=== PATIENT | male | born 1960 | race Caucasian/White ===

== ENCOUNTER 2018-02-07 06:13 | Observation (INO) | payer BC, OTHER ==
[~2018-02-07] VITALS: Ht 180.3 cm; Wt 91.9 kg
[~2018-02-07 06:13] MED LIST: ACET-1222 PO; ALBU1AER9 INH; AMIT10TA6 PO; ASPEC81 PO; DIVA250T PO; MAGN400T6 PO; MONT1TAB3 PO; NRV5 PO; PRAV40TA2 PO; PRT40 PO; RIBO100T9 PO
[2018-02-07] MEDS ORDERED: ACETAMINOPHEN 500 MG TAB PO STA (06:45)
[2018-02-07] MEDS ORDERED: ASPIRIN 81 MG CHEW PO STA (06:45)
[2018-02-07 07:02] LABS: HEMATOCRIT 43.8 % (42-52); HEMOGLOBIN 15.2 g/dL (14.0-18.0); MEAN CELL VOLUME 90.9 fL (80-100); MEAN CORPUSCULAR HEMOGLOBIN 31.5 pg (25-34); MEAN CORPUSCULAR HGB CONC 34.7 g/dl (32-36); MEAN PLATELET VOLUME 9.6 fL (7.4-10.4); PLATELET COUNT 285 K/uL (130-400); RED CELL DISTRIBUTION WIDTH SD 42.9 fL (36.4-46.3)
--- NOTE | 2018-02-07 07:07 | DIAGNOSTIC IMAGING REPORT ---
CHEST ONE VIEW PORTABLE CLINICAL HISTORY: 57 years-old Male presenting with CHEST PAIN. TECHNIQUE: Portable upright AP view of the chest was obtained. COMPARISON: 10/04/2016. FINDINGS: Cardiomediastinal silhouette normal. Mild prominence of pulmonary vasculature. Lungs and pleural spaces clear. Osseous structures normal. Upper abdomen normal. IMPRESSION: 1. No acute cardiopulmonary disease. Electronically signed by: Dhaval Medina M.D. 02/07/2018 7:05 AM Dictated Date/Time: 02/07/2018 7:02 AM
[2018-02-07] MEDS ORDERED: DIVA250T PO (07:08)
[2018-02-07 07:10] LABS: ALBUMIN 3.7 gm/dl (3.4-5.0); ALT/SGPT 35 U/L (12-78); AST/SGOT 18 U/L (15-37); BLOOD UREA NITROGEN 15 mg/dl (7-18); CARBON DIOXIDE 23 mmol/L (21-32); CREATININE 1.09 mg/dl (0.60-1.40); GLUCOSE 158 mg/dl (70-99); LIPASE 211 U/L (73-393); POTASSIUM 3.6 mmol/L (3.5-5.1); SODIUM 138 mmol/L (136-145)
[2018-02-07] MEDS ORDERED: AMLO5TAB4 PO (07:12)
[2018-02-07] MEDS ORDERED: ASPI81TA28 PO (07:12)
[2018-02-07] MEDS ORDERED: PANT40TA PO (07:12)
[2018-02-07 07:15] LABS: ALKALINE PHOSPHATASE 92 U/L (45-117)
[2018-02-07 07:17] LABS: PTT PATIENT 25.9 SECONDS (21.0-31.0)
--- NOTE | 2018-02-07 07:31 | EMERGENCY ROOM VISIT NOTE ---
History Report prepared by Jose Luis: Abram Alcantara Under the Supervision of: Dr. Joce Bond M.D. First contact with patient: 06:36 Chief Complaint: CHEST PAIN Stated Complaint: CHEST PAIN,MIGRAINE Nursing Triage Summary: Patient reports left sided chest pain that started last evening and got worse this morning. Denies shortness of breath, nausea, or diaphoresis. Patient has hx "cardiovaga syncope". Denies radiation of pain. History of Present Illness The patient is a 57 year old male who presents to the Emergency Room with complaints of intermittent left chest pain beginning last night (about 7.5 hours ago). The patient was laying in bed when his pain initially began. His pain resolved during the night, but returned this morning while at work. His pain is currently present, though improved. The patient rates his pain as a 6/ 10 in severity when at its worst. He denies any pain radiation. He has a history of migraines (for which he is on Depakote), and states that he has had a migraine with associated facial tingling recently (typical for him). The patient also complains of nausea this am. His most recent stress test was two years ago. He states that he felt normal earlier this week. The patient denies shortness of breath or diaphoresis. He denies any modifying factors. He notes that he has a history of cardiovagal syncope. Source of History: patient Onset: last night (7.5 hours ago) Position: chest (left) Symptom Intensity: 6/10 Timing: intermittent Modifying Factors (Worsening): other (none) Modifying Factors (Relieving): other (none) Associated Symptoms: + nausea, No diaphoresis, No SOB Review of Systems See HPI for pertinent positives & negatives. A total of 10 systems reviewed and were otherwise negative. Past Medical & Surgical Medical Problems: (1) Asthma (2) GERD (gastroesophageal reflux disease) (3) Hyperlipidemia (4) Migraine triggered seizures (5) Neurocardiogenic syncope Surgical Problems: (1) H/O colonoscopy (2) History of esophagogastroduodenoscopy (EGD) Family History Diabetes mellitus Stroke Social History Smoking Status: Never Smoker Alcohol Use: none Drug Use: none Marital Status: Housing Status: lives with significant other Occupation Status: employed Current/Historical Medications Scheduled Amlodipine Besylate (Norvasc), 2.5 MG PO QAM Aspirin (Aspirin Ec), 81 MG PO QAM Divalproex Sodium (Depakote Er), 1 TAB PO DIRECTED Divalproex Sodium (Depakote Er), 2 TAB PO HS Magnesium Oxide (Mag-Ox), 400 MG PO QAM Montelukast Sodium (Singulair), 10 MG PO QAM Pantoprazole (Protonix), 40 MG PO 1000 Pravastatin Sodium (Pravastatin Sodium), 40 MG PO HS Riboflavin (Vitamin B-2), 100 MG PO QAM Scheduled PRN Acetaminophen (Acetaminophen Extra Stren), 1,000 MG PO Q8 PRN for Pain or Fever Albuterol (Proair Hfa), 2 PUFFS INH Q4H PRN for Asthma Symptoms Allergies Coded Allergies: Azithromycin (Verified Allergy, Intermediate, ITCHING, 02/07/18) Physical Exam Vital Signs Date Time Temp Pulse Resp B/P (MAP) Pulse Ox O2 Delivery O2 Flow Rate FiO2 02/07/18 10:29 62 02/07/18 10:01 94 Room Air 02/07/18 09:02 64 14 112/76 94 Room Air 02/07/18 07:42 61 16 134/68 96 Room Air 02/07/18 06:29 73 02/07/18 06:19 98 Room Air 02/07/18 06:19 36.7 68 18 144/79 98 Room Air Physical Exam GENERAL: Patient is in no acute distress. HEENT: No acute trauma, normocephalic atraumatic, mucous membranes moist, no nasal congestion, no scleral icterus. NECK: No stridor, no adenopathy, no meningismus, trachea is midline. LUNGS: Clear to auscultation bilaterally, no wheeze, no rhonchi, breath sounds equal. HEART: Without murmurs gallops or rubs, regular rate and rhythm. CHEST: Mildly tender to the anterior chest wall. ABDOMEN: Soft, nontender, bowel sounds positive, no hernias, no peritonitis. EXTREMITIES: No cyanosis or edema, full range of motion of all the joints without pain or difficulty, no signs for acute trauma. NEUROLOGIC: Oriented x 3, no acute motor or sensory deficits, no focal weakness. SKIN: No rash, no jaundice, no diaphoresis. Medical Decision & Procedures ER Provider Diagnostic Interpretation: Radiology results as stated below per my review and radiologist interpretation: CHEST ONE VIEW PORTABLE. FINDINGS: Cardiomediastinal silhouette normal. Mild prominence of pulmonary vasculature. Lungs and pleural spaces clear. Osseous structures normal. Upper abdomen normal. IMPRESSION: 1. No acute cardiopulmonary disease. Electronically signed by: Dhaval Medina M.D. 02/07/2018 7:05 AM Laboratory Results 02/07/18 06:26 02/07/18 06:26 Test 02/07/18 06:26 Red Blood Count 4.82 M/uL (4.7-6.1) Mean Corpuscular Volume 90.9 fL (80-100) Mean Corpuscular Hemoglobin 31.5 pg (25-34) Mean Corpuscular Hemoglobin Concent 34.7 g/dl (32-36) RDW Standard Deviation 42.9 fL (36.4-46.3) RDW Coefficient of Variation 13.0 % (11.5-14.5) Mean Platelet Volume 9.6 fL (7.4-10.4) Prothrombin Time 10.3 SECONDS (9.0-12.0) Prothromb Time International Ratio 1.0 (0.9-1.1) Activated Partial Thromboplast Time 25.9 SECONDS (21.0-31.0) Partial Thromboplastin Ratio 1.0 D-Dimer < 190 ug/L FEU (0-500) Anion Gap 9.0 mmol/L (3-11) Est Creatinine Clear Calc Drug Dose 88.8 ml/min Estimated GFR () 88.1 Estimated GFR (Non- 76.0 BUN/Creatinine Ratio 13.7 (10-20) Calcium Level 9.0 mg/dl (8.5-10.1) Total Bilirubin 0.4 mg/dl (0.2-1) Aspartate Amino Transf (AST/SGOT) 18 U/L (15-37) Alanine Aminotransferase (ALT/SGPT) 35 U/L (12-78) Alkaline Phosphatase 92 U/L (45-117) Total Protein 7.0 gm/dl (6.4-8.2) Albumin 3.7 gm/dl (3.4-5.0) Globulin 3.3 gm/dl (2.5-4.0) Albumin/Globulin Ratio 1.1 (0.9-2) Lipase 211 U/L (73-393) Valproic Acid (Depakene) Level 62 mcg/ml (50-100) Hepatitis C Antibody Screen NEG (NEG) Laboratory results reviewed by me. Medications Administered Medications (Trade) Dose Ordered Sig/Fernando Route Start Time Stop Time Status Last Admin Dose Admin Aspirin (Aspirin Chew) 324 mg NOW STAT PO 02/07/18 06:45 02/07/18 06:47 DC 02/07/18 07:00 324 MG Acetaminophen (Tylenol Tab) 1,000 mg NOW STAT PO 02/07/18 06:45 02/07/18 06:47 DC 02/07/18 07:00 1,000 MG Morphine Sulfate (MoRPHine SULFATE INJ) 2 mg NOW STAT IV 02/07/18 10:46 02/07/18 10:59 DC 02/07/18 11:36 2 MG ECG Per My Interpretation Indication: chest pain Rate (beats per minute): 72 Rhythm: normal sinus Findings: other (Diffuse non-specific ST change. No ST elevation. No PVCs.) Comparison ECG Date: 10/05/2016 Change: Non-specific ST changes are new. ED Course 0639: The patient was evaluated in room A3. A complete history and physical exam was performed. 0645: Ordered Tylenol Tab 1000 mg PO, Aspirin Chew 324 mg PO. 0801: I updated the patient on his results. 0920: Upon reexamination the patient is resting comfortably. I discussed results and treatment plan with the patient. He verbalizes agreement and understanding. [facility] We discussed the patient's results and findings. The patient will be evaluated by [facility] for further management. Medical Decision The patient is a 57 year old male who presents to the ED with complaints of chest pain. Differential diagnoses considered include angina, musculoskeletal pain, dissection, PE, pneumonia, pneumothorax and VT. There is no leukocytosis or concerning anemia. No significant electrolyte abnormality or kidney failure. No hepatitis. EKG shows a normal sinus rhythm with some nonspecific ST changes laterally, these nonspecific changes are new looking back at old EKGs. Cardiac enzyme testing 2 does not show evidence for acute cardiac injury. Chest x-ray does not show pneumonia, mediastinal widening or pneumothorax. Valproic acid level is not elevated. There is no coagulopathy. The patient presents with anterior chest pain. The pain does seem reproducible on my exam. He did receive oral aspirin and oral Tylenol and basically feels about the same. He complains of a migraine but has a history of migraines. I spoke with Dr. Johnson of cardiology. He did see the patient in the ED. Admission/observation and further workup within the hospital was advised. The patient is currently resting. At this point, the cause for the chest pain is unclear. Medication Reconcilliation Current Medication List: was personally reviewed by me Blood Pressure Screening Patient's blood pressure: Normal blood pressure Blood pressure disposition: Did not require urgent referral Consults Time Called: 075 Consulting Physician: Dr. Johnson - Cardiology Returned Call: 075 Discussed the patient's case. Dr. Johnson recommends a repeat Troponin at 0830. He recommends a stress echocardiogram be ordered if the repeat Troponin is negative. 0918: I spoke with Dr. Johnson again. He cannot perform a stress echo at this time, as the patient is in too much pain currently. He recommends admission to the hospital. He will perform a resting echocardiogram now. Additional Consults: Time Called: 09 Consulted Physician: Lois Vides [facility] Hospitalist Returned Call: 09 Additional Comments: Discussed the patient's case. The patient will be evaluated for further management. Impression Primary Impression: Precordial chest pain Scribe Attestation The scribe's documentation has been prepared under my direction and personally reviewed by me in its entirety. I confirm that the note above accurately reflects all work, treatment, procedures, and medical decision making performed by me. Departure Information Dispostion Being Evaluated By Hospitalist Referrals Michael Morrow DO (PCP) Patient Instructions My [facility]
[2018-02-07 10:01] VITALS: O2SAT 94; Ht 180.3 cm; Wt 91.9 kg
[2018-02-07] MEDS ORDERED: MoRPHine SULFATE 2 MG/ML CARP IV STA (10:46)
[2018-02-07] MEDS ORDERED: MoRPHine SULFATE 2 MG/ML CARP IV PRN ×2 (11:00→11:45)
[2018-02-07] MEDS ORDERED: ACETAMINOPHEN 325 MG TAB PO PRN (11:00)
[2018-02-07] MEDS ORDERED: ONDANSETRON INJ 2 MG/ML 2 ML VIAL IV PRN (11:00)
[2018-02-07] MEDS ORDERED: NITROGLYCERIN 0.4 MG SL PER TAB CHARGE SL PRN (11:00)
[2018-02-07] MEDS ORDERED: MAGNESIUM HYDROXIDE SUSP 30 ML UDC PO PRN (11:00)
[2018-02-07] MEDS ORDERED: ALUMINUM/MAGNESIUM/SIMETH (MAALOX MAX) 30 ML UDC PO PRN (11:00)
[2018-02-07] MEDS ORDERED: ALBUTEROL HFA 8 GM INHALER INH PRN (11:00)
--- NOTE | 2018-02-07 11:05 | ECHOCARDIOGRAM REPORT ---
*NOTICE TO RECEIVING [employer] This information is strictly Confidential and protected under [place] law. [place] law prohibits you from making any further disclosure of this information unless further disclosure is expressly permitted by the written consent of the person to whom it pertains or is authorized by law. A general authorization for the release of medical or other information is not sufficient for this purpose. Hospital accepts no responsibility if the information is made available to any other person, INCLUDING THE PATIENT. Interpretation Summary * Name: PAULIE REY Study Date: 02/07/2018 08:26 AM BP: 112/76 mmHg * Patient Location: [facility] HR: 58 * : 1960 (M/d/yyyy) Gender: Male Height: 71 in * Age: 57 yrs Ethnicity: [place] Weight: 203 lb * Ordering Physician: Ashok Johnson * Referring Physician: Self, Referred * Performed By: Macey Yoon RDCS * * Reason For Study: CHEST PAIN * BSA: 2.1 m2 * Compared to previous study, diastolic function is normal. * The study was technically adequate. * -- Conclusions -- * Left ventricular systolic function is normal. * Ejection Fraction = 60-65%. * The left ventricular wall motion is normal. * Pulse wave TDI of the anterior and posterior mitral annulas demonstrates normal LV relaxation * No significant valvular pathology. Procedure Details * A complete two-dimensional transthoracic echocardiogram was performed (2D, M-mode, Doppler and color flow Doppler). Left Ventricle * The left ventricle is normal in size. * There is normal left ventricular wall thickness. * Ejection Fraction = 60-65%. * Left ventricular systolic function is normal. * The left ventricular wall motion is normal. Right Ventricle * The right ventricle is normal size. * The right ventricular systolic function is normal as assessed by tricuspid annular plane systolic excursion (TAPSE) (normal >1.5 cm). Atria * The left atrial size is normal. * Right atrial size is normal. * There is no evidence of atrial septal defect, but resolution does not allow assessment for a patent foramen ovale. Mitral Valve * The mitral valve is normal. * There is no mitral valve stenosis. * Significant mitral regurgitation is absent. Tricuspid Valve * The tricuspid valve is normal. * There is no tricuspid stenosis. * Significant tricuspid regurgitation is absent. Aortic Valve * The aortic valve is trileaflet. * Aortic stenosis is absent. * There is no significant aortic regurgitation. Pulmonic Valve * The pulmonary valve is not well seen, but the Doppler examination is normal without significant regurgitation or stenosis. Great Vessels * The aortic root and proximal ascending aorta are normal sized. Pericardium/Pleural * There is no pericardial effusion. Great Vessels * Normal inferior vena cava diameter and respiratory variation suggests normal central venous pressure. Left Ventricular Diastolic Function * Pulse wave TDI of the anterior and posterior mitral annulas demonstrates normal LV relaxation MMode 2D Measurements and Calculations IVSd 0.90 cm IVSs 1.7 cm LVIDd 4.7 cm LVIDs 3.2 cm LVPWd 1.0 cm LVPWs 1.5 cm IVS/LVPW 0.88 FS 32.3 % EDV(Teich) 103.9 ml ESV(Teich) 41.1 ml EF(Teich) 60.5 % EDV(cubed) 105.9 ml ESV(cubed) 32.9 ml EF(cubed) 68.9 % % IVS thick 91.2 % % LVPW thick 45.2 % LV mass(C)d 157.6 grams LV mass(C)dI 74.3 grams/m\S\2 LV mass(C)s 192.4 grams LV mass(C)sI 90.7 grams/m\S\2 SV(Teich) 62.8 ml SI(Teich) 29.6 ml/m\S\2 SV(cubed) 73.0 ml SI(cubed) 34.4 ml/m\S\2 Ao root diam 3.3 cm Ao root area 8.8 cm\S\2 LVAd ap4 25.2 cm\S\2 LVLd ap4 8.5 cm EDV(MOD-sp4) 61.6 ml EDV(sp4-el) 63.8 ml LVAs ap4 15.4 cm\S\2 LVLs ap4 7.1 cm ESV(MOD-sp4) 29.4 ml ESV(sp4-el) 28.2 ml EF(MOD-sp4) 52.2 % EF(sp4-el) 55.7 % LVAd ap2 27.4 cm\S\2 LVLd ap2 8.9 cm EDV(MOD-sp2) 67.9 ml EDV(sp2-el) 71.1 ml LVAs ap2 16.0 cm\S\2 LVLs ap2 7.2 cm ESV(MOD-sp2) 29.1 ml ESV(sp2-el) 30.0 ml EF(MOD-sp2) 57.2 % EF(sp2-el) 57.8 % LVLd %diff 5.1 % EDV(MOD-bp) 67.0 ml LVLs %diff 1.0 % ESV(MOD-bp) 28.9 ml EF(MOD-bp) 56.9 % SV(MOD-sp4) 32.2 ml SI(MOD-sp4) 15.2 ml/m\S\2 SV(MOD-sp2) 38.9 ml SI(MOD-sp2) 18.3 ml/m\S\2 SV(MOD-bp) 38.1 ml SI(MOD-bp) 17.9 ml/m\S\2 SV(sp4-el) 35.5 ml SI(sp4-el) 16.7 ml/m\S\2 SV(sp2-el) 41.1 ml SI(sp2-el) 19.4 ml/m\S\2 Doppler Measurements and Calculations MV E max elissa 98.9 cm/sec MV A max elissa 62.3 cm/sec MV E/A 1.6 MV dec time 0.27 sec Ao V2 max 119.8 cm/sec Ao max PG 5.7 mmHg Ao max PG (full) 2.4 mmHg LV V1 max PG 3.3 mmHg LV V1 max 91.3 cm/sec TR max elissa 216.4 cm/sec
--- NOTE | 2018-02-07 11:50 | History and Physical ---
History & Physical Date & Time of Service: Feb 07, 2018 at 10:54 Chief Complaint: Chest Pain,Migraine Primary Care Physician: Michael Morrow, DO History of Present Illness Source: patient, clinic records, hospital records Pt is 57 y/o M with PMH migraine headache, migraine seizures follows with Dr. Curry, neurocardiogenic syncope diagnosed by tilt table, dyslipidemia, GERD, asthma, positional sleep apnea presented to ER with chief complaint of chest pain. Patient reports yesterday started with migraine headache with associated left facial and left arm tingling. He reports this is his normal presentation of migraine headaches. He reports eating migraine headache approximately once a week, previously was getting several times a week prior to being placed on Depakote. Patient states last evening prior to falling asleep he started with anterior chest pain greater to the left side described as sharp pain. Reports was able to fall asleep and this morning awoke without any chest pain. He was at work this morning walking when he started with chest pain again. Pauline a little nauseated. He reports he still has migraine headache with left facial tingling. Patient denies heavy lifting or injury to chest. Denies recent illness, shortness of breath, palpitations, recent dizziness or syncope. Denies fever/chills, diaphoresis, V/D/C, vision changes, neck pain, SOB, orthopnea, cough, sore throat, choking, otalgia, rhinorrhea, abdominal pain, extremity weakness, extremity edema, rashes, urinary symptoms. Patient with history of similar presentation of chest pain and migraine headache in September 2016 and was admitted at that time. Had stress echo at that time EF: 55-60%, no inducible ischemia, no structural abnormalities. At that point in time patient had increased headache with nitroglycerin. He reports received 1 dose of morphine which relieved both chest pain and headache. In the ER patient given aspirin for chest pain and 1 g Tylenol for headache. Initial troponin negative, EKG nonspecific ST wave changes. Negative d-dimer. [facility] Specialist-Dr. Johnson consulted. Second troponin II hours later was negative. Initial plan was to do stress test this morning however patient complains of continued intermittent chest pain. Dr. Johnson ordered resting echo. Past Medical/Surgical History Medical Problems: (1) Asthma Status: Chronic (2) GERD (gastroesophageal reflux disease) Status: Chronic (3) Hyperlipidemia Status: Chronic (4) Migraine triggered seizures Status: Chronic (5) Neurocardiogenic syncope Status: Chronic Surgical Problems: (1) H/O colonoscopy Status: Chronic (2) History of esophagogastroduodenoscopy (EGD) Status: Chronic Family History Diabetes mellitus Stroke Social History Smoking Status: Never Smoker Smokeless Tobacco Use: Yes (2-3 cans a week) Alcohol Use: none Drug Use: none Marital Status: Housing status: lives with significant other Occupational Status: employed Immunizations History of Influenza Vaccine: N/A History of Tetanus Vaccine?: UNK History of Pneumococcal: Yes History of Hepatitis B Vaccine: No Allergies Coded Allergies: Azithromycin (Verified Allergy, Intermediate, ITCHING, 02/07/18) Home Medications Scheduled Amlodipine Besylate (Norvasc), 2.5 MG PO QAM Aspirin (Aspirin Ec), 81 MG PO QAM Divalproex Sodium (Depakote Er), 1 TAB PO DIRECTED Divalproex Sodium (Depakote Er), 2 TAB PO HS Magnesium Oxide (Mag-Ox), 400 MG PO QAM Montelukast Sodium (Singulair), 10 MG PO QAM Pantoprazole (Protonix), 40 MG PO 1000 Pravastatin Sodium (Pravastatin Sodium), 40 MG PO HS Riboflavin (Vitamin B-2), 100 MG PO QAM Scheduled PRN Acetaminophen (Acetaminophen Extra Stren), 1,000 MG PO Q8 PRN for Pain or Fever Albuterol (Proair Hfa), 2 PUFFS INH Q4H PRN for Asthma Symptoms Review of Systems Constitutional: No fever, No chills, No sweats, No weight loss, No weakness, No fatigue Eyes: No worsening of vision, No eye pain, No redness, No diplopia ENT: No hearing loss, No unusual epistaxis, No nasal symptoms, No sore throat, No tinnitus, No trouble swallowing Respiratory: No cough, No sputum, No wheezing, No shortness of breath, No dyspnea on exertion, No dyspnea at rest, No hemoptysis Cardiovascular: + chest pain (see HPI), No orthopnea, No PND, No edema, No claudication, No palpitations Abdomen: No pain, No nausea, No vomiting, No diarrhea, No constipation, No GI bleeding Musculoskeletal: No joint pain, No swelling, No calf pain Genitourinary - Male: No hematuria, No dysuria, No urinary frequency, No urinary urgency Neurologic: + problem reported (GRAVES, left facial paresthesias - hx migraine, reports his usual symptoms), No memory loss, No vertigo, No balance problems Psychiatric: No depression symptoms, No anxiety Endocrine: No fatigue, No excessive thirst, No excessive urination Hematologic / Lymphatic: No abnormal bleeding/bruising, No clotting problems, No night sweats Integumentary: No rash, No itch Physical Exam Vital Signs Date Time Temp Pulse Resp B/P (MAP) Pulse Ox O2 Delivery O2 Flow Rate FiO2 02/07/18 10:29 62 02/07/18 10:01 94 Room Air 02/07/18 09:02 64 14 112/76 94 Room Air 02/07/18 07:42 61 16 134/68 96 Room Air 02/07/18 06:29 73 02/07/18 06:19 98 Room Air 02/07/18 06:19 36.7 68 18 144/79 98 Room Air General Appearance: WD/WN, no apparent distress Head: normocephalic, atraumatic Eyes: normal inspection, PERRL, EOMI, sclerae normal ENT: hearing grossly normal, pharynx normal, + pertinent finding (mucous membranes moist) Neck: supple, no JVD, trachea midline Respiratory/Chest: lungs clear, normal breath sounds, no respiratory distress, + pertinent finding (mild tenderness to palpation left chest) Cardiovascular: regular rate, rhythm, no murmur, normal peripheral pulses Abdomen/GI: normal bowel sounds, non tender, soft Extremities/Musculoskelatal: normal inspection, no calf tenderness, normal capillary refill, no pedal edema, normal range of motion, non-tender Neurologic/Psych: no motor/sensory deficits, alert, normal mood/affect, oriented x 3 Skin: normal color, warm/dry, no rash Diagnostics Laboratory Results Results Past 24 Hours Test 02/07/18 06:26 02/07/18 08:30 Range/Units White Blood Count 7.20 4.8-10.8 K/uL Red Blood Count 4.82 4.7-6.1 M/uL Hemoglobin 15.2 14.0-18.0 g/dL Hematocrit 43.8 42-52 % Mean Corpuscular Volume 90.9 80-100 fL Mean Corpuscular Hemoglobin 31.5 25-34 pg Mean Corpuscular Hemoglobin Concent 34.7 32-36 g/dl RDW Standard Deviation 42.9 36.4-46.3 fL RDW Coefficient of Variation 13.0 11.5-14.5 % Platelet Count 285 130-400 K/uL Mean Platelet Volume 9.6 7.4-10.4 fL Prothrombin Time 10.3 9.0-12.0 SECONDS Prothromb Time International Ratio 1.0 0.9-1.1 Activated Partial Thromboplast Time 25.9 21.0-31.0 SECONDS Partial Thromboplastin Ratio 1.0 D-Dimer < 190 0-500 ug/L FEU Sodium Level 138 136-145 mmol/L Potassium Level 3.6 3.5-5.1 mmol/L Chloride Level 106 98-107 mmol/L Carbon Dioxide Level 23 21-32 mmol/L Anion Gap 9.0 3-11 mmol/L Blood Urea Nitrogen 15 7-18 mg/dl Creatinine 1.09 0.60-1.40 mg/dl Est Creatinine Clear Calc Drug Dose 88.8 ml/min Estimated GFR () 88.1 Estimated GFR (Non- 76.0 BUN/Creatinine Ratio 13.7 10-20 Random Glucose 158 70-99 mg/dl Calcium Level 9.0 8.5-10.1 mg/dl Total Bilirubin 0.4 0.2-1 mg/dl Aspartate Amino Transf (AST/SGOT) 18 15-37 U/L Alanine Aminotransferase (ALT/SGPT) 35 12-78 U/L Alkaline Phosphatase 92 45-117 U/L Troponin I < 0.015 < 0.015 0-0.045 ng/ml Total Protein 7.0 6.4-8.2 gm/dl Albumin 3.7 3.4-5.0 gm/dl Globulin 3.3 2.5-4.0 gm/dl Albumin/Globulin Ratio 1.1 0.9-2 Lipase 211 73-393 U/L Valproic Acid (Depakene) Level 62 50-100 mcg/ml Diagnostic Radiology CXR: IMPRESSION: 1. No acute cardiopulmonary disease. EKG initial EKG: NSR, rate 72, non-specific ST wave abnormality repeat EKG: sinus nishant, rate 59, no ST elevations noted Impression Assessment and Plan CHEST PAIN R/O ACS. Risk factors: hyperlipidemia Pt presented with anterior CP started last night and resolved and again this morning with associated migraine GRAVES. Negative initial troponin. Negative d- dimer. EKG non-specific ST changes. Pt with continued CP, morphine and Toradol ordered, holding on nitro at this time secondary to pt low BP and hx worsening GRAVES in past from nitro. -Monitor Vitals -Repeat EKG in am -Will trend troponin -resting echo ordered by cardiology -Cardiology consulted and discussed, probable stress test in am -lipid panel in am, continue statin -continue ASA -Nitro prn CP and repeat EKG for CP -Morphine prn CP MIGRAINE GRAVES Pt with chronic migraine GRAVES, follows with Dr Curry. Denies any changes in symptoms. Depakote level: 62. Trial of morphine and Toradol. -continue Depakote, magnesium and riboflavin -Toradol prn GRAVES DYSLIPIDEMIA Lipid panel 05/2017 - Total: 178, HDL: 40, LDL: 120, Tri -continue statin GERD -continue Protonix ASTHMA No SOB or wheezing. Stable -continue albuterol inhaler prn, continue Singulair DVT Prophylaxis -Lovenox SQ Disposition admit tele Full Code Follows with Dr Desmond CARLTON for routine care Pt was seen with Dr Godinez. See addendum Attending addendum; Patient seen and examined care coordinated Lois Christiansen PA-C 57-year-old male with past medical history of migraine headache, hyperlipidemia presented to ER with complaint of persistent right-sided headache, left-sided sharp chest pain Pain started earlier this morning, feels sharp stabbing discomfort No complaint of shortness of breath no dizzy spells or lightheadedness Patient does not have any prior history of [place] No family history of coronary artery disease EKG in the ER normal sinus rhythm no ST-T wave changes, cardiac markers 2 sets negative D-dimer negative Physical exam: General: Well built, well appearing gentleman HEENT: Sclera nonicteric PERRLA/EOMI Lungs: Clear to auscultate no wheezes rales Heart regular S1-S2 Abdomen :soft nontender Extremity :no edema, no rash or deformity Neuro :no focal neurological deficit and alert awake oriented 3 Assessment and plan: Chest pain: Symptoms typical for angina, Started with headache, later developed central /left-sided -aching/sharp chest pain -No shortness of breath, no dyspnea on exertion D-dimer negative- -patient will be evaluated in telemetry -Cardiology eval appreciated Scheduled for cardiac stress test tomorrow- Headache/history of migraine: CT head negative for acute change Continue outpatient medication-Depakote Patient follows with neurology Dr. Curry- full code Please refer to for the documentation by Lois Christiansen PA-C for further discussion of other chronic issues. Munira Godinez MD Advanced Directives Existing Living Will: No Existing Power of Bag Washer: No Resuscitation Status Full Code VTE Prophylaxis Will order VTE Prophylaxis: Yes Additional Copies To Rodri Logan M.D.
[2018-02-07] MEDS ORDERED: KETOROLAC TROMETHAMINE 30 MG/ML VIAL IV STA (12:19)
[2018-02-07 13:33] VITALS: BP 114/66; PULSE 59; TEMP 36.6; O2SAT 92
--- NOTE | 2018-02-07 14:24 | Cardiology Consultation ---
Cardiology Consultation Date of Consultation: Feb 07, 2018 History of Present Illness Sebastian Li is a 57 year old male seen in cardiology consultation in the emergency room per the request of Dr. Bond for the evaluation of chest discomfort. The patient's primary seating and mobility technologist is Dr. Morrow of our practice. The patient carries a history of neurocardiogenic syncope and seizure disorder. He also has a long-standing history of migraine headache disorder. He describes onset of waxing and waning left arm pain 4 days ago. Sometimes he gets pain in his left arm as well as his face that are associated with his typical migraines, but he did not initially have a headache. He then missed work for the last 2 days because of headache. Last night he noticed left-sided chest pain. He went to bed at between 10 and 10:30 PM and he is able to fall sleep and he felt well when he first woke up this morning. 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 He has had occasional recent brief dizzy spells but no briana syncope. During my assessment of the patient in the emergency room he was uncomfortable with left-sided chest discomfort. His initial EKG performed at 619 in the morning revealed normal sinus rhythm with nonspecific T-wave flattening noted in the anterior and lateral precordial leads which were new compared to his previous baseline dating back to 2015. Repeat EKG was performed when I was at the bedside at 9:19 AM with normalization of the previously noted nonspecific changes. Sinus bradycardia was present in the EKG was unchanged compared to his previous normal baseline. A stat bedside transthoracic echocardiogram was performed with normal left ventricular wall motion and no significant valvular heart disease. Of note, the patient was seen by the undersigned cardiology consultation for a similar presentation in September 2016. At that time he had a nonischemic response to dobutamine stress test, however at the end of the dobutamine infusion he did have onset of his migraine symptoms with associated left arm and left chest discomfort. This was attributed to migraine symptoms and no further cardiac testing was recommended at that time. Past Medical/Surgical History Problem List: Medical Problems: (1) Asthma (2) GERD (gastroesophageal reflux disease) (3) Hyperlipidemia (4) Migraine triggered seizures (5) Neurocardiogenic syncope Surgical Problems: (1) H/O colonoscopy (2) History of esophagogastroduodenoscopy (EGD) History Past Medical History: 1. Neurocardiogenic syncope with past abnormal tilt table test 2. Migraine headaches with associated seizures 3. Gastroesophageal reflux disease 4. Dyslipidemia Past Surgical History: 1. Colonoscopy 2. EGD 9 3. 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 Former smoker. No alcohol or drug use. Family History: Father with history of stroke age 55. No history of CAD in his family members. Review Of Systems A 10 point review of systems was reviewed and is negative with exception of that outlined above Allergies Coded Allergies: Azithromycin (Verified Allergy, Intermediate, ITCHING, 02/07/18) Medications Reported Home Medications Medications Dose Route/Sig Max Daily Dose Days Date Category Dose Instructions Protonix (Pantoprazole Sodium) 40 Mg Tab 40 Mg PO 1000 02/07/18 Reported Aspirin Ec (Aspirin) 81 Mg Tab 81 Mg PO QAM 02/07/18 Reported Norvasc (Amlodipine Besylate) 5 Mg Tab 2.5 Mg PO QAM 02/07/18 Reported Depakote Er (Divalproex Sodium) 250 Mg Tab 2 Tab PO HS 02/07/18 Reported Vitamin B-2 (Riboflavin) 100 Mg Tab 100 Mg PO QAM 10/04/16 Reported Mag-Ox (Magnesium Oxide) 400 Mg Tab 400 Mg PO QAM 10/04/16 Reported Depakote Er (Divalproex Sodium) 250 Mg Tab 1 Tab PO DIRECTED 10/04/16 Reported 1 tab po in AM Singulair (Montelukast Sodium) 10 Mg Tab 10 Mg PO QAM 02/08/15 Reported Acetaminophen Extra Stren (Acetaminophen) 500 Mg Tab 1,000 Mg PO Q8 PRN 12/03/14 Reported Pravastatin Sodium 40 Mg Tab 40 Mg PO HS 09/11/13 Reported Proair Hfa (Albuterol) Aers 2 Puffs INH Q4H PRN 04/30/13 Reported Physical Exam Vital Signs (Last 8hrs): Last 8 Hrs Date Time Temp Pulse Resp B/P (MAP) Pulse Ox O2 Delivery O2 Flow Rate FiO2 02/07/18 13:33 36.6 59 16 114/66 (82) 92 Room Air 02/07/18 10:55 72 22 108/77 96 Room Air 02/07/18 10:29 62 02/07/18 10:01 94 Room Air 02/07/18 09:02 64 14 112/76 94 Room Air 02/07/18 07:42 61 16 134/68 96 Room Air 02/07/18 06:29 73 02/07/18 06:19 98 Room Air 02/07/18 06:19 36.7 68 18 144/79 98 Room Air General Appearance: Alert and Oriented x3. NAD. Head: Normocephalic Atraumatic. Eyes: PERRLA, EOMI, conjunctiva and sclera clear Neck: Supple. No carotid bruits noted. No JVD. No HJD. Respiratory: Breath sounds clear to auscultation bilaterally. No w/r/r. Cardiovascular: Reg rate and rhythm. S1 and S2 noted. No murmurs, rubs, gallops. PMI non displace. Abdomen: Normal bowel sounds, soft nontender. no abdominal bruits. Extremities: No edema, no clubbing or cyanosis. distal pulses 2/4 bilaterally. Neuro: No focal deficits. Psychiatric: Normal affect. Data Last Resulted 02/07/18 06:26 Last Resulted 02/07/18 06:26 Past 24 Hours Test 02/07/18 06:26 02/07/18 08:30 02/07/18 13:00 Range/Units Prothromb Time International Ratio 1.0 0.9-1.1 Prothrombin Time 10.3 9.0-12.0 SECONDS Troponin I < 0.015 < 0.015 < 0.015 0-0.045 ng/ml EKGs as outlined above. Assessment & Plan Impression: 57-year-old male Atypical chest discomfort, in the past seem to be associated with his migraine headache syndromes, he has missed work for 2 days due to migraine headache. Initially several days ago he had left arm pain, this progressed to his apical migraine, now he is complaining of chest discomfort as well. Discussion/recommendations: The patient has had 3 troponin levels that have been normal thus far the initial level was 626 this morning and a repeat was 2 hours later a 30, he had an additional reading in the interim since I had initially evaluated the patient came back at 1300 and was also negative. Continue his migraine headache medications and seizure medications. Plan for ongoing observation, further ischemic workup depending upon his course.
[2018-02-07 15:36] VITALS: BP 101/61; PULSE 57; TEMP 36.7; O2SAT 96
[2018-02-07] MEDS ORDERED: INFLUENZA ADMINISTRATION CHARGE ONE (16:30)
[2018-02-07] MEDS ORDERED: IV FLUIDS COMPLETED PRN (16:30)
[2018-02-07] MEDS ORDERED: INFLUENZA VIRUS QUAD VACCINE 0.5 ML SYR IM. ONE (16:30)
--- NOTE | 2018-02-07 17:05 | Neurology Consultation ---
Neurology Consultation Date of Consultation: Feb 07, 2018. Attending Physician: Kyung Stack M.D. Primary Care Physician: Michael Morrow DO Reason for Consultation: migraine headache disorder History of Present Illness Source: patient, spouse Sebastian is a 57 year old male with PMH migraine headache follows with Dr. Curry , neurocardiogenic syncope diagnosed by tilt table, dyslipidemia, GERD, asthma, positional sleep apnea presented to ER with chief complaint of chest pain. His migraine headache with associated left facial and left arm tingling which is usual for him. He had a migraine headache approximately once a week, previously was getting several times a week prior to being placed on Depakote. He started having anterior chest pain greater to the left side described as sharp pain. He went to work and was walking when he started with chest pain and still has ongoing migraine headache with left facial tingling. He had a similar episode of chest pain and migraine headache in September 2016 and was admitted at that time. Had stress echo at that time EF: 55-60%, no inducible ischemia, no structural abnormalities. At that point in time patient had increased headache with nitroglycerin. He reports received 1 dose of morphine which relieved both chest pain and headache. today he states the headache is coming and going no as severe as before but he did have a dose of morphine to help with the pain. denies SOB, abdominal pain, swallowing issues, falls, vision changes, +tingling in hands, numbness of face, and headache. Past Medical/Surgical History Medical Problems: (1) Paresthesia Status: Acute (2) Precordial chest pain Status: Acute Social History Smoking Status: Former smoker Smokeless Tobacco Use: Yes (2-3 cans a week) Alcohol Use: none Drug Use: none Marital Status: Housing Status: lives with significant other Occupation Status: employed Allergies Coded Allergies: Azithromycin (Verified Allergy, Intermediate, ITCHING, 02/07/18) Current Inpatient Medications Current Inpatient Medications Medications (Trade) Dose Ordered Sig/Fernando Route Start Time Stop Time Status Last Admin Dose Admin Enoxaparin Sodium (Lovenox Inj) 40 mg Q24H SC 02/07/18 18:00 03/09/18 17:59 Acetaminophen (Tylenol Tab) 650 mg Q4H PRN PO 02/07/18 11:00 03/09/18 10:59 Al Hydrox/Mg Hydrox/Simethicone (Maalox Max Susp) 15 ml Q4H PRN PO 02/07/18 11:00 03/09/18 10:59 Magnesium Hydroxide (Milk Of Magnesia Susp) 30 ml Q12H PRN PO 02/07/18 11:00 03/09/18 10:59 Ondansetron HCl (Zofran Inj) 4 mg Q6H PRN IV 02/07/18 11:00 03/09/18 10:59 Nitroglycerin (Nitrostat Tab) 0.4 mg UD PRN SL 02/07/18 11:00 03/09/18 10:59 Albuterol (Ventolin Hfa Inhaler) 2 puffs Q4H PRN INH 02/07/18 11:00 03/09/18 10:59 Amlodipine Besylate (Norvasc Tab) 2.5 mg QAM PO 02/08/18 09:00 03/10/18 08:59 Aspirin (Ecotrin Tab) 81 mg QAM PO 02/08/18 09:00 03/10/18 08:59 Divalproex Sodium (Depakote Extended Rel Tab) 250 mg DAILY PO 02/08/18 09:00 03/10/18 08:59 Divalproex Sodium (Depakote Extended Rel Tab) 500 mg HS PO 02/07/18 21:00 03/09/18 20:59 Magnesium Oxide (Mag-Ox Tab) 400 mg QAM PO 02/08/18 09:00 03/10/18 08:59 Montelukast Sodium (Singulair Tab) 10 mg QAM PO 02/08/18 09:00 03/10/18 08:59 Pantoprazole Sodium (Protonix Tab) 40 mg DAILY@1000 PO 02/08/18 10:00 03/10/18 09:59 Pravastatin Sodium (Pravachol Tab) 40 mg HS PO 02/07/18 21:00 03/09/18 20:59 Miscellaneous Information (Order Awaiting Action) 1 ea QS N/A 02/07/18 16:00 03/09/18 15:59 Morphine Sulfate (MoRPHine SULFATE INJ) 2 mg Q4 PRN IV 02/07/18 11:45 02/21/18 10:59 Ketorolac Tromethamine (Toradol Inj) 30 mg Q6H PRN IV 02/07/18 12:00 02/12/18 11:59 Physical Exam Vital Signs (Past 24 Hrs): Date Time Temp Pulse Resp B/P (MAP) Pulse Ox O2 Delivery O2 Flow Rate FiO2 02/07/18 16:00 Nasal Cannula 2.0 02/07/18 15:36 36.7 57 20 101/61 (74) 96 Room Air 02/07/18 13:33 36.6 59 16 114/66 (82) 92 Room Air 02/07/18 10:55 72 22 108/77 96 Room Air 02/07/18 10:29 62 02/07/18 10:01 94 Room Air 02/07/18 09:02 64 14 112/76 94 Room Air 02/07/18 07:42 61 16 134/68 96 Room Air 02/07/18 06:29 73 02/07/18 06:19 98 Room Air 02/07/18 06:19 36.7 68 18 144/79 98 Room Air Physical Exam: Constitutional:appearance nourished, healthy and normal Ears, Nose, Mouth and Throat: mucous membranes moist, no injection and skin normal, eyes normal Cardiovascular: normal S-1 and S-2 and regular rate and rhythm Respiratory: course breath sounds Musculoskeletal: no peripheral edema and good distal pulses Skin: no stigmata of neurocutaneous disease noted and normal and intact Eyes: extraocular muscles intact (EOMI) and pupils equal, round and reactive to light (PERRL), left eye ptosis (chronic) with left peripheral vision decreased NEUROLOGIC EXAMINATION: Mental status: Alert and interactive Oriented to full date and location Oriented to person Speech fluent with no evidence of aphasia Cranial Nerves smile eye brow raise symmetric Reflexes: Deep tendon reflexes were symmetrical and graded 2/5. Plantar responses were flexor. Sensory: intact to light touch and cool touch Coordination: finger to nose with no bi pass Gait/Stance: Posture lying in bed Motor: Negative for pronator drift of out stretched arms with eyes closed. Strength: biceps triceps hand domestic technician bilaterally 5/5, hip flex plantar patellar flex ext 5/ 5 bilaterally Laboratory Results Past 24 Hours: 02/07/18 06:26 02/07/18 06:26 Test 02/07/18 06:26 02/07/18 13:00 Red Blood Count 4.82 M/uL (4.7-6.1) Mean Corpuscular Volume 90.9 fL (80-100) Mean Corpuscular Hemoglobin 31.5 pg (25-34) Mean Corpuscular Hemoglobin Concent 34.7 g/dl (32-36) RDW Standard Deviation 42.9 fL (36.4-46.3) RDW Coefficient of Variation 13.0 % (11.5-14.5) Mean Platelet Volume 9.6 fL (7.4-10.4) Prothrombin Time 10.3 SECONDS (9.0-12.0) Prothromb Time International Ratio 1.0 (0.9-1.1) Activated Partial Thromboplast Time 25.9 SECONDS (21.0-31.0) Partial Thromboplastin Ratio 1.0 D-Dimer < 190 ug/L FEU (0-500) Anion Gap 9.0 mmol/L (3-11) Est Creatinine Clear Calc Drug Dose 88.8 ml/min Estimated GFR () 88.1 Estimated GFR (Non- 76.0 BUN/Creatinine Ratio 13.7 (10-20) Calcium Level 9.0 mg/dl (8.5-10.1) Total Bilirubin 0.4 mg/dl (0.2-1) Aspartate Amino Transf (AST/SGOT) 18 U/L (15-37) Alanine Aminotransferase (ALT/SGPT) 35 U/L (12-78) Alkaline Phosphatase 92 U/L (45-117) Total Protein 7.0 gm/dl (6.4-8.2) Albumin 3.7 gm/dl (3.4-5.0) Globulin 3.3 gm/dl (2.5-4.0) Albumin/Globulin Ratio 1.1 (0.9-2) Lipase 211 U/L (73-393) Valproic Acid (Depakene) Level 62 mcg/ml (50-100) Hepatitis C Antibody Screen NEG (NEG) Troponin I < 0.015 ng/ml (0-0.045) Imaging no neurologic imaging Impression 57 year old male with chest pain and chronic migraines with facial numbness and left hand tingling Plan 1. continue depakote 250 mg am and 500 mg pm 2. steroid taper predinsone 30 mg x 3 days, 20 mg x 3 days, 10 mg x 3 days then stop 3. no imaging needed from neurology perspective symptoms have been consistent and unchanged for 2 years. 4. cardiology stress test planned tomorrow 5. TTE -no ASD 6. will continue to follow I have seen and discussed above patient with Dr Carmella Mary, neurology Pt seen and examined. HE has had multiple prior similar presentations with GRAVES and L face or L face and arm numbness several with chest pain/stabbing which lasted days with neg imaging. 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 Will see if we can get him through this period of increased GRAVES without changing his prophylactic med as the dose in depakote was lowered bc of weight gain. JOSE Mary MD
[2018-02-07] MEDS: ENOXAPARIN 40 MG/0.4 ML SYR SC SCH (19:14)
[2018-02-07 20:57] VITALS: BP 176/85; PULSE 61; TEMP 36.3; O2SAT 91
[2018-02-07] MEDS ORDERED: DIVALPROEX 500 MG EXTENDED RELEASE TAB PO SCH (21:00)
[2018-02-07] MEDS ORDERED: PRAVASTATIN SOD 40 MG TAB PO SCH (21:00)
[2018-02-07] MEDS: KETOROLAC TROMETHAMINE 30 MG/ML VIAL IV PRN (23:24)
[2018-02-07 23:34] VITALS: BP 114/69; PULSE 56; TEMP 36.5; O2SAT 95
[2018-02-08] VITALS (14 sets, daily range): BP systolic 93–119; BP diastolic 54–84; PULSE 53–77; TEMP 36.5–36.8; O2SAT 92–96
[2018-02-08 06:15] LABS: HEMATOCRIT 44.1 % (42-52); MEAN CELL VOLUME 90.7 fL (80-100); MEAN CORPUSCULAR HEMOGLOBIN 30.9 pg (25-34); MEAN PLATELET VOLUME 9.8 fL (7.4-10.4); PLATELET COUNT 273 K/uL (130-400); RED CELL DISTRIBUTION WIDTH CV 12.6 % (11.5-14.5); RED CELL DISTRIBUTION WIDTH SD 42.3 fL (36.4-46.3); WHITE BLOOD COUNT 6.85 K/uL (4.8-10.8)
[2018-02-08 07:00] LABS: CALCIUM 9.3 mg/dl (8.5-10.1); CREATININE 0.97 mg/dl (0.60-1.40); POTASSIUM 4.4 mmol/L (3.5-5.1)
[2018-02-08 07:49] LABS: HEMOGLOBIN A1C 5.7 % (4.5-5.6)
[2018-02-08] MEDS ORDERED: DIVALPROEX 250 MG EXTENDED REL TAB PO SCH (09:00)
[2018-02-08] MEDS ORDERED: AMLODIPINE BESYLATE 5 MG TAB PO SCH (09:00)
[2018-02-08] MEDS ORDERED: MONTELUKAST SOD 10 MG TAB PO SCH (09:00)
[2018-02-08] MEDS ORDERED: MAGNESIUM OXIDE 400 MG TAB PO SCH (09:00)
[2018-02-08] MEDS ORDERED: ASPIRIN 81 MG ECTAB PO SCH (09:00)
[2018-02-08] MEDS ORDERED: PANTOprazole SOD 40 MG TAB PO SCH (10:00)
[2018-02-08] MEDS: KETOROLAC TROMETHAMINE 30 MG/ML VIAL IV PRN (10:22)
[2018-02-08] MEDS ORDERED: ATROPINE SULFATE 0.1 MG/ML 5ML SYR ONE ×2 (10:56→10:57)
[2018-02-08] MEDS ORDERED: METOPROLOL TARTRATE 1 MG/ML VIAL ONE ×2 (10:56)
[2018-02-08] MEDS ORDERED: DOBUTamine HCL 12.5 MG/ML 20 ML VIAL ONE (10:56)
--- NOTE | 2018-02-08 11:49 | Cardiology Follow-Up ---
Subjective General Date of Service: Feb 08, 2018. Chief Complaint: follow up chest pain Pt evaluation today including: conversation w/ patient, physical exam History of Present Illness The patient is a 57 year old male patient's chest pain resolved overnight last night. Serial troponin levels were normal. Repeat EKG this am is normal. Allergies Coded Allergies: Azithromycin (Verified Allergy, Intermediate, ITCHING, 02/07/18) Social History Smoking Status: Never Smoker Hx Tobacco Use In Past Year?: Yes Hx Alcohol Use - Type And Amou: No Hx Substance Use - Type And Am: Yes (CHEWS 1 CAN STUFF PER 2 DAYS) Problem List Medical Problems: (1) Paresthesia Status: Acute (2) Precordial chest pain Status: Acute Physical Exam Vital Signs Last Vital Signs Documentation Date Time Temp Pulse Resp B/P (MAP) Pulse Ox O2 Delivery O2 Flow Rate FiO2 02/08/18 08:02 Room Air 02/08/18 07:23 36.5 63 20 112/67 (82) 94 02/07/18 20:57 2.0 Physical Exam Constitutional: General Apperance: heathly-appearing Level of Distress: NAD Ambulation: ambulating normally Head: normocephalic ENMT: hearing grossly normal Lungs: Auscultation: no wheezing, no rales/crackles, no rhonchi Cardiovascular: Heart Auscultation: RRR, no murmurs Extremities: no edema Neurologic: Gait & Station: pertinent finding (no focal deficits ) Assessment and Plan Assessment and Plan Impression: Patient admitted with intermittent non exertional left sided chest pressure. Trop levels normal. Non specific T wave flattening in initial ER EKG, since resolved Patient had DSE this am with Equivocal results. 6/10 chest pressure induced at peak pharm stress, resolved after HR normalized post test. Mild equivocal ST changes on stress EKG. Normal stress echocardiogram images. Plan: Remain in hospital for definitive coronary angiography on Sunday. DC toradol pending cath. Prednisone is not ideal given coronary risk, but I feel it is necessary to prevent further migraine symptoms. Laboratory Results Last 24 Hours Test 02/07/18 13:00 02/07/18 18:38 02/08/18 05:51 Troponin I < 0.015 ng/ml < 0.015 ng/ml White Blood Count 6.85 K/uL Red Blood Count 4.86 M/uL Hemoglobin 15.0 g/dL Hematocrit 44.1 % Mean Corpuscular Volume 90.7 fL Mean Corpuscular Hemoglobin 30.9 pg Mean Corpuscular Hemoglobin Concent 34.0 g/dl RDW Standard Deviation 42.3 fL RDW Coefficient of Variation 12.6 % Platelet Count 273 K/uL Mean Platelet Volume 9.8 fL Sodium Level 137 mmol/L Potassium Level 4.4 mmol/L Chloride Level 105 mmol/L Carbon Dioxide Level 24 mmol/L Anion Gap 8.0 mmol/L Blood Urea Nitrogen 17 mg/dl Creatinine 0.97 mg/dl Est Creatinine Clear Calc Drug Dose 99.7 ml/min Estimated GFR () 101.4 Estimated GFR (Non- 87.5 BUN/Creatinine Ratio 17.8 Random Glucose 134 mg/dl Estimated Average Glucose 117 mg/dl Hemoglobin A1c 5.7 % Calcium Level 9.3 mg/dl Triglycerides Level 95 mg/dl Cholesterol Level 186 mg/dl HDL Cholesterol 44 mg/dl LDL Cholesterol, Calculated 123 mg/dl VLDL Cholesterol, Calculated 19 mg/dl Cholesterol/HDL Ratio 4.2
--- NOTE | 2018-02-08 12:30 | DOBUTAMINE ECHO ---
*NOTICE TO RECEIVING REPUBL[employer] AGENCY This information is strictly Confidential and protected under [place] law. [place] law prohibits you from making any further disclosure of this information unless further disclosure is expressly permitted by the written consent of the person to whom it pertains or is authorized by law. A general authorization for the release of medical or other information is not sufficient for this purpose. Hospital accepts no responsibility if the information is made available to any other person, INCLUDING THE PATIENT. Interpretation Summary * Name: PAULIE REY Study Date: 02/08/2018 11:06 AM BP: 91/68 mmHg * Patient Location[place] [facility] [place] HR: 75 * : 1960 (M/d/yyyy) Gender: Male Height: 70 in * Age: 57 yrs Ethnicity: [place] Weight: 202 lb * Ordering Physician: Kyung Stack * Performed By: Winsome Jeffries RDCS * * Reason For Study: Chest Pain * BSA: 2.1 m2 * -- Conclusions -- * Equivocal stress echocardiogram. * The resting echocardiographic images reveal normal wall motion, with appropriate augmentation of the left ventricle noted with pharmacologic stress. * Mild equivocal EKG changes were observed as described below. * The patient described a 6/10 intensity chest discomfort with peak pharmacologic stress that resolved in the post pharmacologic stress recovery interval when the heart rate had returned to the preprocedure baseline. * The patient was transferred back to the telemetry floor in stable condition with resolution of his chest discomfort. Procedure Details * DOBUTAMINE ECHO, CPT#46097 * A contrast injection of Definity was performed to improve assessment of LV function. * Contrast was injected into an intravenous site in the left arm. * One vial of Definity ultrasound contrast was diluted in normal saline to a total volume of 10 ml. A total of '5' ml of solution was administered during imaging. * Lot # [id number] of Definity utilized for procedure. * Expiration date . * The attending nurse who injected the contrast agent was Romelia Lopes RN. Left Ventricle * The left ventricle is normal in size. There is normal left ventricular wall thickness. The LV Ejection Fraction = 60-65%. Left ventricular systolic function is normal at rest. * Resting wall motion: Normal. Stress wall motion: Appropriate increase in Left ventricular systolic function and decrease in cavity size. No stress induced segmental wall motion abnormalities. Stress Parameters * Normal baseline electrocardiogram. * Equivocal 0.5-[address] segment depression is noted at peak pharmacologic stress. * The stress portion of this study was personally supervised by the undersigned interpreting physician. * Rest heart rate was '75' BPM. * Rest blood pressure was '91/68' * Maximum heart rate achieved was 144 bpm. * Maximum heart rate was 87 % of maximum age-predicted heart rate. * Maximum blood pressure was '174/56' * Maximum Dobutamine infusion rate was '40' mcg/kg/min. * A total of 0.5 mg of intravenous Atropine was used to supplement Dobutamine for heart rate response. * Dobutamine infusion was terminated due to achieving target heart rate * A total of 5 mg of IV Metoprolol was administered to reverse Dobutamine-induced tachycardia.
[2018-02-08] MEDS ORDERED: PERFLUTREN LIPID MICROSPHERE (DEFINITY) IV ONE (13:19)
--- NOTE | 2018-02-08 13:33 | Progress Note ---
Medicine Progress Note Date & Time of Visit: Feb 08, 2018 at 13:10. Subjective Pt was seen and examined Lying in bed with no distress Pt said that he continues to have the headache He said that he does not have any chest pain currently Denies any fever, palpitation, dizziness and palpitation Objective Last 8 Hrs Date Time Temp Pulse Resp B/P (MAP) Pulse Ox O2 Delivery O2 Flow Rate FiO2 02/08/18 12:51 36.6 77 16 101/60 (74) 92 Room Air 02/08/18 12:00 Room Air 02/08/18 08:02 Room Air 02/08/18 07:23 36.5 63 20 112/67 (82) 94 Room Air Physical Exam: General- No acute distress Head- atraumatic Eyes- PERRL, EOMI ENT- oropharynx clear Neck- supple, no JVD Lungs- No wheezing Heart- regular rhythm; no murmur Abdomen- normal bowel sounds, soft Extremities- no calf tenderness Neuro- alert, oriented x 3; PERRL, EOMI Skin- warm & dry Laboratory Results: Last 24 Hours Test 02/07/18 18:38 02/08/18 05:51 Troponin I < 0.015 ng/ml White Blood Count 6.85 K/uL Red Blood Count 4.86 M/uL Hemoglobin 15.0 g/dL Hematocrit 44.1 % Mean Corpuscular Volume 90.7 fL Mean Corpuscular Hemoglobin 30.9 pg Mean Corpuscular Hemoglobin Concent 34.0 g/dl RDW Standard Deviation 42.3 fL RDW Coefficient of Variation 12.6 % Platelet Count 273 K/uL Mean Platelet Volume 9.8 fL Sodium Level 137 mmol/L Potassium Level 4.4 mmol/L Chloride Level 105 mmol/L Carbon Dioxide Level 24 mmol/L Anion Gap 8.0 mmol/L Blood Urea Nitrogen 17 mg/dl Creatinine 0.97 mg/dl Est Creatinine Clear Calc Drug Dose 99.7 ml/min Estimated GFR () 101.4 Estimated GFR (Non- 87.5 BUN/Creatinine Ratio 17.8 Random Glucose 134 mg/dl Estimated Average Glucose 117 mg/dl Hemoglobin A1c 5.7 % Calcium Level 9.3 mg/dl Triglycerides Level 95 mg/dl Cholesterol Level 186 mg/dl HDL Cholesterol 44 mg/dl LDL Cholesterol, Calculated 123 mg/dl VLDL Cholesterol, Calculated 19 mg/dl Cholesterol/HDL Ratio 4.2 Assessment & Plan CHEST PAIN R/O ACS Need to R/O ACS Tropx3 negative EKG on admission showed Non specific T wave flattening in initial, resolved in repeat EKG today Cardiology on board Dobutamine stress echo done Chest pressure 6/10 at peak pharm stress Mild equivocal ST changes on stress EKG. Currently no chest pain Continue aspirin, statin and metoprolol Cardiac cath done today revealed angiographically normal coronary arteries. Continue monitor in tele ECHO showed * -- Conclusions -- * Left ventricular systolic function is normal. * Ejection Fraction = 60-65%. * The left ventricular wall motion is normal. * Pulse wave TDI of the anterior and posterior mitral annulas demonstrates normal LV relaxation * No significant valvular pathology. MIGRAINE GRAVES Hx chronic migraine GRAVES Has been follow with Neuro Starting on prednisone taper Continue depakote/mag and riboflavin D/C toradol DYSLIPIDEMIA Lipid panel: chol 186 HDL: 44 LDL: 123, Tri Continue statin GERD continue Protonix ASTHMA No SOB or wheezing. Stable continue albuterol inhaler prn, continue Singulair DVT Prophylaxis Lovenox SQ Disposition Continue monitor in tele Cardiac cath on Sunday Current Inpatient Medications: Current Inpatient Medications Medications (Trade) Dose Ordered Sig/Fernando Route Start Time Stop Time Status Last Admin Dose Admin Enoxaparin Sodium (Lovenox Inj) 40 mg Q24H SC 02/07/18 18:00 03/09/18 17:59 02/07/18 19:14 40 MG Acetaminophen (Tylenol Tab) 650 mg Q4H PRN PO 02/07/18 11:00 03/09/18 10:59 02/07/18 19:54 650 MG Al Hydrox/Mg Hydrox/Simethicone (Maalox Max Susp) 15 ml Q4H PRN PO 02/07/18 11:00 03/09/18 10:59 Magnesium Hydroxide (Milk Of Magnesia Susp) 30 ml Q12H PRN PO 02/07/18 11:00 03/09/18 10:59 Ondansetron HCl (Zofran Inj) 4 mg Q6H PRN IV 02/07/18 11:00 03/09/18 10:59 Nitroglycerin (Nitrostat Tab) 0.4 mg UD PRN SL 02/07/18 11:00 03/09/18 10:59 Albuterol (Ventolin Hfa Inhaler) 2 puffs Q4H PRN INH 02/07/18 11:00 03/09/18 10:59 Amlodipine Besylate (Norvasc Tab) 2.5 mg QAM PO 02/08/18 09:00 03/10/18 08:59 02/08/18 07:21 2.5 MG Aspirin (Ecotrin Tab) 81 mg QAM PO 02/08/18 09:00 03/10/18 08:59 02/08/18 07:21 81 MG Divalproex Sodium (Depakote Extended Rel Tab) 250 mg DAILY PO 02/08/18 09:00 03/10/18 08:59 02/08/18 07:18 250 MG Divalproex Sodium (Depakote Extended Rel Tab) 500 mg HS PO 02/07/18 21:00 03/09/18 20:59 02/07/18 20:23 500 MG Magnesium Oxide (Mag-Ox Tab) 400 mg QAM PO 02/08/18 09:00 03/10/18 08:59 02/08/18 07:18 400 MG Montelukast Sodium (Singulair Tab) 10 mg QAM PO 02/08/18 09:00 03/10/18 08:59 02/08/18 07:18 10 MG Pantoprazole Sodium (Protonix Tab) 40 mg DAILY@1000 PO 02/08/18 10:00 03/10/18 09:59 02/08/18 10:01 40 MG Pravastatin Sodium (Pravachol Tab) 40 mg HS PO 02/07/18 21:00 03/09/18 20:59 02/07/18 20:23 40 MG Miscellaneous Information (Order Awaiting Action) 1 ea QS N/A 02/07/18 16:00 03/09/18 15:59 Morphine Sulfate (MoRPHine SULFATE INJ) 2 mg Q4 PRN IV 02/07/18 11:45 02/21/18 10:59 Prednisone (PredniSONE TAB) 30 mg DAILY PO 02/07/18 17:15 02/09/18 09:01 02/08/18 07:18 30 MG Prednisone (PredniSONE TAB) 20 mg DAILY PO 02/10/18 09:00 02/12/18 09:01 Prednisone (PredniSONE TAB) 10 mg DAILY PO 02/13/18 09:00 02/15/18 09:01
--- NOTE | 2018-02-08 14:15 | Cardiology Progress Note ---
Cardiology Progress Note Date of Service Feb 08, 2018. Cardiology Progress Note Patient had light lunch. There are currently several patient's of higher acuity on the cardiac cath schedule. Will hold further food today, and attempt to add case in as schedule permits today. Patient agreeable.
[2018-02-08] MEDS ORDERED: SODIUM CHLORIDE 0.9% 1000ML 1,000 ML IV SCH ×2 (14:30→16:02)
[2018-02-08] MEDS ORDERED: ASPIRIN 81 MG CHEW PO ONE (14:45)
[2018-02-08] MEDS ORDERED: MIDAZOLAM HCL 1 MG/ML 2ML VIAL ONE (15:17)
[2018-02-08] MEDS ORDERED: NITROGLYCERIN/D5W 100MCG/ML 20ML SYR ONE (15:18)
[2018-02-08] MEDS ORDERED: FENTANYL CITRATE INJ 50 MCG/1 ML 2 ML VIAL ONE (15:18)
[2018-02-08] MEDS ORDERED: NiCARDipine HCL INJ 2.5 MG/ML 10 ML AMP ONE (15:18)
[2018-02-08] MEDS ORDERED: HEPARIN SOD (PORCINE) 1000 UNIT/ML 10 ML VIAL ONE (15:18)
--- NOTE | 2018-02-08 16:07 | Neurology Progress Notes ---
Neurology Progress Note Date of Service Feb 08, 2018. Jose Angel Cortes is a 57 year old male with PMH migraine headache follows with Dr. Curry , neurocardiogenic syncope diagnosed by tilt table, dyslipidemia, GERD, asthma, positional sleep apnea presented to ER with chief complaint of chest pain. His migraine headache with associated left facial and left arm tingling which is usual for him. He had a migraine headache approximately once a week, previously was getting several times a week prior to being placed on Depakote. He started having anterior chest pain greater to the left side described as sharp pain. He went to work and was walking when he started with chest pain and still has ongoing migraine headache with left facial tingling. He had a similar episode of chest pain and migraine headache in September 2016 and was admitted at that time. Had stress echo at that time EF: 55-60%, no inducible ischemia, no structural abnormalities. At that point in time patient had increased headache with nitroglycerin. He reports received 1 dose of morphine which relieved both chest pain and headache. Today he thinks the headache is a bit better. He had a stress test this am which he failed and he is scheduled to have a cardiac cath sometime today. denies SOB, abdominal pain, swallowing issues, falls, vision changes, tingling in hands, numbness of face, and headache. Objective Date Time Temp Pulse Resp B/P (MAP) Pulse Ox O2 Delivery O2 Flow Rate FiO2 02/08/18 12:51 36.6 77 16 101/60 (74) 92 Room Air 02/08/18 12:00 Room Air 02/08/18 08:02 Room Air 02/08/18 07:23 36.5 63 20 112/67 (82) 94 Room Air 02/08/18 04:01 Room Air 02/08/18 03:54 36.6 60 18 93/54 (67) 93 Room Air 02/08/18 00:04 Room Air 02/07/18 23:34 36.5 56 18 114/69 (84) 95 Room Air 02/07/18 20:57 36.3 61 18 176/85 (115) 91 Nasal Cannula 2.0 02/07/18 20:00 Nasal Cannula 2.0 02/07/18 16:00 Nasal Cannula 2.0 02/07/18 15:36 36.7 57 20 101/61 (74) 96 Room Air Last 24 Hours Test 02/07/18 18:38 02/08/18 05:51 Troponin I < 0.015 ng/ml White Blood Count 6.85 K/uL Red Blood Count 4.86 M/uL Hemoglobin 15.0 g/dL Hematocrit 44.1 % Mean Corpuscular Volume 90.7 fL Mean Corpuscular Hemoglobin 30.9 pg Mean Corpuscular Hemoglobin Concent 34.0 g/dl RDW Standard Deviation 42.3 fL RDW Coefficient of Variation 12.6 % Platelet Count 273 K/uL Mean Platelet Volume 9.8 fL Sodium Level 137 mmol/L Potassium Level 4.4 mmol/L Chloride Level 105 mmol/L Carbon Dioxide Level 24 mmol/L Anion Gap 8.0 mmol/L Blood Urea Nitrogen 17 mg/dl Creatinine 0.97 mg/dl Est Creatinine Clear Calc Drug Dose 99.7 ml/min Estimated GFR () 101.4 Estimated GFR (Non- 87.5 BUN/Creatinine Ratio 17.8 Random Glucose 134 mg/dl Estimated Average Glucose 117 mg/dl Hemoglobin A1c 5.7 % Calcium Level 9.3 mg/dl Triglycerides Level 95 mg/dl Cholesterol Level 186 mg/dl HDL Cholesterol 44 mg/dl LDL Cholesterol, Calculated 123 mg/dl VLDL Cholesterol, Calculated 19 mg/dl Cholesterol/HDL Ratio 4.2 Imaging: stress test -pain with stress Exam: Physical Exam: Constitutional: appearance nourished, healthy and normal Ears, Nose, Mouth and Throat: mucous membranes moist, no injection and skin normal, eyes normal Cardiovascular: normal S-1 and S-2 and regular rate and rhythm Respiratory: clear to auscultation (CTA) and no rales, rhonchi or wheeze Musculoskeletal: no peripheral edema Skin: no stigmata of neurocutaneous disease noted and normal and intact Eyes: extraocular muscles intact (EOMI) difficulty far left vision ptosis left eye NEUROLOGIC EXAMINATION: Mental status: Alert and interactive Oriented to full date and location Oriented to person Speech fluent with no evidence of aphasia Cranial Nerves smile eye brow raise symmetric Coordination: finger to nose no bi pass Gait/Stance: Posture lying in bed Motor: Negative for pronator drift of out stretched arms with eyes closed. Strength: biceps triceps hand stoner out 5/5 bilaterally, hip flex plantar flex ext bilaterally 5/5 Current Inpatient Medications Medications (Trade) Dose Ordered Sig/Fernando Route Start Time Stop Time Status Last Admin Dose Admin Enoxaparin Sodium (Lovenox Inj) 40 mg Q24H SC 02/07/18 18:00 03/09/18 17:59 02/07/18 19:14 40 MG Acetaminophen (Tylenol Tab) 650 mg Q4H PRN PO 02/07/18 11:00 03/09/18 10:59 02/07/18 19:54 650 MG Al Hydrox/Mg Hydrox/Simethicone (Maalox Max Susp) 15 ml Q4H PRN PO 02/07/18 11:00 03/09/18 10:59 Magnesium Hydroxide (Milk Of Magnesia Susp) 30 ml Q12H PRN PO 02/07/18 11:00 03/09/18 10:59 Ondansetron HCl (Zofran Inj) 4 mg Q6H PRN IV 02/07/18 11:00 03/09/18 10:59 Nitroglycerin (Nitrostat Tab) 0.4 mg UD PRN SL 02/07/18 11:00 03/09/18 10:59 Albuterol (Ventolin Hfa Inhaler) 2 puffs Q4H PRN INH 02/07/18 11:00 03/09/18 10:59 Amlodipine Besylate (Norvasc Tab) 2.5 mg QAM PO 02/08/18 09:00 03/10/18 08:59 02/08/18 07:21 2.5 MG Aspirin (Ecotrin Tab) 81 mg QAM PO 02/08/18 09:00 03/10/18 08:59 02/08/18 07:21 81 MG Divalproex Sodium (Depakote Extended Rel Tab) 250 mg DAILY PO 02/08/18 09:00 03/10/18 08:59 02/08/18 07:18 250 MG Divalproex Sodium (Depakote Extended Rel Tab) 500 mg HS PO 02/07/18 21:00 03/09/18 20:59 02/07/18 20:23 500 MG Magnesium Oxide (Mag-Ox Tab) 400 mg QAM PO 02/08/18 09:00 03/10/18 08:59 02/08/18 07:18 400 MG Montelukast Sodium (Singulair Tab) 10 mg QAM PO 02/08/18 09:00 03/10/18 08:59 02/08/18 07:18 10 MG Pantoprazole Sodium (Protonix Tab) 40 mg DAILY@1000 PO 02/08/18 10:00 03/10/18 09:59 02/08/18 10:01 40 MG Pravastatin Sodium (Pravachol Tab) 40 mg HS PO 02/07/18 21:00 03/09/18 20:59 02/07/18 20:23 40 MG Miscellaneous Information (Order Awaiting Action) 1 ea QS N/A 02/07/18 16:00 03/09/18 15:59 Morphine Sulfate (MoRPHine SULFATE INJ) 2 mg Q4 PRN IV 02/07/18 11:45 02/21/18 10:59 Prednisone (PredniSONE TAB) 30 mg DAILY PO 02/07/18 17:15 02/09/18 09:01 02/08/18 07:18 30 MG Prednisone (PredniSONE TAB) 20 mg DAILY PO 02/10/18 09:00 02/12/18 09:01 Prednisone (PredniSONE TAB) 10 mg DAILY PO 02/13/18 09:00 02/15/18 09:01 Sodium Chloride 1,000 ml @ 75 mls/hr [id number] IV 02/08/18 14:30 03/10/18 14:29 02/08/18 14:47 75 MLS/HR Impression 57 year old male with chest pain and chronic migraines with facial numbness and left hand tingling Plan 1. continue depakote 250 mg am and 500 mg pm 2. steroid taper predinsone 30 mg x 3 days, 20 mg x 3 days, 10 mg x 3 days then stop 3. no imaging needed from neurology perspective symptoms have been consistent and unchanged for 2 years. 4. cardiology stress test done and now awaiting cardiac cath 5. TTE -no ASD 6. will see in our office 3-[address] Fer Curry, or Carmella Ramsey PAC schedule. I have seen and discussed above patient with Dr Carmella Mary, neurology Pt feeling somewhat better today. Cardiac cath neg. Neurologic exam nonfocal. Mult presentation with headache and L facial numbness with prior neg imaging x 2. Continue pred taper, no change in depakote, fu with Dr Curry in office. JOSE Mary MD
--- NOTE | 2018-02-08 16:14 | Cardiac Catheterization ---
Procedure Note Procedure Date Feb 08, 2018. Pre-Procedure Diagnosis Angina AUC Score 7 Post-Procedure Diagnosis Normal Coronary Arteries, Normal Intracardiac Pressures Procedure(s) Performed Coronary Angiography, Left Heart Cath Stapler Coil Unit [employer] Counter Representative(s) Bebo Estimated Blood Loss 10 Medication(s) Fentanyl, Heparin, Nicardipine, Versed, Lidocaine 1% Summary of Findings Indication: Suspected ACS Access: 5 Fr right radial artery Catheters: [place] Findings: LM - angiographically normal LAD - distal luminal irregularities as tapers to the apex otherwise no significant disease Circumflex - angiographically normal RCA - mid segment luminal regularities LVEDP - 11 Arterial Closure: TR band Summary: 1. Angiographically normal coronary arteries 2. Normal intracardiac filling pressure Recommendations: Continued ASCVD risk factor modification per Dr. Johnson Hemodynamics Rest Ao: 82/51/65 Final Ao: 73/34/47 LV: 75/11 Recommendations Medical therapy and/or Counseling Specimens None Radiation Exposure (mGy) 792 Contrast (mls) 40 Fluids (cc crystalloids) 80 Drains None Anesthesia Moderate Procedural Complication(s) None Disposition PCU ACC Data Cardiac Status Clinical evaluation leading to the procedure CAD Presntation: Unstable angina Anginal Classification: CCS III Heart Failure: No, NYHA Class: CCS I Cardiogenic Shock w/in 24Hrs: No Cardiac Arrest w/in 24Hrs: No Imaging studies past 6 months: Yes Stress studies past 6 months: No Diagnostic Status: Elective Closure Device Percutaneous Entry Location: Radial Closure Device: Radial Band Recommendations: Medical therapy and/or Counseling Intraprocedure Events Significant Dissection: No Perforation: No
--- NOTE | 2018-02-08 16:14 | Pre Sedation Assessment ---
Pre Sedation Assessment General Date of Sedation: Feb 08, 2018. Vital Signs Past 12 Hours Date Time Temp Pulse Resp B/P (MAP) Pulse Ox O2 Delivery O2 Flow Rate FiO2 02/08/18 15:47 87 18 124/74 (91) 96 02/08/18 12:51 36.6 77 16 101/60 (74) 92 Room Air 02/08/18 12:00 Room Air 02/08/18 08:02 Room Air 02/08/18 07:23 36.5 63 20 112/67 (82) 94 Room Air 02/08/18 04:01 Room Air Review Cardiovascular: regular rate, rhythm, no edema Lungs: chest non-tender, lungs clear Pre-Sedation Airway Assessment Smoking Status: Never Smoker Hx of Sleep Apnea: Yes Hx of difficult intubation: Yes Short Thick Neck: Yes Thyro-mental Distance: > 3 Finger Breadths Oral Cavity: WNL Mallampati Classification: Class II ASA Classification: Class II Procedure Planning Contraindications for Sedation: None Current Medications Reviewed: Yes Notes The planned sedation has been discussed with the patient. Informed Consent was obtained. I have identified the patient, determined the appropriateness of sedation and have assessed the patient immediately prior to the procedure. All medicine(s) and interventions are by my order.
--- NOTE | 2018-02-08 16:14 | Cardiology Progress Note ---
Cardiology Progress Note Date of Service Feb 08, 2018. Cardiology Progress Note Postprocedure follow-up note: Patient underwent cardiac catheterization performed by Dr. Bryan of interventional cardiology. The cardiac catheterization revealed angiographically normal coronary arteries. Chest discomfort is considered to be noncardiac, either musculoskeletal in etiology or atypical manifestation of his migraine syndrome. Would recommend continuing the prednisone taper as previously ordered by neurology. Patient is stable for discharge when he finishes his post cardiac catheterization recovery progress with no bleeding after removal of his radial arm band. Plan discussed with Dr. Mcgarry. Cath results discussed with patient's spouse. Post cath discharge patient discharge instructions as below. ACTIVITY RECOMMENDATIONS: Excess manipulation of the wrist should be avoided for the next 24-48 hours. * No lifting over 2 pounds (approximately a 1/2 gallon of milk) with the utilized arm for 24 hours. * No strenuous activity such as bowling or tennis for 3 days. * Keep the site of the procedure covered with a bandage for 24 hours. *You may shower the day after the procedure. Do not take a tub bath or submerge the puncture site in water for the next 3 days. *Do not operate any motorized equipment for 3 days. SPECIAL CARE INSTRUCTIONS: The site may be slightly bruised and sore following your procedure. Should any of the following occur, contact the Dr. who performed your procedure. 1. Redness/inflammation, swelling, chills, or fever, or colored drainage at procedure site within 3-7 days after your procedure. 2. Coldness, discoloration, ongoing numbness, severe pain, or swelling. Expect mild tingling of hand and tenderness at the puncture site for up to three days. If this persists beyond three days, or other symptoms develop, notify the Dr. who performed your procedure. BLEEDING: If the procedure site on your wrist begins to bleed, do not panic 1. Place 1 or 2 fingers firmly just slightly above the insertion site to stop the bleeding. You may be able to feel your pulse as you hold pressure. 2. Lift your finger after 5 minutes to see if the bleeding has stopped. 3. Once the bleeding has stopped, gently wipe the wrist area clean with a bandage. * If the bleeding from your wrist does not stop after 10 minutes, or if there is a large amount of bleeding or spurting, call 911 (do not drive yourself to the hospital). SKIN IRRITATION: * You may experience some redness and/or swelling in the area where radiation was administered. If any skin irritation occurs, please contact your family physician. FOLLOW UP VISIT: Keep any scheduled doctor appointments.
--- NOTE | 2018-02-08 16:14 | Post Sedation Assessment ---
Post Sedation Assessment General Date of Sedation Feb 08, 2018. Vital Signs: Vital Signs Past 12 Hours Date Time Temp Pulse Resp B/P (MAP) Pulse Ox O2 Delivery O2 Flow Rate FiO2 02/08/18 15:47 87 18 124/74 (91) 96 02/08/18 12:51 36.6 77 16 101/60 (74) 92 Room Air 02/08/18 12:00 Room Air 02/08/18 08:02 Room Air 02/08/18 07:23 36.5 63 20 112/67 (82) 94 Room Air 02/08/18 04:01 Room Air Post Procedure Recovery Score Activity: (2) Moves 4 extremities * Respiration: (2) Deep breath/cough Circulation: (2) +/-20% PreAnes Value Consciousness: (2) Fully Awake Oxygen Saturation: (2) > 92% On Room Air Post Anesthesia Score: 10 Discharge Sedation Level of Care: Fast Track Phase II Post Sedation Plan On clinical assessment, the patient appears to have tolerated the sedation without complications. Patient is recovering as anticipated. Patient will continue to be monitored by nursing and may be discharged when sedation discharge criteria are met per below protocol. Upon Completions of procedure and additional 15 minutes continue every 5 minute vital signs and the P.A.R. score; then discharge to a Phase I or Fast Track to Phase II per the following guidelines: * Discharge Patient to appropriate Phase II area if PAR is 8 or greater or return to pre- procedure baseline. The post - procedure orders will be as directed. * If PAR score is less than 8 or not return to pre-procedure baseline then patient will follow Phase I monitoring till PAR is reached for Phase II. The Phase I may be done in procedure room or may call to secure a Phase I area. * If naloxone or flumazenil are used for reversal, hold in Phase I for an additional 60 -120 minutes before discharge to Phase II. Please call the Sedation Physician to re-evaluate and complete post-note for discharge to Phase II area. Do NOT discharge from procedure sedation or Phase 1 until post- sedation evaluation note is complete by procedure /sedation MD Sedation Discharge Instructions to be given to the patient at discharge to home.
[2018-02-08] MEDS: ENOXAPARIN 40 MG/0.4 ML SYR SC SCH (18:40)
[2018-02-08] MEDS ORDERED: PRD10 PO (19:44)
--- NOTE | 2018-02-08 19:49 | Discharge Instructions ---
Discharge Instructions Date of Service Feb 08, 2018. Admission Reason for Admission: Chest Pain Discharge Discharge Diagnosis / Problem: Chest pain, Migriane Headache Discharge Goals Goal(s): Decrease discomfort, Improve function, Improve disease control Activity Recommendations Activity Limitations: resume your previous activity (as tolerated) . Instructions / Follow-Up Instructions / Follow-Up Please follow up with your primary care provider within 1 week (Please call to schedule for the appointment) Follow with up with your neurology Dr. Curry in 3-4 weeks (Please call to schedule for the appointment) Continue prednisone taper ( 30mg for 1 day, then 20mg for 3 days, then 10mg for 3days and stop) Post cath discharge patient discharge instructions as below. ACTIVITY RECOMMENDATIONS: Excess manipulation of the wrist should be avoided for the next 24-48 hours. * No lifting over 2 pounds (approximately a 1/2 gallon of milk) with the utilized arm for 24 hours. * No strenuous activity such as bowling or tennis for 3 days. * Keep the site of the procedure covered with a bandage for 24 hours. *You may shower the day after the procedure. Do not take a tub bath or submerge the puncture site in water for the next 3 days. *Do not operate any motorized equipment for 3 days. SPECIAL CARE INSTRUCTIONS: The site may be slightly bruised and sore following your procedure. Should any of the following occur, contact the Dr. who performed your procedure. 1. Redness/inflammation, swelling, chills, or fever, or colored drainage at procedure site within 3-7 days after your procedure. 2. Coldness, discoloration, ongoing numbness, severe pain, or swelling. Expect mild tingling of hand and tenderness at the puncture site for up to three days. If this persists beyond three days, or other symptoms develop, notify the Dr. who performed your procedure. BLEEDING: If the procedure site on your wrist begins to bleed, do not panic 1. Place 1 or 2 fingers firmly just slightly above the insertion site to stop the bleeding. You may be able to feel your pulse as you hold pressure. 2. Lift your finger after 5 minutes to see if the bleeding has stopped. 3. Once the bleeding has stopped, gently wipe the wrist area clean with a bandage. * If the bleeding from your wrist does not stop after 10 minutes, or if there is a large amount of bleeding or spurting, call 911 (do not drive yourself to the hospital). SKIN IRRITATION: * You may experience some redness and/or swelling in the area where radiation was administered. If any skin irritation occurs, please contact your family physician. Current Hospital Diet Patient's current hospital diet: AHA Diet (Heart Healthy) Discharge Diet Recommended Diet: AHA Diet (Heart Healthy) Procedures Procedures Performed: Cardiac cath Pending Studies Studies pending at discharge: no Laboratory Results Hemoglobin A1c Test 02/08/18 05:51 Range/Units Estimated Average Glucose 117 mg/dl Hemoglobin A1c 5.7 H 4.5-5.6 % Lipid Panel Test 02/08/18 05:51 Range/Units Triglycerides Level 95 0-150 mg/dl Cholesterol Level 186 0-200 mg/dl HDL Cholesterol 44 mg/dl Cholesterol/HDL Ratio 4.2 LDL Cholesterol, Calculated 123 mg/dl Medical Emergencies . Who to Call and When: Medical Emergencies: If at any time you feel your situation is an emergency, please call 911 immediately. . Non-Emergent Contact Non-Emergency issues call your: Primary Care Provider, Neurologist Call Non-Emergent contact if: you have any medication questions . . "Provider Documentation" section prepared by Kyung Stack. .
--- NOTE | 2018-02-11 07:59 | Discharge Summary ---
Discharge Summary Date of Service Feb 11, 2018. Discharge Summary Admission Date: Feb 07, 2018 at 10:51 Discharge Date: Feb 08, 2018 Discharge Disposition: Home Principal Diagnosis: CHEST PAIN Secondary Diagnoses/Problems: MIGRAINE GRAVES DYSLIPIDEMIA ASTHMA GERD Procedures: Post-Procedure Diagnosis Normal Coronary Arteries, Normal Intracardiac Pressures Procedure(s) Performed Coronary Angiography, Left Heart Cath Industrial Technologist Irvin Manager Drug(s) [place] Estimated Blood Loss 10 Medication(s) Fentanyl, Heparin, Nicardipine, Versed, Lidocaine 1% Summary of Findings Indication: Suspected ACS Access: 5 Fr right radial artery Catheters: [place] Findings: LM - angiographically normal LAD - distal luminal irregularities as tapers to the apex otherwise no significant disease Circumflex - angiographically normal RCA - mid segment luminal regularities LVEDP - 11 Arterial Closure: TR band Summary: 1. Angiographically normal coronary arteries 2. Normal intracardiac filling pressure Recommendations: Continued ASCVD risk factor modification per Dr. Johnson ECHO Interpretation Summary * Name: PAULIE REY Study Date: 02/08/2018 11:06 AM BP: 91/68 mmHg * Patient Location: [facility] HR: 75 * : 1960 (M/d/yyyy) Gender: Male Height: 70 in * Age: 57 yrs Ethnicity: [place] Weight: 202 lb * Ordering Physician: Kyung Stack * Performed By: Winsome Jeffries RDCS * * Reason For Study: Chest Pain * BSA: 2.1 m2 * -- Conclusions -- * Equivocal stress echocardiogram. * The resting echocardiographic images reveal normal wall motion, with appropriate augmentation of the left ventricle noted with pharmacologic stress. * Mild equivocal EKG changes were observed as described below. * The patient described a 6/10 intensity chest discomfort with peak pharmacologic stress that resolved in the post pharmacologic stress recovery interval when the heart rate had returned to the preprocedure baseline. * The patient was transferred back to the telemetry floor in stable condition with resolution of his chest discomfort. Procedure Details * DOBUTAMINE ECHO, CPT#21238 * A contrast injection of Definity was performed to improve assessment of LV function. * Contrast was injected into an intravenous site in the left arm. * One vial of Definity ultrasound contrast was diluted in normal saline to a total volume of 10 ml. A total of '5' ml of solution was administered during imaging. * Lot # [id number] of Definity utilized for procedure. * Expiration date . * The attending nurse who injected the contrast agent was Romelia Lopes RN. Left Ventricle * The left ventricle is normal in size. There is normal left ventricular wall thickness. The LV Ejection Fraction = 60-65%. Left ventricular systolic function is normal at rest. * Resting wall motion: Normal. Stress wall motion: Appropriate increase in Left ventricular systolic function and decrease in cavity size. No stress induced segmental wall motion abnormalities. Stress Parameters * Normal baseline electrocardiogram. * Equivocal 0.5-[address] segment depression is noted at peak pharmacologic stress. * The stress portion of this study was personally supervised by the undersigned interpreting physician. * Rest heart rate was '75' BPM. * Rest blood pressure was '91/68' * Maximum heart rate achieved was 144 bpm. * Maximum heart rate was 87 % of maximum age-predicted heart rate. * Maximum blood pressure was '174/56' * Maximum Dobutamine infusion rate was '40' mcg/kg/min. * A total of 0.5 mg of intravenous Atropine was used to supplement Dobutamine for heart rate response. * Dobutamine infusion was terminated due to achieving target heart rate * A total of 5 mg of IV Metoprolol was administered to reverse Dobutamine- induced tachycardia. Consultations: Cardio Medication Reconciliation New Medications: Prednisone (Prednisone) 10 Mg Tab 10 MG PO UD for 7 Days, TAB Take 3 tabs for 1 day, then 2 tabs for 3 days, then 1 tab for 3 days, then stop Continued Medications: Acetaminophen (Acetaminophen Extra Stren) 500 Mg Tab 1000 MG PO Q8 PRN for Pain or Fever Albuterol (Proair Hfa) Aers 2 PUFFS INH Q4H PRN for Asthma Symptoms Amlodipine Besylate (Norvasc) 5 Mg Tab 2.5 MG PO QAM Aspirin (Aspirin Ec) 81 Mg Tab 81 MG PO QAM Divalproex Sodium (Depakote Er) 250 Mg Tab 1 TAB PO QAM 1 tab po in AM Divalproex Sodium (Depakote Er) 250 Mg Tab 2 TAB PO HS Magnesium Oxide (Mag-Ox) 400 Mg Tab 400 MG PO QAM Montelukast Sodium (Singulair) 10 Mg Tab 10 MG PO QAM Pantoprazole (Protonix) 40 Mg Tab 40 MG PO 1000 Pravastatin Sodium (Pravastatin Sodium) 40 Mg Tab 40 MG PO HS Riboflavin (Vitamin B-2) 100 Mg Tab 100 MG PO QAM Admission Information HPI (per Admitting provider): Pt is 57 y/o M with PMH migraine headache, migraine seizures follows with Dr. Curry, neurocardiogenic syncope diagnosed by tilt table, dyslipidemia, GERD, asthma, positional sleep apnea presented to ER with chief complaint of chest pain. Patient reports yesterday started with migraine headache with associated left facial and left arm tingling. He reports this is his normal presentation of migraine headaches. He reports eating migraine headache approximately once a week, previously was getting several times a week prior to being placed on Depakote. Patient states last evening prior to falling asleep he started with anterior chest pain greater to the left side described as sharp pain. Reports was able to fall asleep and this morning awoke without any chest pain. He was at work this morning walking when he started with chest pain again. [place] a little nauseated. He reports he still has migraine headache with left facial tingling. Patient denies heavy lifting or injury to chest. Denies recent illness, shortness of breath, palpitations, recent dizziness or syncope. Denies fever/chills, diaphoresis, V/D/C, vision changes, neck pain, SOB, orthopnea, cough, sore throat, choking, otalgia, rhinorrhea, abdominal pain, extremity weakness, extremity edema, rashes, urinary symptoms. Patient with history of similar presentation of chest pain and migraine headache in September 2016 and was admitted at that time. Had stress echo at that time EF: 55-60%, no inducible ischemia, no structural abnormalities. At that point in time patient had increased headache with nitroglycerin. He reports received 1 dose of morphine which relieved both chest pain and headache. In the ER patient given aspirin for chest pain and 1 g Tylenol for headache. Initial troponin negative, EKG nonspecific ST wave changes. Negative d-dimer. Industrial Technologist-Dr. Johnson consulted. Second troponin II hours later was negative. Initial plan was to do stress test this morning however patient complains of continued intermittent chest pain. Dr. Johnson ordered resting echo. Physical Exam (per Admitting): General Appearance: WD/WN, no apparent distress Head: normocephalic, atraumatic Eyes: normal inspection, PERRL, EOMI, sclerae normal ENT: hearing grossly normal, pharynx normal, + pertinent finding (mucous membranes moist) Neck: supple, no JVD, trachea midline Respiratory/Chest: lungs clear, normal breath sounds, no respiratory distress, + pertinent finding (mild tenderness to palpation left chest) Cardiovascular: regular rate, rhythm, no murmur, normal peripheral pulses Abdomen/GI: normal bowel sounds, non tender, soft Extremities/Musculoskelatal: normal inspection, no calf tenderness, normal capillary refill, no pedal edema, normal range of motion, non-tender Neurologic/Psych: no motor/sensory deficits, alert, normal mood/affect, oriented x 3 Skin: normal color, warm/dry, no rash Hospital Course CHEST PAIN Need to R/O ACS Tropx3 negative EKG on admission showed Non specific T wave flattening in initial, resolved in repeat EKG today Cardiology on board Dobutamine stress echo done Chest pressure 6/10 at peak pharm stress Mild equivocal ST changes on stress EKG. Currently no chest pain Continue aspirin, statin and metoprolol Cardiac cath done today revealed angiographically normal coronary arteries. Continue monitor in tele ECHO showed * -- Conclusions -- * Left ventricular systolic function is normal. * Ejection Fraction = 60-65%. * The left ventricular wall motion is normal. * Pulse wave TDI of the anterior and posterior mitral annulas demonstrates normal LV relaxation * No significant valvular pathology. MIGRAINE GRAVES Hx chronic migraine GRAVES Has been follow with Neuro Starting on prednisone taper Continue depakote/mag and riboflavin D/C toradol DYSLIPIDEMIA Lipid panel: chol 186 HDL: 44 LDL: 123, Tri Continue statin GERD continue Protonix ASTHMA No SOB or wheezing. Stable continue albuterol inhaler prn, continue Singulair DVT Prophylaxis Lovenox SQ Disposition Continue monitor in tele Cardiac cath on Sunday Total time spent on discharge = 40 minutes This includes examination of the patient, discharge planning, medication reconciliation, and communication with other providers. Discharge Instructions Discharge Instructions Date of Service Feb 08, 2018. Admission Reason for Admission: Chest Pain Discharge Discharge Diagnosis / Problem: Chest pain, Migriane Headache Discharge Goals Goal(s): Decrease discomfort, Improve function, Improve disease control Activity Recommendations Activity Limitations: resume your previous activity (as tolerated) . Instructions / Follow-Up Instructions / Follow-Up Please follow up with your primary care provider within 1 week (Please call to schedule for the appointment) Follow with up with your neurology Dr. Curry in 3-4 weeks (Please call to schedule for the appointment) Continue prednisone taper ( 30mg for 1 day, then 20mg for 3 days, then 10mg for 3days and stop) Post cath discharge patient discharge instructions as below. ACTIVITY RECOMMENDATIONS: Excess manipulation of the wrist should be avoided for the next 24-48 hours. * No lifting over 2 pounds (approximately a 1/2 gallon of milk) with the utilized arm for 24 hours. * No strenuous activity such as bowling or tennis for 3 days. * Keep the site of the procedure covered with a bandage for 24 hours. *You may shower the day after the procedure. Do not take a tub bath or submerge the puncture site in water for the next 3 days. *Do not operate any motorized equipment for 3 days. SPECIAL CARE INSTRUCTIONS: The site may be slightly bruised and sore following your procedure. Should any of the following occur, contact the Dr. who performed your procedure. 1. Redness/inflammation, swelling, chills, or fever, or colored drainage at procedure site within 3-7 days after your procedure. 2. Coldness, discoloration, ongoing numbness, severe pain, or swelling. Expect mild tingling of hand and tenderness at the puncture site for up to three days. If this persists beyond three days, or other symptoms develop, notify the Dr. who performed your procedure. BLEEDING: If the procedure site on your wrist begins to bleed, do not panic 1. Place 1 or 2 fingers firmly just slightly above the insertion site to stop the bleeding. You may be able to feel your pulse as you hold pressure. 2. Lift your finger after 5 minutes to see if the bleeding has stopped. 3. Once the bleeding has stopped, gently wipe the wrist area clean with a bandage. * If the bleeding from your wrist does not stop after 10 minutes, or if there is a large amount of bleeding or spurting, call 911 (do not drive yourself to the hospital). SKIN IRRITATION: * You may experience some redness and/or swelling in the area where radiation was administered. If any skin irritation occurs, please contact your family physician. Current Hospital Diet Patient's current hospital diet: AHA Diet (Heart Healthy) Discharge Diet Recommended Diet: AHA Diet (Heart Healthy) Procedures Procedures Performed: Cardiac cath Pending Studies Studies pending at discharge: no Laboratory Results Hemoglobin A1c Test 02/08/18 05:51 Range/Units Estimated Average Glucose 117 mg/dl Hemoglobin A1c 5.7 H 4.5-5.6 % Lipid Panel Test 02/08/18 05:51 Range/Units Triglycerides Level 95 0-150 mg/dl Cholesterol Level 186 0-200 mg/dl HDL Cholesterol 44 mg/dl Cholesterol/HDL Ratio 4.2 LDL Cholesterol, Calculated 123 mg/dl Medical Emergencies . Who to Call and When: Medical Emergencies: If at any time you feel your situation is an emergency, please call 911 immediately. . Non-Emergent Contact Non-Emergency issues call your: Primary Care Provider, Neurologist Call Non-Emergent contact if: you have any medication questions . . "Provider Documentation" section prepared by Kyung Stack. .
== END 2018-02-08 20:30 | disposition home or self-care (01) ==
LOC: C.EDB 06:14 → C.EDINP 10:51 → ENRESERV 12:41 → C.2T 13:16
PROVIDERS: ADMIT Internal Medicine; ATTEND Internal Medicine
DX: R07.9 Chest pain, unspecified (principal); G43.909 Migraine, unspecified, not intractable, without status migrainosus; E78.5 Hyperlipidemia, unspecified; J45.909 Unspecified asthma, uncomplicated; K21.9 Gastro-esophageal reflux disease without esophagitis; G47.30 Sleep apnea, unspecified; R20.0 Anesthesia of skin; Z87.891 Personal history of nicotine dependence; Z79.82 Long term (current) use of aspirin; Z88.1 Allergy status to other antibiotic agents; Z83.3 Family history of diabetes mellitus; Z82.3 Family history of stroke

== ENCOUNTER 2020-11-27 12:25 | Inpatient (IN) ==
[2020-11-27] MEDS ORDERED: DEXAMETHASONE SOD INJ 10 MG/ML VIAL IV ONE (12:57)
[2020-11-27] MEDS ORDERED: ALBUT/IPRATROP 3MG/0.5MG NEB 3 ML VIAL NEB ONE (12:57)
--- NOTE | 2020-11-27 13:01 | Emergency Department Note ---
Impression & Plan COVID-19, Acute asthma exacerbation, Hypoxia ED Provider Note Name: PAULIE REY Age: 60 Sex: M Arrives Via: Walk-In Informant: Patient ED Provider: Lakhwnider Ryan MD Chief Complaint: Shortness of breath Impression: COVID-19 Acute Asthma Exacerbation Hypoxia Medical Decision Makin yr old male with history asthma who notes about a month of shortness of breath, initially getting better, but now 3 days rapid worsening. Diffusely tight lungs sounds with wheezing. Given hour neb with vast improvement. CXR concerning for Pulm Edema vs CHF, though by exam he is not overloaded, has normal BNP, normal trop and no cardiac history. I suspect this findings is poor inspiration plus possible underlying infection given previous pneumonia issues. Once neb given breathing much improved though still some wheezing and slight rhonchi LLL makes me suspicious for focal infiltrate thus did go ahead with giving PO doxy with planned discharge pending. Hycodan given as persistent cough with neb. With normal dimer I do not feel ct necessary. Vitals stable and patient comfortable. Post neb patient became diaphoretic and lightheaded. Sats noted to be in mid/upper 80s on room air. No chest pain and sob much improved. Repeat EKG done given symptoms reveals slight anterior ST depressions. While symptoms post neb due to neb vs doxy vs hycodan, I am concerned this may have been cardiac and he will clearly need a cardiac work up after these fin dings, as well as fact sats have started dropping. COVID which was initially sent TAMIR as planned d/c switched to in hospital test. This returned positive which would explain CXR findings and hypoxia much better (though hypoxia possibly post neb as well). Already received steroids. Will defer further management to hospitalist. Prior Medical Record and Triage/Nursing Notes reviewed by Me Additional history obtained from chart Differentials:Reactive airway disease, pneumonia, pneumothorax, COPD, CHF, infections, cardiac ischemia, pulmonary embolism, musculoskeletal, gastrointestinal, as well as other pathologies. Vital Signs: reviewed and remarkable for no significant abnormalities Interventions: saline lock, decadron 10mg IV, duoneb 1 hour, doxy 100mg po, hycodan po Labs:Reviewed and remarkable for no significant abnormalities Imaging:Radiologist interpretation reviewed by me: CXR congestion/pulm edema new EKG:Per My Interpretation: Indication Shortness of breath: NSR 82 bpm, qtc 429. No Ectopy. No Ischemia. Compared to EKG 01/19/20, no significant changes. Per My Interpretation: Indication diaphoresis/weakness post neb: NSR 93 bpm, qtc [address] depression which is new, no ectopy. This is a change from EKG at 1pm earlier today Cardiac/Tele Monitoring: Cardiac Monitoring: An Order was placed for continuous cardiac monitoring. The monitor shows a rate of 90 with a normal sinus rhythm. Consults:Dr Chuy Bergman hospitalist for admission Plan: Disposition:Hospitalization. Referred to: PCP Condition: Fair History of Present Illness:60 yr old male arrives for evaluation of persistent cough. Patient notes he had episode of asthma/wheezing a few weeks ago after hunting in the wet/cold. This gradually improved without treatment. At that time had negative covid testing. The last 3 days he has had rapidly worsening shortness of breath. Associated with cough and mild chills. No fevers, chest pain, syncope, nausea, vomiting, leg swelling, calf pain, headache, neck pain, rashes, abdominal pain nor other symptoms. Using nebulizer at home without improvement. Exertion makes worse, rest makes better. Denies dvt/pe history. No sick contacts. ROS: See above HPI for pertinent positives & negatives. A total of 10 systems reviewed and were otherwise negative. Past Medical History:Asthma, DLP, Migraines, Seizures, GERD Past Surgical History:EGD, Colonoscopy Family History:Father DMII, Stroke Social History:Former smoker Home Medications:See Below Allergies:azithromycin Vitals:Blood Pressure: 115/73, Pulse 68, RR 20, T 38C, O2 59% on RA Physical Exam: GENERAL: Patient is well appearing and in mild distress. EYES: No scleral icterus, unremarkable pupils. ENT: Mucous membranes moist, no nasal congestion. NECK: No masses appreciated, nomeningismus, trachea is midline. RESPIRATORY: Mild dyspnea with frequent cough, bilateral diffuse tight with wheezing and rhonchi throughout left lower lobe. CARDIOVASCULAR: Regular rate and rhythm.No murmurs, rubs, gallops appreciated. GASTROINTESTINAL: Abdomen soft, non-tender, no peritonitis.Bowel sounds positive.No masses appreciated. BACK: No midline tenderness, no CVA tenderness EXTREMITIES: Normal motion all extremities, no cyanosis, no edema. NEUROLOGIC: Alert and oriented, no acute motor or sensory deficits, no focal weakness, cranial nerves grossly intact. SKIN: No rash, no jaundice, no diaphoresis. PSYCH: Appropriate GCS: 15 ED Course: Times/Reassessments: initially much improved with neb, though towards end ill appearing, hypoxia, and diaphoretic. Lakhwinder Ryan MD Past Med/Surg History Medical History (Updated 11/28/20 @ 07:18 by Lakhwinder Ryan MD) Asthma GERD (gastroesophageal reflux disease) Hyperlipidemia Migraine triggered seizures Neurocardiogenic syncope Surgical History H/O colonoscopy History of cardiac catheterization History of esophagogastroduodenoscopy (EGD) Family History Father Stroke, Onset Age: 55 Mother COPD (chronic obstructive pulmonary disease) Other Diabetes Social History Smoking Status: Former smoker Tobacco Type: Cigarettes Second Hand Exposure: No; Do You Dip or Chew Tobacco: Yes; Hx Alcohol Use: No Hx Substance Use: No Preferred Language: Bots[place] Communication Ability: Effective Molasses Preparer Required: No Beliefs That Will Affect Care: None Current Living Situation: Spouse Feels Safe at Home: No Is there a partner from a previous relationship who is making you feel unsafe now?: No Any Concerns about Your Family Situation: No Would You Like to Speak to Someone About Your Situation: No Safety Concerns: Feels Safe At This Time Assistive Devices: None Allergies Allergies Allergy/AdvReac Type Severity Reaction Status Date / Time azithromycin Allergy Rash Unverified 01/19/20 15:14 Home Meds Home Medications Medication Instructions Recorded Confirmed albuterol sulfate [ProAir HFA] 2 puff INHALATION DAILY PRN 02/12/19 11/27/20 amlodipine 2.5 mg PO HS 02/12/19 11/27/20 montelukast 10 mg PO QAM 02/12/19 11/27/20 pantoprazole 40 mg PO QAM 02/12/19 11/27/20 Ajovy Syringe 1.5 mg SUBCUT .MONTHLY 04/20/19 11/27/20 acetaminophen [Tylenol Extra 500 mg PO Q6H PRN 01/19/20 11/27/20 Strength] magnesium 250 mg PO HS 01/19/20 11/27/20 riboflavin (vitamin B2) [Vitamin 100 mg PO QA 01/19/20 11/27/20 B-2] rosuvastatin [Crestor] 10 mg PO HS 01/19/20 11/27/20 aspirin 81 mg PO DAILY 11/27/20 11/27/20 divalproex 250 mg PO HS 11/27/20 11/27/20 Results & Data (ED) Vital Signs Vital Signs - 24 hr 11/27/20 12:28 11/27/20 13:01 11/27/20 13:02 Temperature 36.8 C Temperature Source Temporal Artery Scan Pulse Rate 68 83 Pulse Rate [Right Apical] Respiratory Rate 20 18 Respiratory Effort / Characteristics Non-Labored Non-Labored Spontaneous Respiratory Depth Normal Normal Respiratory Pattern Regular Blood Pressure 115/73 112/64 Blood Pressure Mean 87 80 Pulse Oximetry 95 98 Oxygen Delivery Method Room Air Nasal Cannula Nebulizer Oxygen Flow Rate 2 Sepsis Recent Fever Within 48 Hours No Sepsis New/Unexplained Change in Mental Status N/A Sepsis Action Taken by Nursing No Action Required Oxygen Flow Rate - Titration Pulse Oximetry Post Tiitration 11/27/20 13:18 11/27/20 13:19 11/27/20 13:30 Temperature Temperature Source Pulse Rate 79 Pulse Rate [Right Apical] 77 Respiratory Rate 22 17 Respiratory Effort / Characteristics Spontaneous Respiratory Depth Respiratory Pattern Blood Pressure 108/81 Blood Pressure Mean 91 Pulse Oximetry 98 97 Oxygen Delivery Method Nasal Cannula Nasal Cannula Nebulizer Oxygen Flow Rate 2 8 Sepsis Recent Fever Within 48 Hours Sepsis New/Unexplained Change in Mental Status Sepsis Action Taken by Nursing Oxygen Flow Rate - Titration Pulse Oximetry Post Tiitration 11/27/20 14:00 11/27/20 14:30 11/27/20 14:52 Temperature Temperature Source Pulse Rate 88 98 H 90 Pulse Rate [Right Apical] Respiratory Rate 12 16 22 Respiratory Effort / Characteristics Respiratory Depth Respiratory Pattern Blood Pressure 128/68 136/67 127/75 Blood Pressure Mean 78 72 85 Pulse Oximetry 98 93 95 Oxygen Delivery Method Oxygen Flow Rate Sepsis Recent Fever Within 48 Hours Sepsis New/Unexplained Change in Mental Status Sepsis Action Taken by Nursing Oxygen Flow Rate - Titration Pulse Oximetry Post Tiitration 11/27/20 15:00 11/27/20 15:30 11/27/20 16:00 Temperature Temperature Source Pulse Rate 90 84 83 Pulse Rate [Right Apical] Respiratory Rate 16 18 17 Respiratory Effort / Characteristics Respiratory Depth Respiratory Pattern Blood Pressure 127/65 123/65 114/65 Blood Pressure Mean 79 74 82 Pulse Oximetry 89 L 96 95 Oxygen Delivery Method Room Air Nasal Cannula Nasal Cannula Oxygen Flow Rate 0 3 2 Sepsis Recent Fever Within 48 Hours Sepsis New/Unexplained Change in Mental Status Sepsis Action Taken by Nursing Oxygen Flow Rate - Titration 3 Pulse Oximetry Post Tiitration 96 11/27/20 16:30 Temperature Temperature Source Pulse Rate 89 Pulse Rate [Right Apical] Respiratory Rate 20 Respiratory Effort / Characteristics Respiratory Depth Respiratory Pattern Blood Pressure 129/74 Blood Pressure Mean 82 Pulse Oximetry 95 Oxygen Delivery Method Nasal Cannula Oxygen Flow Rate 2 Sepsis Recent Fever Within 48 Hours Sepsis New/Unexplained Change in Mental Status Sepsis Action Taken by Nursing Oxygen Flow Rate - Titration Pulse Oximetry Post Tiitration Laboratory Data Result diagrams: 11/28/20 05:56 11/27/20 12:59 Lab Results 11/27/20 11/27/20 11/27/20 Range/Units 12:59 12:59 12:59 WBC 4.99 (4.8-10.8) K/uL RBC 4.90 (4.7-6.1) M/uL Hgb 14.9 (14.0-18.0) g/dL Hct 44.1 (42-52) % MCV 90.0 (80-100) fL MCH 30.4 (25-34) pg MCHC 33.8 (32-36) g/dL RDW Std Deviation 46.3 (36.4-46.3) fL RDW Coeff of [place] 13.9 (11.5-14.5) % Plt Count 241 (130-400) K/uL MPV 9.3 (7.4-10.4) fL Immature Gran % (Auto) 0.2 % Neut % (Auto) 70.8 % Lymph % (Auto) 19.0 % [place] % (Auto) 9.2 % Eos % (Auto) 0.6 % Baso % (Auto) 0.2 % Neut # (Auto) 3.53 (1.4-6.5) K/uL Lymph # (Auto) 0.95 L (1.2-3.4) K/uL [place] # (Auto) 0.46 (0.11-0.59) K/uL Eos # (Auto) 0.03 (0-0.5) K/uL Baso # (Auto) 0.01 (0-0.2) K/uL Immature Gran # (Auto) 0.01 (0.00-0.02) K/uL D-Dimer 320 (0-500) ug/L FEU Sodium 140 (136-145) mmol/L Potassium 4.1 (3.5-5.1) mmol/L Chloride 108 H (98-107) mmol/L Carbon Dioxide 27 (21-32) mmol/L Anion Gap 5.0 (3-11) BUN 13 (7-18) mg/dl Creatinine 0.86 (0.6-1.4) mg/dl Est Cr Clr Drug Dosing 103.5 ml/min Est GFR ( Amer) 110.8 Est GFR (Non-Af Amer) 95.6 BUN/Creatinine Ratio 15.6 (10-20) Glucose 96 (70-99) mg/dl Calcium 9.0 (8.5-10.1) mg/dl Magnesium 2.5 H (1.8-2.4) mg/dl Ferritin (8-388) ng/ml AST (15-37) U/L ALT (12-78) U/L Troponin I < 0.015 (0-0.045) ng/ml C-Reactive Protein (0-0.29) mg/dl NT-Pro-B Natriuret Pep 9 (0-900) pg/ml COVID-19 Eval Order Nasopharyn COVID-19 PCR Hepatitis C Ab Screen (Neg) SARS-CoV-2, RNA, NAAT (NEGATIVE) 11/27/20 11/27/20 11/27/20 Range/Units 12:59 13:00 15:14 WBC (4.8-10.8) K/uL RBC (4.7-6.1) M/uL Hgb (14.0-18.0) g/dL Hct (42-52) % MCV (80-100) fL MCH (25-34) pg MCHC (32-36) g/dL RDW Std Deviation (36.4-46.3) fL RDW Coeff of [place] (11.5-14.5) % Plt Count (130-400) K/uL MPV (7.4-10.4) fL Immature Gran % (Auto) % Neut % (Auto) % Lymph % (Auto) % [place] % (Auto) % Eos % (Auto) % Baso % (Auto) % Neut # (Auto) (1.4-6.5) K/uL Lymph # (Auto) (1.2-3.4) K/uL [place] # (Auto) (0.11-0.59) K/uL Eos # (Auto) (0-0.5) K/uL Baso # (Auto) (0-0.2) K/uL Immature Gran # (Auto) (0.00-0.02) K/uL D-Dimer (0-500) ug/L FEU Sodium (136-145) mmol/L Potassium (3.5-5.1) mmol/L Chloride (98-107) mmol/L Carbon Dioxide (21-32) mmol/L Anion Gap (3-11) BUN (7-18) mg/dl Creatinine (0.6-1.4) mg/dl Est Cr Clr Drug Dosing ml/min Est GFR ( Amer) Est GFR (Non-Af Amer) BUN/Creatinine Ratio (10-20) Glucose (70-99) mg/dl Calcium (8.5-10.1) mg/dl Magnesium (1.8-2.4) mg/dl Ferritin 538.9 H (8-388) ng/ml AST 24 (15-37) U/L ALT 41 (12-78) U/L Troponin I (0-0.045) ng/ml C-Reactive Protein 1.10 H (0-0.29) mg/dl NT-Pro-B Natriuret Pep (0-900) pg/ml COVID-19 Eval Order Covid19 Sent to [facility] COVID-19 PCR Hepatitis C Ab Screen Neg (Neg) SARS-CoV-2, RNA, NAAT (NEGATIVE) 11/27/20 11/27/20 Range/Units 15:14 16:25 WBC (4.8-10.8) K/uL RBC (4.7-6.1) M/uL Hgb (14.0-18.0) g/dL Hct (42-52) % MCV (80-100) fL MCH (25-34) pg MCHC (32-36) g/dL RDW Std Deviation (36.4-46.3) fL RDW Coeff of [place] (11.5-14.5) % Plt Count (130-400) K/uL MPV (7.4-10.4) fL Immature Gran % (Auto) % Neut % (Auto) % Lymph % (Auto) % [place] % (Auto) % Eos % (Auto) % Baso % (Auto) % Neut # (Auto) (1.4-6.5) K/uL Lymph # (Auto) (1.2-3.4) K/uL [place] # (Auto) (0.11-0.59) K/uL Eos # (Auto) (0-0.5) K/uL Baso # (Auto) (0-0.2) K/uL Immature Gran # (Auto) (0.00-0.02) K/uL D-Dimer (0-500) ug/L FEU Sodium (136-145) mmol/L Potassium (3.5-5.1) mmol/L Chloride (98-107) mmol/L Carbon Dioxide (21-32) mmol/L Anion Gap (3-11) BUN (7-18) mg/dl Creatinine (0.6-1.4) mg/dl Est Cr Clr Drug Dosing ml/min Est GFR ( Amer) Est GFR (Non-Af Amer) BUN/Creatinine Ratio (10-20) Glucose (70-99) mg/dl Calcium (8.5-10.1) mg/dl Magnesium (1.8-2.4) mg/dl Ferritin (8-388) ng/ml AST (15-37) U/L ALT (12-78) U/L Troponin I (0-0.045) ng/ml C-Reactive Protein (0-0.29) mg/dl NT-Pro-B Natriuret Pep (0-900) pg/ml COVID-19 Eval Order Nasopharyn COVID-19 PCR Cancelled Hepatitis C Ab Screen (Neg) SARS-CoV-2, RNA, NAAT POSITIVE A* (NEGATIVE) Administered Medications Albuterol (Albut/Ipratrop 3mg/0.5mg Neb 3 Ml Vial) 3 ml NEB Q6R MIKKI Stop: 12/28/20 00:59 Last Admin: 11/28/20 00:06 Dose: 3 ml Documented by: [id number] Amlodipine Besylate (Amlodipine Besylate 5 Mg Tab) 2.5 mg PO [facility] Stop: 12/27/20 20:59 Last Admin: 11/27/20 22:00 Dose: 2.5 mg Documented by: [id number] Divalproex Sodium (Divalproex Delay Release 250 Mg Tabec) 250 mg PO [facility] Stop: 12/27/20 20:59 Last Admin: 11/27/20 22:01 Dose: 250 mg Documented by: [id number] Doxycycline Hyclate (Doxycycline Hyclate 100 Mg Cap) 100 mg PO BID@0700,1900 [facility] Stop: 12/04/20 20:59 Last Admin: 11/28/20 00:24 Dose: 100 mg Documented by: [id number] Enoxaparin Sodium (Enoxaparin Inj 40 Mg/0.4 Ml Syr) 40 mg SQ BID MIKKI Stop: 12/27/20 22:14 Last Admin: 11/27/20 22:24 Dose: 40 mg Documented by: [id number] Famotidine (Famotidine 10 Mg Tablet) 10 mg PO BID MIKKI Stop: 12/27/20 20:59 Last Admin: 11/27/20 22:00 Dose: 10 mg Documented by: [id number] Guaifenesin (Guaifenesin 600 Mg Tabcr) 600 mg PO Q12 MIKKI Stop: 12/27/20 20:59 Last Admin: 11/27/20 22:24 Dose: 600 mg Documented by: [id number] Rosuvastatin Calcium (Rosuvastatin Calcium 10 Mg Tab) 10 mg PO [facility] Stop: 12/27/20 20:59 Last Admin: 11/27/20 22:00 Dose: 10 mg Documented by: [id number] Sodium Chloride (Sodium Chloride 0.9% 10ml Flush) 30 ml IV Q24H MIKKI Stop: 11/30/20 20:01 Last Admin: 11/27/20 21:01 Dose: 30 ml Documented by: [id number] Discontinued Medications Albuterol (Albut/Ipratrop 3mg/0.5mg Neb 3 Ml Vial) 12 ml NEB ONE ONE Stop: 11/27/20 12:58 Last Admin: 11/27/20 13:18 Dose: 12 ml Documented by: [id number] Albuterol (Albut/Ipratrop 3mg/0.5mg Neb 3 Ml Vial) Confirm Administered Dose 3 ml .ROUTE .STK-MED ONE Stop: 11/27/20 23:53 Last Admin: 11/28/20 02:23 Dose: Not Given Documented by: [id number] Dexamethasone (Dexamethasone Sod Inj 10 Mg/Ml Vial) 10 mg IV NOW ONE Stop: 11/27/20 12:58 Last Admin: 11/27/20 13:16 Dose: 10 mg Documented by: [id number] Doxycycline Hyclate (Doxycycline Hyclate 100 Mg Cap) 100 mg PO NOW STA Stop: 11/27/20 14:01 Last Admin: 11/27/20 14:21 Dose: 100 mg Documented by: [id number] Furosemide (Furosemide 40 Mg/4 Ml Vial) 40 mg IV ONE ONE Stop: 11/27/20 16:27 Last Admin: 11/27/20 17:10 Dose: 40 mg Documented by: [id number] Hydrocodone Bit/Homatropine Methylb (Hydrocodone/Homatropine Syrup 5mg/1.5mg 5ml Udp) 5 ml PO NOW STA Stop: 11/27/20 14:01 Last Admin: 11/27/20 14:21 Dose: 5 ml Documented by: [id number] Hydrocodone Bit/Homatropine Methylb (Hycodan 60ml Bottle Homepack) 1 homepack PO UD ONE Stop: 11/27/20 14:37 Last Admin: 11/27/20 16:19 Dose: Not Given Documented by: [id number] Remdesivir 200 mg/ Sodium (Chloride) 250 mls @ 125 mls/hr IV ONE STA; Protocol Stop: 11/27/20 19:46 Last Infusion: 11/27/20 21:02 Dose: 0 mls/hr Documented by: [id number] Admin: 11/27/20 18:39 Dose: 125 mls/hr Documented by: [id number] Sodium Chloride (Nss 1000ml) 1,000 mls @ 150 mls/hr IV .Q6H40M MIKKI Stop: 12/27/20 18:29 Last Infusion: 11/27/20 21:03 Dose: 0 mls/hr Documented by: [id number] Admin: 11/27/20 18:39 Dose: 150 mls/hr Documented by: [id number] Sodium Chloride (Nss 1000ml) 1,000 mls @ 150 mls/hr IV .Q6H40M ONE Stop: 11/28/20 01:54 Last Infusion: 11/28/20 03:28 Dose: 0 mls/hr Documented by: [id number] Admin: 11/27/20 21:01 Dose: 150 mls/hr Documented by: [id number] Discharge Plan Visit Data Chief Complaint: Shortness of Breath/Dyspnea Stated Complaint: TROUBLE BREATHING - TREATMENTS NOT WORKING ED Provider: Lakhwinder Ryan Discharge Problem: COVID-19, Acute asthma exacerbation, Hypoxia Patient Disposition: Home - Self-Care Condition: Good Discharge Instructions Interventions: ED Discharge Assessment Last Done: 11/27/20 20:15 Discharge Problem: Acute asthma exacerbation Qualifiers: Asthma severity: moderate Asthma persistence: persistent Qualified Code(s): J45.41 - Moderate persistent asthma with (acute) exacerbation
[2020-11-27 13:13] LABS: Basophils # (auto) 0.01 K/uL (0-0.2); Basophils % (auto) 0.2 %; Eosinophils # (auto) 0.03 K/uL (0-0.5); Eosinophils % (auto) 0.6 %; Hematocrit (blood only) 44.1 % (42-52); Hemoglobin 14.9 g/dL (14.0-18.0); Immature Granulocytes # (auto) 0.01 K/uL (0.00-0.02); Immature Granulocytes % (auto) 0.2 %; Lymphocytes # (auto) 0.95 K/uL (1.2-3.4); Mean Corpuscular Hemoglobin 30.4 pg (25-34); Mean Corpuscular Hgb Conc 33.8 g/dL (32-36); Mean Platelet Volume 9.3 fL (7.4-10.4); Monocytes # (auto) 0.46 K/uL (0.11-0.59); Monocytes % (auto) 9.2 %; Neutrophils # (auto) 3.53 K/uL (1.4-6.5); Neutrophils % (auto) 70.8 %; Platelet Count 241 K/uL (130-400); RDW Coefficient of Variation 13.9 % (11.5-14.5); RDW Standard Deviation 46.3 fL (36.4-46.3); White Blood Count 4.99 K/uL (4.8-10.8)
--- NOTE | 2020-11-27 13:20 | XRay Report ---
SINGLE VIEW CHEST CLINICAL HISTORY: Cough and dyspnea. FINDINGS: An AP, portable, upright chest radiograph is compared to study dated 01/19/2020. The examina tion is mildly degraded by portable technique and patient rotation. The heart is enlarged. There is p ulmonary vascular congestion. There are hazy bilateral interstitial airspace opacities. No large pleu ral effusion or pneumothorax is seen. The skeletal structures are osteopenic. The bony thorax is jono sly intact. IMPRESSION: 1. Cardiomegaly with evidence of congestive failure. 2. Bilateral interstitial airspace opacities could represent pulmonary edema versus and/or an infecti ous/inflammatory pneumonitis. Clinical correlation will be essential. ACT 112: Negative or not required by law. Electronically signed by: Joce Luis M.D. 11/27/2020 1:19 PM
[2020-11-27 13:22] LABS: D Dimer 320 ug/L FEU (0-500)
[2020-11-27 13:33] LABS: BUN Creatinine Ratio 15.6 (10-20); Blood Urea Nitrogen 13 mg/dl (7-18); Carbon Dioxide 27 mmol/L (21-32); Chloride 108 mmol/L (98-107); Creatinine Clr Calc Pharmacy 103.5 ml/min; Est GFR (African American) 110.8; Est GFR (Non-African American) 95.6; Glucose 96 mg/dl (70-99); Magnesium 2.5 mg/dl (1.8-2.4); Potassium 4.1 mmol/L (3.5-5.1); Sodium 140 mmol/L (136-145)
[2020-11-27 13:38] LABS: Troponin I < 0.015 ng/ml (0-0.045)
[2020-11-27 13:51] LABS: NT Pro B Type Natriuretic Pept 9 pg/ml (0-900)
[2020-11-27] MEDS ORDERED: HYDROcodone/HOMATROPINE SYRUP 5MG/1.5MG 5ML UDP PO STA (14:00)
[2020-11-27] MEDS ORDERED: DOXYCYCLINE HYCLATE 100 MG CAP PO STA (14:00)
[2020-11-27] MEDS ORDERED: HYCODAN 60ML BOTTLE HOMEPACK PO ONE (14:36)
--- NOTE | 2020-11-27 15:59 | History & Physical Report ---
Date of Service November 27, 2020 Assessment & Plan (1) Acute asthma exacerbation: Acute Respiratory failure with hypoxia: Acute asthma exacerbation/COVID Pneumonitis Minimal lactic acidosis likely due to Hypoxia Less likely CHF CXR:Cardiomegaly with evidence of congestive failure. Bilateral interstitial airspace opacities could represent pulmonary edema versus and/or an infectious/inflammatory pneumonitis. Clinical correlation will be essential. SARS-CoV-2: Positive Normal BNP, D-dimer, Procalcitonin Blood Cultures ordered Start on Remdesivir, Dexamethasone as per protocol May not benefit from Coalescent plasma given duration of symptoms Isolation precautions--Airborne/Contact Consult Pulmonology/ID if needed Monitor LFTs, renal function while on Remdesivir Started on Bronchodilators Started on Doxycycline empirically Oxygen support as needed Check for Influenza PCR Will Obtain ECHO Lasix PRN Monitor Lactate levels Atypical Chest Pain: Likely secondary to above Cardiac Cath in 2018: Normal Coronary arteries Initial troponin:Negative Obtain ECHO to check for wall motion abnormality Trend serial cardiac enzymes, repeat EKG, fasting lipid panel in AM Continue Aspirin, statins Oxygen PRN Consider Cardiology eval if needed Dyslipidemia Continue statin Monitor LFTs while on Remdesivir Migraine seizures H/O Migraine On Fremaneuzumab-Verm--Monthly (Last done Nov 20) Being Weaned off of Keppra Continue Keppra at bedtime Follows with Neurology as outpatient Continue magnesium, vitamin B2 supplements Positional sleep apnea As per Records Doesn't use CPAP GERD Continue PPI DVT Px: Lovenox SQ Code Status Full Code Disposition Expect to discharge home when medically stable History of Present Illness Chief Complaint: Shortness of Breath Primary Care Provider: Francy Macias DO Patient is a 60-year-old male with history of asthma, dyslipidemia, migraine seizures, positional sleep apnea, neurocardiogenic syncope, GERD and other medical problems presents with history of worsening shortness of breath associated with chest tightness, cough since 1 month duration. Patient states that his dyspnea was mainly on exertion since the past 1 month which has progressively worsened since last 3 days. He admits to using his home nebulizers more frequently secondary to his symptoms. Also states having cough with expectoration and wheezing since 3 days duration. Patient states that he had right-sided chest tightness which worsens with cough and deep breathing. He denies any radiation of chest pain, or increased pain with exertion. He does not use oxygen at home but was found to be hypoxic at 88% on room air while in ED. Patient received hour-long nebulizer while in ED which did not relieve his symptoms. Chest x-ray showed findings suggestive of cardiomegaly with evidence of congestive failure and also bilateral interstitial airspace opacity opacities. He also admits to not using his Advair Diskus inhaler as prescribed. Denies any history of palpitations, dizziness, pedal edema, hemoptysis, fever, chills, headache, double/blurry vision, nausea, vomiting, abdominal pain, diarrhea, dysuria, recent travel, sick contact, exposure to COVID patients. Allergies Allergy/AdvReac Type Severity Reaction Status Date / Time azithromycin Allergy Rash Unverified 01/19/20 15:14 Home Medications Medication Instructions Recorded Confirmed Type albuterol sulfate [ProAir HFA] 2 puff INHALATION DAILY PRN 02/12/19 11/27/20 History amlodipine 2.5 mg PO HS 02/12/19 11/27/20 History montelukast 10 mg PO QAM 02/12/19 11/27/20 History pantoprazole 40 mg PO QAM 02/12/19 11/27/20 History Ajovy Syringe 1.5 mg SUBCUT .MONTHLY 04/20/19 11/27/20 History acetaminophen [Tylenol Extra 500 mg PO Q6H PRN 01/19/20 11/27/20 History Strength] magnesium 250 mg PO HS 01/19/20 11/27/20 History riboflavin (vitamin B2) [Vitamin 100 mg PO QAM 01/19/20 11/27/20 History B-2] rosuvastatin [Crestor] 10 mg PO HS 01/19/20 11/27/20 History aspirin 81 mg PO DAILY 11/27/20 11/27/20 History divalproex 250 mg PO HS 11/27/20 11/27/20 History Past Med/Surg History Medical History Asthma GERD (gastroesophageal reflux disease) Hyperlipidemia Migraine triggered seizures Neurocardiogenic syncope Surgical History H/O colonoscopy History of cardiac catheterization History of esophagogastroduodenoscopy (EGD) Family History Father Stroke, Onset Age: 55 Mother COPD (chronic obstructive pulmonary disease) Other Diabetes Social History Smoking Status: Former smoker Tobacco Type: Cigarettes Hx Alcohol Use: No Preferred Language: Yoruba Feels Safe at Home: Yes Review of Systems Review of Systems: All systems reviewed & are unremarkable except as noted in HPI & below Physical Exam Physical Exam: Physical Exam: Vitals signs as noted above General Appearance:Moderately built and nourished, no apparent distress Head: normocephalic, Atraumatic Eyes: normal inspection, EOMI Neck: supple, Trachea midline Respiratory/Chest: Decreased breath sounds, CTA, No accessory muscle use Cardiovascular: S1, S2, No murmur Abdomen/GI:Soft, Non tender, Bowel sounds present Extremities/Musculoskelatal:normal inspection, no edema Neurologic/Psych:AAOX3, grossly no focal neurological deficits Skin: normal color, warm Results & Data Results & Data ([facility]) Vital Signs (Past 12 Hours) Vital Signs Temp Pulse Pulse Resp BP Pulse Ox 11/27/20 15:30 84 18 123/65 96 11/27/20 15:00 90 16 127/65 89 L 11/27/20 14:52 90 22 127/75 95 11/27/20 14:30 98 H 16 136/67 93 11/27/20 14:00 88 12 128/68 98 11/27/20 13:30 79 17 108/81 97 11/27/20 13:19 77 22 98 11/27/20 13:01 83 18 112/64 98 11/27/20 12:28 36.8 C 68 20 115/73 95 Laboratory Results Short CBC 11/27/20 Range/Units 12:59 WBC 4.99 (4.8-10.8) K/uL Hgb 14.9 (14.0-18.0) g/dL Hct 44.1 (42-52) % Plt Count 241 (130-400) K/uL BMP 11/27/20 12:59 Sodium 140 Potassium 4.1 Chloride 108 H Carbon Dioxide 27 BUN 13 Creatinine 0.86 Glucose 96 Calcium 9.0 Cardiac Enzymes 11/27/20 Range/Units 12:59 Troponin I < 0.015 (0-0.045) ng/ml Diagnostic Findings CXR: 1. Cardiomegaly with evidence of congestive failure. 2. Bilateral interstitial airspace opacities could represent pulmonary edema versus and/or an infectious/inflammatory pneumonitis. Clinical correlation will be essential. ECG Additional Comments: EKG: Incomplete right bundle branch block, nonspecific T wave abnormalities in anterior leads, QTC 455, normal sinus rhythm on my interpretation. (1) Acute asthma exacerbation Asthma persistence: persistent Asthma severity: moderate Qualified Code(s): J45.41 - Moderate persistent asthma with (acute) exacerbation
[2020-11-27] MEDS ORDERED: FUROSEMIDE 40 MG/4 ML VIAL IV ONE (16:26)
[2020-11-27] MEDS ORDERED: REMDESIVIR 200 MG in SODIUM CHLORIDE 0.9% 210 ML IV STA (17:47)
[2020-11-27 18:12] LABS: Ferritin 538.9 ng/ml (8-388)
[2020-11-27 18:19] LABS: C Reactive Protein 1.1 mg/dl (0-0.29)
[2020-11-27] MEDS ORDERED: SODIUM CHLORIDE 0.9% 1000ML 1,000 ML IV SCH (18:30)
[2020-11-27] MEDS ORDERED: SODIUM CHLORIDE 0.9% 1000ML 1,000 ML IV ONE (19:15)
[2020-11-27] MEDS ORDERED: ONDANSETRON INJ 2 MG/ML 2 ML VIAL IV PRN (20:37)
[2020-11-27] MEDS ORDERED: POLYETHYLENE (MIRALAX) 17 GM PACK PO PRN (20:37)
[2020-11-27] MEDS ORDERED: ENOXAPARIN INJ 40 MG/0.4 ML SYR SQ SCH ×3 (20:37→21:30)
[2020-11-27] MEDS ORDERED: ALBUTEROL HFA 8 GM INHALER INH PRN (20:39)
[2020-11-27] MEDS: SODIUM CHLORIDE 0.9% 10ML FLUSH IV SCH (21:01)
[2020-11-27] MEDS: FAMOTIDINE 10 MG TABLET PO SCH (22:00)
[2020-11-27] MEDS: ROSUVASTATIN CALCIUM 10 MG TAB PO SCH (22:00)
[2020-11-27] MEDS: amLODIPine BESYLATE 5 MG TAB PO SCH (22:00)
[2020-11-27] MEDS: DIVALPROEX DELAY RELEASE 250 MG TABEC PO SCH (22:01)
[2020-11-27] MEDS: guaiFENesin 600 MG TABCR PO SCH (22:24)
[2020-11-27] MEDS: ENOXAPARIN INJ 40 MG/0.4 ML SYR SQ SCH (22:24)
[2020-11-27] MEDS ORDERED: ALBUT/IPRATROP 3MG/0.5MG NEB 3 ML VIAL ONE (23:52)
[2020-11-28] MEDS: ALBUT/IPRATROP 3MG/0.5MG NEB 3 ML VIAL NEB SCH ×4 (00:06→19:44)
[2020-11-28] MEDS: DOXYCYCLINE HYCLATE 100 MG CAP PO SCH ×3 (00:24→20:48)
[2020-11-28 01:31] LABS: Influenza A virus by PCR Negative (Negative); Influenza B virus by PCR Negative (Negative)
[2020-11-28 07:03] LABS: Hematocrit (blood only) 40.9 % (42-52); Hemoglobin 13.9 g/dL (14.0-18.0); Immature Granulocytes # (auto) 0.01 K/uL (0.00-0.02); Immature Granulocytes % (auto) 0.2 %; Lymphocytes # (auto) 0.73 K/uL (1.2-3.4); Lymphocytes % (auto) 13.6 %; Mean Corpuscular Hemoglobin 30.3 pg (25-34); Mean Corpuscular Volume 89.3 fL (80-100); Mean Platelet Volume 9.8 fL (7.4-10.4); Monocytes # (auto) 0.32 K/uL (0.11-0.59); Neutrophils # (auto) 4.29 K/uL (1.4-6.5); Neutrophils % (auto) 80.2 %; Platelet Count 230 K/uL (130-400); RDW Coefficient of Variation 13.7 % (11.5-14.5); RDW Standard Deviation 45.2 fL (36.4-46.3); Red Blood Count 4.58 M/uL (4.7-6.1); White Blood Count 5.35 K/uL (4.8-10.8)
[2020-11-28 07:33] LABS: BUN Creatinine Ratio 25.6 (10-20); Blood Urea Nitrogen 21 mg/dl (7-18); Calcium 8.8 mg/dl (8.5-10.1); Carbon Dioxide 22 mmol/L (21-32); Chloride 106 mmol/L (98-107); Cholesterol 135 mg/dl (0-200); Creatinine Clr Calc Pharmacy 110.1 ml/min; Est GFR (African American) 113.5; Glucose 130 mg/dl (70-99); Magnesium 1.9 mg/dl (1.8-2.4); Sodium 138 mmol/L (136-145); Triglycerides 73 mg/dl (0-150); VLDL Cholesterol 15 mg/dl
[2020-11-28 07:37] LABS: Chol HDL Ratio 4; HDL Cholesterol 35 mg/dl; LDL Cholesterol Calculated 85 mg/dl; Troponin I < 0.015 ng/ml (0-0.045)
[2020-11-28] MEDS: FLUTICASONE/VILANTEROL 200/25MCG 14 PUFFS/INHALER INH SCH (08:15)
[2020-11-28] MEDS: dexAMETHasone 6 MG in SYRINGE 0 ML IV SCH (08:15)
[2020-11-28] MEDS: MAGNESIUM OXIDE 400 MG TAB PO SCH (08:16)
[2020-11-28] MEDS: PANTOprazole 40 MG TAB PO SCH (08:16)
[2020-11-28] MEDS: guaiFENesin 600 MG TABCR PO SCH ×2 (08:16→20:49)
[2020-11-28] MEDS: ASPIRIN 81 MG ECTAB PO SCH (08:16)
[2020-11-28] MEDS: MONTELUKAST SODIUM 10 MG TABLET PO SCH (08:16)
[2020-11-28] MEDS: FAMOTIDINE 10 MG TABLET PO SCH ×2 (08:16→20:50)
[2020-11-28] MEDS: ENOXAPARIN INJ 40 MG/0.4 ML SYR SQ SCH ×2 (08:17→20:50)
[2020-11-28] MEDS ORDERED: NON-FORMULARY MEDICATION (Riboflavin (Vitamin B2) [Vitamin B-2] 100 mg Tablet) PO SCH (09:00)
[2020-11-28] MEDS: ACETAMINOPHEN 325 MG TAB PO PRN (12:37)
--- NOTE | 2020-11-28 16:05 | Hospitalist Progress Note ---
Date of Service November 28, 2020 Assessment & Plan (1) Acute asthma exacerbation: Acute Respiratory failure with hypoxia: Acute asthma exacerbation/COVID Pneumonitis Minimal lactic acidosis likely due to Hypoxia Less likely CHF CXR:Cardiomegaly with evidence of congestive failure. Bilateral interstitial airspace opacities could represent pulmonary edema versus and/or an infectious/inflammatory pneumonitis. Clinical correlation will be essential. SARS-CoV-2: Positive Negative Influenza Normal BNP, D-dimer, Procalcitonin Blood Cultures pending Continue Remdesivir, Dexamethasone as per protocol Refused Coalescent plasma Isolation precautions--Airborne/Contact Monitor LFTs, renal function while on Remdesivir Continue Bronchodilators, Doxycycline Saturating well on room air currently Atypical Chest Pain: secondary to above Less likely ACS Cardiac Cath in 2018: Normal Coronary arteries Troponin:Negative Obtain ECHO as able Normal Lipid Panel Continue Aspirin, statins Oxygen PRN Dyslipidemia Continue statin Monitor LFTs while on Remdesivir Migraine seizures H/O Migraine On Fremaneuzumab-Verm--Monthly (Last done Nov 20) Being Weaned off of Keppra currently Continue Keppra at bedtime Follows with Neurology as outpatient Continue magnesium, vitamin B2 supplements Positional sleep apnea As per Records Doesn't use CPAP GERD Continue PPI DVT Px: Lovenox SQ Code Status Full Code Disposition Expect to discharge home when medically stable Admission and Anticipated Discharge Date Admission Date: November 27, 2020 Subjective Patient is seen and examined at bedside Cough better today Reports dyspnea on exertion and chest discomfort with coughing States feeling tired Sitting in chair comfortably this morning Saturating well on room air Review of Systems Review of Systems: All systems reviewed & are unremarkable except as noted in HPI & below Physical Exam Physical Exam: Physical Exam: Vitals signs as noted above General Appearance:Moderately built and nourished, no apparent distress Head: normocephalic, Atraumatic Eyes: normal inspection, EOMI Neck: supple, Trachea midline Respiratory/Chest: Decreased breath sounds, CTA, No accessory muscle use Cardiovascular: S1, S2, No murmur Abdomen/GI:Soft, Non tender, Bowel sounds present Extremities/Musculoskelatal:normal inspection, no edema Neurologic/Psych:AAOX3, grossly no focal neurological deficits Skin: normal color, warm Results & Data Results & Data ([facility]) Vital Signs (Past 12 Hours) Vital Signs Temp Pulse Pulse Resp BP Pulse Ox 11/28/20 13:23 83 18 97 11/28/20 11:46 37.1 C 85 19 113/72 96 11/28/20 08:02 80 11/28/20 07:53 37.2 C 77 20 124/70 94 11/28/20 07:25 70 18 97 Laboratory Results Short CBC 11/28/20 Range/Units 05:56 WBC 5.35 (4.8-10.8) K/uL Hgb 13.9 L (14.0-18.0) g/dL Hct 40.9 L (42-52) % Plt Count 230 (130-400) K/uL BMP 11/28/20 05:56 Sodium 138 Potassium 4.0 Chloride 106 Carbon Dioxide 22 BUN 21 H D Creatinine 0.81 Glucose 130 H Calcium 8.8 Cardiac Enzymes 11/27/20 11/28/20 Range/Units 22:54 05:56 Troponin I < 0.015 < 0.015 (0-0.045) ng/ml Liver Function 11/27/20 Range/Units 12:59 AST 24 (15-37) U/L ALT 41 (12-78) U/L (1) Acute asthma exacerbation Asthma persistence: persistent Asthma severity: moderate Qualified Code(s): J45.41 - Moderate persistent asthma with (acute) exacerbation
[2020-11-28] MEDS: amLODIPine BESYLATE 5 MG TAB PO SCH (20:49)
[2020-11-28] MEDS: DIVALPROEX DELAY RELEASE 250 MG TABEC PO SCH (20:49)
[2020-11-28] MEDS: ROSUVASTATIN CALCIUM 10 MG TAB PO SCH (20:49)
[2020-11-28] MEDS: SODIUM CHLORIDE 0.9% 10ML FLUSH IV SCH (21:04)
[2020-11-28] MEDS: REMDESIVIR 100 MG in SODIUM CHLORIDE 0.9% 230 ML IV SCH (21:04)
--- NOTE | 2020-11-28 21:19 | Electrocardiogram Report ---
Test Reason : Blood Pressure : / mmHG Vent. Rate : 082 BPM Atrial Rate : 082 BPM P-R Int : 138 ms QRS Dur : 100 ms QT Int : 368 ms P-R-T Axes : 046 -19 017 degrees QTc Int : 429 ms Normal sinus rhythm Low voltage QRS Borderline ECG When compared with ECG of 19-JAN-2020 14:10, No significant change was found Confirmed by Javan Bautista ([id number]) on 11/28/2020 9:19:17 PM Referred By: Confirmed By:Javan Bautista
--- NOTE | 2020-11-28 21:31 | Electrocardiogram Report ---
Test Reason : Blood Pressure : / mmHG Vent. Rate : 093 BPM Atrial Rate : 093 BPM P-R Int : 138 ms QRS Dur : 102 ms QT Int : 366 ms P-R-T Axes : 048 -17 -06 degrees QTc Int : 455 ms Normal sinus rhythm Low voltage QRS Nonspecific T wave abnormality Abnormal ECG When compared with ECG of 27-NOV-2020 13:02, (unconfirmed) Nonspecific T wave abnormality, worse in Anterior leads Confirmed by Javan Bautista ([id number]) on 11/28/2020 9:31:42 PM Referred By: Staci Macias Confirmed By:Javan Bautista
[2020-11-29] MEDS: ALBUT/IPRATROP 3MG/0.5MG NEB 3 ML VIAL NEB SCH ×2 (00:07→08:41)
[2020-11-29] MEDS: dexAMETHasone 6 MG in SYRINGE 0 ML IV SCH (08:00)
[2020-11-29] MEDS: FAMOTIDINE 10 MG TABLET PO SCH ×2 (08:00→20:31)
[2020-11-29] MEDS: MAGNESIUM OXIDE 400 MG TAB PO SCH (08:01)
[2020-11-29] MEDS: MONTELUKAST SODIUM 10 MG TABLET PO SCH (08:01)
[2020-11-29] MEDS: PANTOprazole 40 MG TAB PO SCH (08:01)
[2020-11-29] MEDS: ASPIRIN 81 MG ECTAB PO SCH (08:01)
[2020-11-29] MEDS: DOXYCYCLINE HYCLATE 100 MG CAP PO SCH ×2 (08:01→18:56)
[2020-11-29] MEDS: ENOXAPARIN INJ 40 MG/0.4 ML SYR SQ SCH ×2 (08:02→20:29)
[2020-11-29] MEDS: guaiFENesin 600 MG TABCR PO SCH ×2 (08:02→20:29)
[2020-11-29] MEDS: FLUTICASONE/VILANTEROL 200/25MCG 14 PUFFS/INHALER INH SCH (08:02)
[2020-11-29 08:58] LABS: Creatinine Clr Calc Pharmacy 113.6 ml/min; Est GFR (African American) 115.3; Est GFR (Non-African American) 99.5; Potassium 3.9 mmol/L (3.5-5.1)
[2020-11-29] MEDS ORDERED: ALBUT/IPRATROP 3MG/0.5MG NEB 3 ML VIAL NEB PRN (09:36)
--- NOTE | 2020-11-29 14:42 | Electrocardiogram Report ---
Test Reason : Blood Pressure : / mmHG Vent. Rate : 065 BPM Atrial Rate : 065 BPM P-R Int : 138 ms QRS Dur : 100 ms QT Int : 418 ms P-R-T Axes : 056 -08 -04 degrees QTc Int : 434 ms Normal sinus rhythm Low voltage QRS Nonspecific T wave abnormality Abnormal ECG When compared with ECG of 28-NOV-2020 10:20, No significant change was found Confirmed by Taco Portillo ([id number]) on 11/29/2020 2:42:04 PM Referred By: Staci Macias Confirmed By:Taco Portillo
[2020-11-29] MEDS: ACETAMINOPHEN 325 MG TAB PO PRN (17:06)
--- NOTE | 2020-11-29 17:47 | Hospitalist Progress Note ---
Date of Service November 29, 2020 Assessment & Plan (1) Acute asthma exacerbation: Acute Respiratory failure with hypoxia: Acute asthma exacerbation/COVID Pneumonitis Minimal lactic acidosis likely due to Hypoxia Less likely CHF CXR:Cardiomegaly with evidence of congestive failure. Bilateral interstitial airspace opacities could represent pulmonary edema versus and/or an infectious/inflammatory pneumonitis. Clinical correlation will be essential. SARS-CoV-2: Positive Negative Influenza Normal BNP, D-dimer, Procalcitonin Blood Cultures: No growth Continue Remdesivir, Dexamethasone as per protocol Refused Coalescent plasma Isolation precautions--Airborne/Contact Monitor LFTs, renal function while on Remdesivir Continue Bronchodilators, Doxycycline Saturating well on room air Needs 2 step prior to discharge Atypical Chest Pain: likely musculoskeletal secondary to cough secondary to above Less likely ACS Cardiac Cath in 2018: Normal Coronary arteries Troponin:Negative Obtain ECHO as able Normal Lipid Panel Continue Aspirin, statins Oxygen PRN Dyslipidemia Continue statin Monitor LFTs while on Remdesivir Migraine seizures H/O Migraine On Fremaneuzumab-Verm--Monthly (Last done Nov 20) Being Weaned off of Keppra currently Continue Keppra at bedtime Follows with Neurology as outpatient Continue magnesium, vitamin B2 supplements Positional sleep apnea As per Records Doesn't use CPAP GERD Continue PPI DVT Px: Lovenox SQ Code Status Full Code Disposition Expect to discharge home when medically stable Admission and Anticipated Discharge Date Admission Date: November 27, 2020 Subjective Patient is seen and examined at bedside Dyspnea better today Less cough today States having some chest discomfort with cough Appetite better Denies nausea, vomiting, abdominal pain, diarrhea Offers no other complaints Saturating well on room air Review of Systems Review of Systems: All systems reviewed & are unremarkable except as noted in HPI & below Physical Exam Physical Exam: Physical Exam: Vitals signs as noted above General Appearance:Moderately built and nourished, no apparent distress Head: normocephalic, Atraumatic Eyes: normal inspection, EOMI Neck: supple, Trachea midline Respiratory/Chest: Decreased breath sounds, Minimal right sided crackle Cardiovascular: S1, S2, No murmur Abdomen/GI:Soft, Non tender, Bowel sounds present Extremities/Musculoskelatal:normal inspection, no edema Neurologic/Psych:AAOX3, grossly no focal neurological deficits Skin: normal color, warm Results & Data Results & Data ([facility]) Vital Signs (Past 12 Hours) Vital Signs Temp Pulse Pulse Pulse Resp BP BP 11/29/20 16:41 37 C 96 H 16 109/64 11/29/20 15:09 36.8 C 60 18 11/29/20 11:19 36.9 C 18 114/66 11/29/20 08:43 74 18 11/29/20 07:00 36.9 C 63 18 104/63 BP Pulse Ox 11/29/20 16:41 63 L 11/29/20 15:09 106/63 92 11/29/20 11:19 96 11/29/20 08:43 93 11/29/20 07:00 96 (1) Acute asthma exacerbation Asthma persistence: persistent Asthma severity: moderate Qualified Code(s): J45.41 - Moderate persistent asthma with (acute) exacerbation
[2020-11-29] MEDS: REMDESIVIR 100 MG in SODIUM CHLORIDE 0.9% 230 ML IV SCH (20:27)
[2020-11-29] MEDS: ROSUVASTATIN CALCIUM 10 MG TAB PO SCH (20:28)
[2020-11-29] MEDS: DIVALPROEX DELAY RELEASE 250 MG TABEC PO SCH (20:29)
[2020-11-29] MEDS: amLODIPine BESYLATE 5 MG TAB PO SCH (20:30)
[2020-11-29] MEDS: SODIUM CHLORIDE 0.9% 10ML FLUSH IV SCH (21:58)
[2020-11-30] MEDS: DOXYCYCLINE HYCLATE 100 MG CAP PO SCH (06:33)
[2020-11-30 08:44] LABS: BUN Creatinine Ratio 26.7 (10-20); Calcium 8.9 mg/dl (8.5-10.1); Creatinine Clr Calc Pharmacy 112.1 ml/min; Est GFR (African American) 114.7; Potassium 3.8 mmol/L (3.5-5.1)
[2020-11-30 08:49] LABS: Ferritin 589.8 ng/ml (8-388)
[2020-11-30] MEDS: MONTELUKAST SODIUM 10 MG TABLET PO SCH (08:52)
[2020-11-30] MEDS: dexAMETHasone 6 MG in SYRINGE 0 ML IV SCH (08:52)
[2020-11-30] MEDS: FLUTICASONE/VILANTEROL 200/25MCG 14 PUFFS/INHALER INH SCH (08:52)
[2020-11-30] MEDS: MAGNESIUM OXIDE 400 MG TAB PO SCH (08:53)
[2020-11-30] MEDS: PANTOprazole 40 MG TAB PO SCH (08:53)
[2020-11-30] MEDS: ASPIRIN 81 MG ECTAB PO SCH (08:53)
[2020-11-30] MEDS: ENOXAPARIN INJ 40 MG/0.4 ML SYR SQ SCH (08:53)
[2020-11-30] MEDS: FAMOTIDINE 10 MG TABLET PO SCH (08:53)
[2020-11-30] MEDS: guaiFENesin 600 MG TABCR PO SCH (08:53)
--- NOTE | 2020-11-30 10:10 | XRay Report ---
XR chest 1V portable CLINICAL HISTORY: COVID SHORTNESS OF BREATH COMPARISON STUDY: 11/27/2020 FINDINGS: The cardiac and mediastinal contours remain stable. There is been near complete interval re solution of the previously identified interstitial opacities. There is no focal pulmonary consolidati on. There are no pleural effusions.[ IMPRESSION: No evidence of focal pulmonary consolidation. ACT 112: Negative or not required by law. Electronically signed by: Snicere Gold M.D. 11/30/2020 10:09 AM
[2020-11-30] MEDS: ACETAMINOPHEN 325 MG TAB PO PRN (10:43)
--- NOTE | 2020-11-30 14:57 | Hospitalist Progress Note ---
Date of Service November 30, 2020 Assessment & Plan (1) Acute asthma exacerbation: Acute Respiratory failure with hypoxia: Acute asthma exacerbation/COVID Pneumonitis Minimal lactic acidosis likely due to Hypoxia Less likely CHF CXR:Cardiomegaly with evidence of congestive failure. Bilateral interstitial airspace opacities could represent pulmonary edema versus and/or an infectious/inflammatory pneumonitis. Clinical correlation will be essential. SARS-CoV-2: Positive Negative Influenza Normal BNP, D-dimer, Procalcitonin Blood Cultures: No growth Continue Remdesivir Day 4/5 Continue Dexamethasone Day #4 Refused Coalescent plasma Isolation precautions--Airborne/Contact Monitor LFTs, renal function while on Remdesivir Continue Bronchodilators, Doxycycline Saturating well on room air 2 step: Did not qualify for supplemental oxygen Plan to discharge on prednisone taper Ambulatory dysfunction Unsteady gait--likely chronic PT OT eval done Will benefit from walker use with ambulation to prevent falls. Atypical Chest Pain: likely musculoskeletal secondary to cough secondary to above Less likely ACS Cardiac Cath in 2018: Normal Coronary arteries Troponin:Negative Obtain ECHO as able Normal Lipid Panel Continue Aspirin, statins Oxygen PRN Dyslipidemia Continue statin Monitor LFTs while on Remdesivir Migraine seizures H/O Migraine On Fremaneuzumab-Verm--Monthly (Last done Nov 20) Being Weaned off of Keppra currently Continue Keppra at bedtime Follows with Neurology as outpatient Continue magnesium, vitamin B2 supplements Positional sleep apnea As per Records Doesn't use CPAP GERD Continue PPI DVT Px: Lovenox SQ Code Status Full Code Disposition Plan to discharge home today Admission and Anticipated Discharge Date Admission Date: November 27, 2020 Subjective Patient is seen and examined at bedside Dyspnea resolved Much less cough Chest soreness resolved Evaluated by PT OT earlier today Did not qualify for oxygen with 2 step Plan to discharge home today Offers no other complaints Eager to get discharged Review of Systems Review of Systems: All systems reviewed & are unremarkable except as noted in HPI & below Physical Exam Physical Exam: Physical Exam: Vitals signs as noted above General Appearance:Moderately built and nourished, no apparent distress Head: normocephalic, Atraumatic Eyes: normal inspection, EOMI Neck: supple, Trachea midline Respiratory/Chest: Decreased breath sounds, CTA Cardiovascular: S1, S2, No murmur Abdomen/GI:Soft, Non tender, Bowel sounds present Extremities/Musculoskelatal:normal inspection, no edema Neurologic/Psych:AAOX3, grossly no focal neurological deficits Skin: normal color, warm Results & Data Results & Data ([facility]) Vital Signs (Past 12 Hours) Vital Signs Temp Pulse Pulse Pulse Pulse Resp Resp 11/30/20 12:25 67 60 55 L 18 11/30/20 07:41 37.0 C 59 L 18 Resp Resp BP Pulse Ox Pulse Ox Pulse Ox Pulse Ox 11/30/20 12:25 18 16 97 98 95 11/30/20 07:41 108/70 94 Laboratory Results [facility] 11/30/20 07:26 Sodium 138 Potassium 3.8 Chloride 105 Carbon Dioxide 25 BUN 21 H Creatinine 0.79 Glucose 95 Calcium 8.9 Liver Function 11/30/20 Range/Units 07:26 AST 15 (15-37) U/L ALT 33 (12-78) U/L (1) Acute asthma exacerbation Asthma persistence: persistent Asthma severity: moderate Qualified Code(s): J45.41 - Moderate persistent asthma with (acute) exacerbation
[2020-11-30] MEDS: REMDESIVIR 100 MG in SODIUM CHLORIDE 0.9% 230 ML IV SCH (15:14)
--- NOTE | 2020-11-30 15:22 | Discharge Summary ---
Date of Service November 30, 2020 Admission HPI Per Admitting Provider Patient is a 60-year-old male with history of asthma, dyslipidemia, migraine seizures, positional sleep apnea, neurocardiogenic syncope, GERD and other medical problems presents with history of worsening shortness of breath associated with chest tightness, cough since 1 month duration. Patient states that his dyspnea was mainly on exertion since the past 1 month which has progressively worsened since last 3 days. He admits to using his home nebulizers more frequently secondary to his symptoms. Also states having cough with expectoration and wheezing since 3 days duration. Patient states that he had right-sided chest tightness which worsens with cough and deep breathing. He denies any radiation of chest pain, or increased pain with exertion. He does not use oxygen at home but was found to be hypoxic at 88% on room air while in ED. Patient received hour-long nebulizer while in ED which did not relieve his symptoms. Chest x-ray showed findings suggestive of cardiomegaly with evidence of congestive failure and also bilateral interstitial airspace opacity opacities. He also admits to not using his Advair Diskus inhaler as prescribed. Denies any history of palpitations, dizziness, pedal edema, hemoptysis, fever, chills, headache, double/blurry vision, nausea, vomiting, abdominal pain, diarrhea, dysuria, recent travel, sick contact, exposure to COVID patients. Admission Exam Per Admitting Provider Physical Exam: Vitals signs as noted above General Appearance:Moderately built and nourished, no apparent distress Head: normocephalic, Atraumatic Eyes: normal inspection, EOMI Neck: supple, Trachea midline Respiratory/Chest: Decreased breath sounds, CTA, No accessory muscle use Cardiovascular: S1, S2, No murmur Abdomen/GI:Soft, Non tender, Bowel sounds present Extremities/Musculoskelatal:normal inspection, no edema Neurologic/Psych:AAOX3, grossly no focal neurological deficits Skin: normal color, warm Principal Diagnosis Acute Respiratory failure with hypoxia COVID 19 Pneumonitis Acute asthma exacerbation Discharge Data Allergies Allergy/AdvReac Type Severity Reaction Status Date / Time azithromycin Allergy Rash Unverified 01/19/20 15:14 Consultations 11/27/20 15:33 ED Decision to Admit Stat Procedures Performed CXR:Cardiomegaly with evidence of congestive failure. Bilateral interstitial airspace opacities could represent pulmonary edema versus and/or an infectious/inflammatory pneumonitis. Clinical correlation will be essential. Hospital Course (1) Acute asthma exacerbation: Acute Respiratory failure with hypoxia: Acute asthma exacerbation/COVID Pneumonitis Minimal lactic acidosis likely due to Hypoxia Less likely CHF CXR:Cardiomegaly with evidence of congestive failure. Bilateral interstitial airspace opacities could represent pulmonary edema versus and/or an infectious/inflammatory pneumonitis. Clinical correlation will be essential. SARS-CoV-2: Positive Negative Influenza Normal BNP, D-dimer, Procalcitonin Blood Cultures: No growth Continue Remdesivir Day 4/5 Continue Dexamethasone Day #4 Refused Coalescent plasma Isolation precautions--Airborne/Contact Monitor LFTs, renal function while on Remdesivir Continue Bronchodilators, Doxycycline Saturating well on room air 2 step: Did not qualify for supplemental oxygen Plan to discharge on prednisone taper Ambulatory dysfunction Unsteady gait--likely chronic PT OT eval done Will benefit from walker use with ambulation to prevent falls. Atypical Chest Pain: likely musculoskeletal secondary to cough secondary to above Less likely ACS Cardiac Cath in 2018: Normal Coronary arteries Troponin:Negative Obtain ECHO as able Normal Lipid Panel Continue Aspirin, statins Oxygen PRN Dyslipidemia Continue statin Monitor LFTs while on Remdesivir Migraine seizures H/O Migraine On Fremaneuzumab-Verm--Monthly (Last done Nov 20) Being Weaned off of Keppra currently Continue Keppra at bedtime Follows with Neurology as outpatient Continue magnesium, vitamin B2 supplements Positional sleep apnea As per Records Doesn't use CPAP GERD Continue PPI DVT Px: Lovenox SQ Code Status Full Code Disposition Plan to discharge home today Total Time Total Time Spent Total Time Spent (In Minutes): 45 minutes Total Time Includes: Examination of the Patient, Discharge Planning, Medication Reconciliation, Communication With Other Providers and Other Discharge Plan Discharge Items Patient Disposition: Home - Self-Care Reason For Visit: ACUTE RESPIRATORY FAILURE Discharge Diagnosis: Acute Respiratory failure with hypoxia COVID 19 Pneumonitis Acute asthma exacerbation Condition on Discharge: Good Activity: Per Instructions section Exercise/Sports: Gradually increase as tolerated Non-emergency contact: Primary Care Provider Call non-emergency contact if: you have any medication questions, your symptoms worsen, your pain is not controlled, your pain is worsening, your pain is unusual for you, your pain is concerning for you and you have a fever Follow-up/Referrals: Francy Macias, [Primary Care Provider] - (Date & Time 12/03/2020 2:20 PM Provider Francy Macias DO [facility] PLEASE NOTE THAT THIS IS A TELEVIDEO APPOINTMENT. PLEASE FOLLOW THE INSTRUCTIONS PROVIDED IN AN EMAIL. IF YOU HAVE ANY QUESTIONS OR WOULD LIKE TO CHANGE THE VIDEO APPOINTMENT, PLEASE CALL .) Diet: Heart Healthy Addtl Attending Provider Instructions: Follow-up with your primary care physician Dr. Macias on 12/03/2020 2:20 PM as scheduled Complete the antibiotic course doxycycline 100 mg twice daily as prescribed Use inhalers regularly as advised Complete the prednisone taper course as below Prednisone Taper Course Start taking prednisone 40 mg daily for 2 days, then 30 mg daily for 2 days then, 20 mg daily for 2 days then 10 mg daily for 2 days and stop. Final blood cultures are pending at the time of discharge. Follow-up with your physician for results. Seek immediate medical attention if your symptoms reoccur or worsen Home Isolation COVID-19 Instructions The following information about Home Isolation is from the CDC Website: https://www.cdc.gov/coronavirus/2019-ncov/hcp/nkmxicex-lifgwuq-lcqedw.html Stay home except to get medical care People who are mildly ill with COVID-19 are able to isolate at home during their illness. You should restrict activities outside your home, except for getting medical care. Do not go to work, school, or public areas. Avoid using public transportation, ride-sharing, or taxis. Separate yourself from other people and animals in your home People: As much as possible, you should stay in a specific room and away from other people in your home. Also, you should use a separate bathroom, if available. Animals: You should restrict contact with pets and other animals while you are sick with COVID-19, just like you would around other people. Although there have not been reports of pets or other animals becoming sick with COVID-19, it is still recommended that people sick with COVID-19 limit contact with animals until more information is known about the virus. When possible, have another member of your household care for your animals while you are sick. If you are sick with COVID-19, avoid contact with your pet, including petting, snuggling, being kissed or licked, and sharing food. If you must care for your pet or be around animals while you are sick, wash your hands before and after you interact with pets and wear a face mask. Call ahead before visiting your doctor If you have a medical appointment, call the healthcare provider and tell them that you have or may have COVID-19. This will help the healthcare providers office take steps to keep other people from getting infected or exposed. Wear a face mask You should wear a face mask when you are around other people (e.g., sharing a room or vehicle) or pets and before you enter a healthcare providers office. If you are not able to wear a face mask (for example, because it causes trouble breathing), then people who live with you should not stay in the same room with you, or they should wear a face mask if they enter your room. Cover your coughs and sneezes Cover your mouth and nose with a tissue when you cough or sneeze. Throw used tissues in a lined trash can. Immediately wash your hands with soap and water for at least 20 seconds or, if soap and water are not available, clean your hands with an alcohol-based hand mountain bike guide that contains at least 60% alcohol. Clean your hands often Wash your hands often with soap and water for at least 20 seconds, especially after blowing your nose, coughing, or sneezing; going to the bathroom; and before eating or preparing food. If soap and water are not readily available, use an alcohol-based hand mountain bike guide with at least 60% alcohol, covering all surfaces of your hands and rubbing them together until they feel dry. Soap and water are the best option if hands are visibly dirty. Avoid touching your eyes, nose, and mouth with unwashed hands. Avoid sharing personal household items You should not share dishes, drinking glasses, cups, eating utensils, towels, or bedding with other people or pets in your home. After using these items, they should be washed thoroughly with soap and water. Clean all high-touch surfaces everyday High touch surfaces include counters, tabletops, doorknobs, bathroom fixtures, toilets, phones, keyboards, tablets, and bedside tables. Also, clean any surfa moises that may have blood, stool, or body fluids on them. Use a household cleaning spray or wipe, according to the label instructions. Labels contain instructions for safe and effective use of the cleaning product including precautions you should take when applying the product, such as wearing gloves and making sure you have good ventilation during use of the product. Monitor your symptoms Seek prompt medical attention if your illness is worsening (e.g., difficulty breathing).Beforeseeking care, call your healthcare provider and tell them that you have, or are being evaluated for, COVID-19. Put on a face mask before you enter the facility. These steps will help the healthcare providers office to keep other people in the office or waiting room from getting infected or exposed. Ask your healthcare provider to call the local or state health department. Persons who are placed under active monitoring or facilitated self- monitoring should follow instructions provided by their local health department or occupational health professionals, as appropriate. When working with your local health department check their available hours. If you have a medical emergency and need to call 911, notify the dispatch personnel that you have, or are being evaluated for COVID-19. If possible, put on a face mask before emergency medical services arrive. Discontinuing home isolation Patients with confirmed COVID-19 should remain under home isolation precautions until the risk of secondary transmission to others is thought to be low. The decision to discontinue home isolation precautions should be made on a [id number] basis, in consultation with healthcare providers and state and local health departments. Coronavirus disease 2019 (COVID-19) is a virus that causes a respiratory illness. It is caused by a coronavirus called 2019 novel coronavirus (2019- nCoV). There are many types of coronavirus. Coronaviruses are a very common cause of bronchitis. They may sometimes cause lung infection(pneumonia). Symptoms can range from mild to severe respiratory illness. These viruses are also foundin some animals. COVID-19 was first found in people in [facility], in late 2019. In 2020, several cases of COVID-19 have been confirmed in the [place] Public health officials are working to find the source. How the virus spreads is not yet fully known. It may be spread through droplets of fluid that a person coughs or sneezes into the air. It may be spread if you touch a surface with virus on it, such as a handle or object, and then touch your mouth. What are the symptoms of COVID-19? Some people have no symptoms or mild symptoms. Symptoms may appear 2 to 14 days after contact with the virus. Symptoms can include: Fever Coughing Trouble breathing What are possible complications from COVID-19? In many cases, this virus can cause infection (pneumonia) in both lungs. In some cases, this can cause . How is COVID-19 diagnosed? Your healthcare provider will ask about your symptoms. He or she will also ask about your recent travel and contact with sick people. Testing for the virus is only done through the CDC. If yourhealthcare provider thinks you may have COVID- 19, he or she will work with your local health department and the CDC on testing. Follow all instructions from your healthcare provider. COVID-19 is diagnosed by: Nasal and throat swab. A cotton-tipped swab is wiped inside your nose or throat. This is done to check for viruses in your nasal mucus. Sputum culture. A small sample of mucus coughed from your lungs (sputum) is collected if you have a cough. It is checked for the virus. How is COVID-19 treated? There is currently no medicine to treat the virus. Treatment is done to help your body while it fights the virus. This is known as supportive care. Supportive care may include: Pain medicine. These include acetaminophen and ibuprofen. They are used to help ease pain and reduce fever. Bed rest. This helps your body fight the illness. For severe illness, you may need to stay in the hospital. Care during severe illness may include: IV (intravenous) fluids.These are given through a vein to help keep your body hydrated. Oxygen. Supplemental oxygen or ventilation with a breathing machine (ventilator) may be given. This is done to keep enough oxygen in your body. Are you at risk for COVID-19? If youve been to a place where people have been sick with this virus, you are at risk for infection. You are at risk if you: Recently traveled to an affected area Had contact with a sick person who recently traveled to this area Had contact with a person who was diagnosed with COVID-19 How can COVID-19 be prevented? There is no vaccine yet. The best prevention is to not have contact with the virus. The CDC advises that people should not travel to areas where there are COVID-19 outbreaks right now for any reason that is not urgent. To help prevent spreading the infection, wash your hands often, or use an alcohol-basedhand mountain bike guide. If you are in an area with COVID-19: Wash your hands often. Or use an alcohol-based hand mountain bike guide often. Only touch your eyes, nose, or mouth with clean hands. Dont have contact with people who are sick. Follow local instructions about being in public. For example, you may be told to not use public transport for a period of time. Stay away from markets that have live or animals. Wash your hands after touching any animals. Don't touch animals that may be sick. Dont share eating or drinking tools with sick people. Dont kiss someone who is sick. Clean surfaces often with disinfectant. If you were in an area with COVID-19 in the last 14 days: Call your healthcare provider. He or she can talk with local health staff to see what action may be needed. Follow all instructions from your provider. Take your temperature every morning and evening for at least 14 days. This is to check for fever. Keep a record of the readings. Keep watch for symptoms of the virus. Tell your provider right away if you have symptoms. If you were in an area with COVID-19 and have a fever or other symptoms: Dont panic. Keep in mind that other illnesses can cause similar symptoms. Stay away from work, school, and public places. Limit physical contact with family members. Don't kiss anyone or share eating or drinking utensils. Clean surfaces you touch with disinfectant. This is to help prevent the virus from spreading. Call your healthcare provider. Explain that you have been exposed to COVID-19 and have symptoms. Do this before going to any hospital. Wait for instructions. Keep in mind that healthcare staff may wear protective equipment such as masks, gowns, gloves, and eye protection. You may be put in a separate room. This is to prevent the possible virus from spreading. Tell the healthcare staff about recent travel. This includes local travel on public transport. Staff may need to find other people you have been in contact with. Follow all instructions the healthcare staff give you. If you have been diagnosed with COVID-19 Follow all instructions from your healthcare provider. Dont leave your home, except to get medical care. Call your healthcare providers office before going. They can prepare and give you instructions. This will help prevent the virus from spreading. Dont go to work, school, or public areas. Dont use public transport or taxis. Stay away from other people in your home. Have them wear face masks around you. Dont share household items or food. Wear a face mask if you can. This includes at home or in a medical facility. Cover your face with a tissue when you cough or sneeze. Throw the tissue away. Wash your hands. Wash your hands often. Caregivers should: Follow all instructions from healthcare staff. Wear a face mask and protective clothing as advised. Wash hands often. Keep track of the sick persons symptoms. Clean surfaces, fabrics, and laundry thoroughly. Keep other people away from the sick person. When to call your healthcare provider Call your healthcare provider: If youve recently traveled and have symptoms If you have been diagnosed with COVID-19 and your symptoms are worse To learn more To find out more about COVID-19, visit the CDC website at www.cdc.gov/coronavirus/2019-ncov/index.html. [employer]. [address] [place] [address]. All rights reserved. This information is not intended as a substitute for professional medical care. Always follow your healthcare professional's instructions. This information has been adapted from [employer] Pending Studies at Discharge: Yes Studies:: Blood Cultures Stand-Alone Forms: My [facility] [employer], Smoking Cessation Medications and DC Order Prescriptions: New doxycycline hyclate 100 mg Capsule 100 mg PO BID@0700,1900 Qty: 7 RF: 0 famotidine [Acid Hydraulic Dredge Operator (famotidine)] 10 mg Tablet 10 mg PO HS Qty: 10 RF: 0 Breo Ellipta 200-25 mcg/dose Blister With Device 1 inh inhalation DAILY Qty: 60 RF: 0 guaifenesin [Mucinex] 600 mg Tablet Extended Release 12hr 600 mg PO Q12 Qty: 6 RF: 0 prednisone 10 mg tablet 10 mg PO UD Qty: 20 RF: 0 Continued amlodipine 5 mg tablet 2.5 mg PO HS RF: 0 pantoprazole 40 mg tablet,delayed release (DR/EC) 40 mg PO QAM RF: 0 montelukast 10 mg tablet 10 mg PO QAM RF: 0 albuterol sulfate [ProAir HFA] 90 mcg/actuation HFA aerosol inhaler 2 puff Inhalation DAILY PRN (Reason: Shortness Of Breath) RF: 0 Ajovy Syringe 225 mg/1.5 mL syringe 1.5 mg subcut .MONTHLY RF: 0 rosuvastatin [Crestor] 10 mg tablet 10 mg PO HS RF: 0 riboflavin (vitamin B2) [Vitamin B-2] 100 mg Tablet 100 mg PO QAM RF: 0 acetaminophen [Tylenol Extra Strength] 500 mg Tablet 500 mg PO Q6H PRN (Reason: Pain) RF: 0 magnesium 250 mg Tablet 250 mg PO HS RF: 0 divalproex 250 mg tablet,delayed release (DR/EC) 250 mg PO HS RF: 0 aspirin 81 mg Tablet 81 mg PO DAILY RF: 0 Discharge Orders: Discharge Order (Routine); Ordered 11/30/20 Ordered By: Delonte Rose/Other Patient Handouts: COVID-19 Home Care Admission Data Admit Date/Time: 11/27/20 16:33 Attending Provider: Delonte Vera Admit Provider: Delonte Vera Primary Care Provider: Francy Macias Other Providers: Delonte Vera Other Interventions: Discharge Summary Assessment (RN) Last Done: 11/30/20 15:32
[2020-11-30 15:37] VITALS: BP 110/70; PULSE 55; TEMP 98.8; O2SAT 93
[2020-12-11] MEDS ORDERED: INFLUENZA ADMINISTRATION CHARGE ONE (08:00)
[2020-12-11] MEDS ORDERED: INFLUENZA VIRUS QUAD VACCINE 0.5 ML SYR IM ONE (08:00)
== END 2020-11-30 17:15 | disposition home or self-care (01) | DRG 177 ==
LOC: ED 12:25 → 2E 16:33 → 3E 11-29 09:26

== ENCOUNTER 2021-05-22 14:30 | Observation (INO) ==
[2021-05-22] MEDS ORDERED: ASPIRIN CHEW 324 MG PO STA (14:52)
[2021-05-22] MEDS ORDERED: dilTIAZem HCl 5 MG/ML 5 ML VIAL IV STA (14:52)
[2021-05-22] MEDS ORDERED: SODIUM CHLORIDE 0.9% 500 ML IV SCH (15:00)
[2021-05-22 15:10] LABS: Basophils # (auto) 0.03 K/uL (0-0.2); Basophils % (auto) 0.3 %; Eosinophils # (auto) 0.07 K/uL (0-0.5); Eosinophils % (auto) 0.8 %; Hematocrit (blood only) 46.3 % (42-52); Hemoglobin 15.9 g/dL (14.0-18.0); Immature Granulocytes # (auto) 0.03 K/uL (0.00-0.02); Immature Granulocytes % (auto) 0.3 %; Lymphocytes # (auto) 1.89 K/uL (1.2-3.4); Lymphocytes % (auto) 21.2 %; Mean Corpuscular Hemoglobin 30.5 pg (25-34); Mean Corpuscular Hgb Conc 34.3 g/dL (32-36); Mean Corpuscular Volume 88.7 fL (80-100); Mean Platelet Volume 9.2 fL (7.4-10.4); Monocytes # (auto) 1.05 K/uL (0.11-0.59); Monocytes % (auto) 11.8 %; Neutrophils # (auto) 5.84 K/uL (1.4-6.5); Neutrophils % (auto) 65.6 %; Platelet Count 311 K/uL (130-400); RDW Coefficient of Variation 13.7 % (11.5-14.5); RDW Standard Deviation 44.4 fL (36.4-46.3); Red Blood Count 5.22 M/uL (4.7-6.1); White Blood Count 8.91 K/uL (4.8-10.8)
[2021-05-22 15:21] LABS: Partial Thromboplastin Time 27.3 Seconds (21.0-31.0); Prothrombin Time 10.3 Seconds (9.0-12.0)
--- NOTE | 2021-05-22 15:25 | XRay Report ---
SINGLE VIEW CHEST CLINICAL HISTORY: Generalized weakness. FINDINGS: An AP, portable, upright chest radiograph is compared to study dated 11/30/2020. The heart is top normal for projection. The mediastinal contour is within normal limits. The lungs and pleural sp aces are clear. No pneumothorax is seen. The bony thorax is grossly intact. IMPRESSION: No active disease in the chest. ACT 112: Negative or not required by law. Electronically signed by: Joce Luis M.D. 05/22/2021 3:24 PM
[2021-05-22 15:29] LABS: Alanine Aminotransferase 30 U/L (12-78); Albumin Level 3.7 gm/dl (3.4-5.0); Aspartate Aminotransferase 12 U/L (15-37); BUN Creatinine Ratio 17.6 (10-20); Blood Urea Nitrogen 14 mg/dl (7-18); Calcium 9.1 mg/dl (8.5-10.1); Carbon Dioxide 25 mmol/L (21-32); Chloride 106 mmol/L (98-107); Creatinine Clr Calc Pharmacy 114.8 ml/min; Est GFR (African American) 114.5 ml/min; Est GFR (Non-African American) 98.8 ml/min; Glucose 143 mg/dl (70-99); Magnesium 2.3 mg/dl (1.8-2.4); Potassium 3.7 mmol/L (3.5-5.1); Sodium 140 mmol/L (136-145)
--- NOTE | 2021-05-22 15:29 | Emergency Department Note ---
Impression & Plan Atrial fibrillation with rapid ventricular response, Chest pain ED Provider Note NAME: PAULIE REY AGE: 61 SEX: M : 1960 ARRIVES VIA: Walk-In INFORMANT: Patient, ED PROVIDER(S): Taco Funez DO CHIEF COMPLAINT: Chest pain HPI: The patient is a 61-year-old male who presented to the emergency department for an evaluation of chest pain. The patient describes anterior chest pain that occurred acutely while he was at rest. The patient states he also noticed that he is having palpitations. The patient denies having any fever. He did have a recent URI a couple weeks ago that resolved spontaneously. The patient notices no swelling in his legs. He has had no rashes. He has had no history of atrial fibrillation or other dysrhythmia. He states he did have a history of NSTEMI in the past but when he had a cardiac catheterization he did not get any stents. He states this was approximately 3 years ago. He denies having any recent trauma. The patient states his symptoms are moderate to severe and relieved minimally with oxygen and rest. They do worsen somewhat with exertion. ROS: See above HPI for pertinent positives & negatives. A total of 10 systems reviewed and were otherwise negative. PAST MEDICAL HISTORY: See Below PAST SURGICAL HISTORY: See Below FAMILY HISTORY: See Below SOCIAL HISTORY: See Below HOME MEDICATIONS: See Below ALLERGIES: See Below VITALS: See Below PHYSICAL EXAMINATION: GENERAL: The patient is awake and alert. The patient is somewhat anxious appearing and appears be uncomfortable. EYES: The conjunctivae are clear. The pupils are round and reactive. EARS, NOSE, MOUTH AND THROAT: The nose is without any evidence of any deformity. NECK: The neck is nontender and supple. RESPIRATORY: Normal respiratory effort is noted there is no evidence of wheezing rhonchi or rales CARDIOVASCULAR: Irregular rhythm was noted to auscultation. No definite murmur was noted. GASTROINTESTINAL: The abdomen is soft. Abdomen is nontender. MUSCULOSKELETAL/EXTREMITIES: There is no evidence of gross deformity full range of motion is noted in the hips and shoulders. SKIN: There is no obvious evidence of any rash. There are no petechiae, pallor or cyanosis noted. NEUROLOGIC: Patient is awake alert and oriented x3 strength is symmetric patellar reflexes are 2+ bilaterally MEDICAL DECISION MAKING: The patient is a 61-year-old male who presented to the emergency department for an evaluation of chest pain and palpitations. The patient was found to be in A. fib with RVR. He has never had a history of this before. The patient was treated with IV fluids IV Cardizem and aspirin in the emergency department. He was reevaluated multiple times. The patient's heart rate did improve significantly. After improvement of heart rate the patient symptoms were significantly improved. I discussed the patient's laboratory and radiographic studies with him. Because of his findings I discussed his case with the on-call [facility]. They have agreed to evaluate the patient in the emergency department for further management and disposition. Triage Nursing notes reviewed. Prior medical records reviewed Vital Signs: reviewed and remarkable for tachycardia. Differential diagnosis: Cardiac ischemia, aortic dissection, pulmonary embolism, pneumothorax, pneumonia, pericarditis, myocarditis, esophageal rupture, GERD, cholecystitis, pancreatitis, musculoskeletal, as well as other pathologies. ER treatment provided: See below Diagnostics interpreted by me: ECG: EKG was obtained in the emergency department. My interpretation is atrial fibrillation with RVR at 149 bpm. Diffuse inferior and lateral ST depressions were noted. There were no PVCs noted. This was compared to a tracing from November 292020. Atrial fibrillation as well as the ST segment abnormalities are new compared to the previous tracing. Cardiac Monitoring: An order was placed for continuous cardiac monitoring. The monitor shows a rate of 70 bpm with atrial fib rhythm. Laboratory studies: As stated above and show below. Imaging studies: See below Consultation(s): 1558: I discussed this case with Mayra Oden who is on-call for the [facility]. They will evaluate the patient in the emergency department for further management and disposition. ED COURSE: Procedures: none PDMP:reviewed and no issues Critical Care: I have personally spent greater than 40 minutes of critical care time in the direct management of this patient. This includes bedside care, interpretation of diagnostic studies, and testing, discussion with consultants, patient, and family members, and other required patient management activities. This 40 minutes is in excess of all separately billable procedures. Past Med/Surg History Medical History (Updated 05/22/21 @ 16:08 by Taco Funez DO) Asthma GERD (gastroesophageal reflux disease) Hyperlipidemia Migraine triggered seizures Neurocardiogenic syncope Surgical History H/O colonoscopy History of cardiac catheterization History of esophagogastroduodenoscopy (EGD) Family History Father Stroke, Onset Age: 55 Mother COPD (chronic obstructive pulmonary disease) Other Diabetes Social History Smoking Status: Former smoker Tobacco Type: Cigarettes Second Hand Exposure: No; Hx Alcohol Use: No Hx Substance Use: No Preferred Language: Croatian Communication Ability: Effective Bank Operations Officer Required: No Beliefs That Will Affect Care: None Current Living Situation: Spouse Feels Safe at Home: Yes Assistive Devices: None Allergies Allergies Allergy/AdvReac Type Severity Reaction Status Date / Time azithromycin Allergy Rash Unverified 05/22/21 15:56 Home Meds Home Medications Medication Instructions Recorded Confirmed albuterol sulfate [ProAir HFA] 2 puff INHALATION DAILY PRN 02/12/19 05/22/21 amlodipine 2.5 mg PO HS 02/12/19 05/22/21 montelukast 10 mg PO QAM 02/12/19 05/22/21 pantoprazole 40 mg PO QAM 02/12/19 05/22/21 Ajovy Syringe 1.5 mg SUBCUT .MONTHLY 04/20/19 05/22/21 magnesium 250 mg PO HS 01/19/20 05/22/21 riboflavin (vitamin B2) [Vitamin 100 mg PO QAM 01/19/20 05/22/21 B-2] rosuvastatin [Crestor] 10 mg PO HS 01/19/20 05/22/21 divalproex [Depakote] 250 mg PO HS 11/27/20 05/22/21 aspirin [Aspirin Low Dose] 81 mg PO QAM 05/22/21 05/22/21 Results & Data (ED) Vital Signs Vital Signs - 24 hr 05/22/21 14:37 05/22/21 14:50 05/22/21 14:52 Temperature 37.5 C Temperature Source Oral Pulse Rate 110 H 147 H Pulse Rate from SpO2 Sensor Pulse Rhythm Irregular Respiratory Rate 20 Respiratory Effort / Characteristics Non-Labored Spontaneous Respiratory Depth Normal Blood Pressure 133/112 H Blood Pressure Mean 119 Blood Pressure Position Lying Pulse Oximetry 95 97 Oxygen Delivery Method Room Air Room Air Room Air Sepsis Recent Fever Within 48 Hours No Sepsis New/Unexplained Change in Mental Status N/A Sepsis Action Taken by Nursing No Action Required 05/22/21 15:00 05/22/21 15:07 05/22/21 15:15 Temperature Temperature Source Pulse Rate 108 H 112 H 86 Pulse Rate from SpO2 Sensor 88 90 95 H Pulse Rhythm Respiratory Rate 20 19 23 Respiratory Effort / Characteristics Respiratory Depth Blood Pressure 127/64 113/58 L Blood Pressure Mean 85 76 Blood Pressure Position Pulse Oximetry 94 92 94 Oxygen Delivery Method Sepsis Recent Fever Within 48 Hours Sepsis New/Unexplained Change in Mental Status Sepsis Action Taken by Nursing 05/22/21 15:16 05/22/21 15:30 05/22/21 15:31 Temperature Temperature Source Pulse Rate 154 H 88 78 Pulse Rate from SpO2 Sensor 83 79 80 Pulse Rhythm Respiratory Rate 20 27 H 26 H Respiratory Effort / Characteristics Respiratory Depth Blood Pressure 102/68 Blood Pressure Mean 79 Blood Pressure Position Pulse Oximetry 97 94 94 Oxygen Delivery Method Sepsis Recent Fever Within 48 Hours Sepsis New/Unexplained Change in Mental Status Sepsis Action Taken by [facility] Medications Current Medication List: was personally reviewed by me Laboratory Data Attestation: I reviewed the patient's lab results. Result diagrams: 05/22/21 14:59 05/22/21 14:59 Lab Results 05/22/21 05/22/21 05/22/21 Range/Units 14:59 14:59 14:59 WBC 8.91 (4.8-10.8) K/uL RBC 5.22 (4.7-6.1) M/uL Hgb 15.9 (14.0-18.0) g/dL Hct 46.3 (42-52) % MCV 88.7 (80-100) fL MCH 30.5 (25-34) pg MCHC 34.3 (32-36) g/dL RDW Std Deviation 44.4 (36.4-46.3) fL RDW Coeff of [place] 13.7 (11.5-14.5) % Plt Count 311 (130-400) K/uL MPV 9.2 (7.4-10.4) fL Immature Gran % (Auto) 0.3 % Neut % (Auto) 65.6 % Lymph % (Auto) 21.2 % [place] % (Auto) 11.8 % Eos % (Auto) 0.8 % Baso % (Auto) 0.3 % Neut # (Auto) 5.84 (1.4-6.5) K/uL Lymph # (Auto) 1.89 (1.2-3.4) K/uL [place] # (Auto) 1.05 H (0.11-0.59) K/uL Eos # (Auto) 0.07 (0-0.5) K/uL Baso # (Auto) 0.03 (0-0.2) K/uL Immature Gran # (Auto) 0.03 H (0.00-0.02) K/uL PT 10.3 (9.0-12.0) Seconds INR 1.0 (0.9-1.1) APTT 27.3 (21.0-31.0) Seconds PTT Ratio 1.0 Sodium 140 (136-145) mmol/L Potassium 3.7 (3.5-5.1) mmol/L Chloride 106 (98-107) mmol/L Carbon Dioxide 25 (21-32) mmol/L Anion Gap 9.0 (3-11) BUN 14 (7-18) mg/dl Creatinine 0.78 (0.6-1.4) mg/dl Est Cr Clr Drug Dosing 114.8 ml/min Est GFR ( Amer) 114.5 ml/min Est GFR (Non-Af Amer) 98.8 ml/min BUN/Creatinine Ratio 17.6 (10-20) Glucose 143 H (70-99) mg/dl Calcium 9.1 (8.5-10.1) mg/dl Magnesium 2.3 (1.8-2.4) mg/dl Total Bilirubin 0.6 (0.2-1) mg/dl AST 12 L (15-37) U/L ALT 30 (12-78) U/L Alkaline Phosphatase 82 (45-117) U/L Troponin I < 0.015 (0-0.045) ng/ml Total Protein 7.1 (6.4-8.2) gm/dl Albumin 3.7 (3.4-5.0) gm/dl Globulin 3.4 (2.5-4.0) gm/dl Albumin/Globulin Ratio 1.1 (0.9-2) TSH 0.969 (0.300-4.500) uIu/ml Valproic Acid (50-100) mcg/ml 06/27/21 Range/Units 14:59 WBC (4.8-10.8) K/uL RBC (4.7-6.1) M/uL Hgb (14.0-18.0) g/dL Hct (42-52) % MCV (80-100) fL MCH (25-34) pg MCHC (32-36) g/dL RDW Std Deviation (36.4-46.3) fL RDW Coeff of [place] (11.5-14.5) % Plt Count (130-400) K/uL MPV (7.4-10.4) fL Immature Gran % (Auto) % Neut % (Auto) % Lymph % (Auto) % [place] % (Auto) % Eos % (Auto) % Baso % (Auto) % Neut # (Auto) (1.4-6.5) K/uL Lymph # (Auto) (1.2-3.4) K/uL [place] # (Auto) (0.11-0.59) K/uL Eos # (Auto) (0-0.5) K/uL Baso # (Auto) (0-0.2) K/uL Immature Gran # (Auto) (0.00-0.02) K/uL PT (9.0-12.0) Seconds INR (0.9-1.1) APTT (21.0-31.0) Seconds PTT Ratio Sodium (136-145) mmol/L Potassium (3.5-5.1) mmol/L Chloride (98-107) mmol/L Carbon Dioxide (21-32) mmol/L Anion Gap (3-11) BUN (7-18) mg/dl Creatinine (0.6-1.4) mg/dl Est Cr Clr Drug Dosing ml/min Est GFR ( Amer) ml/min Est GFR (Non-Af Amer) ml/min BUN/Creatinine Ratio (10-20) Glucose (70-99) mg/dl Calcium (8.5-10.1) mg/dl Magnesium (1.8-2.4) mg/dl Total Bilirubin (0.2-1) mg/dl AST (15-37) U/L ALT (12-78) U/L Alkaline Phosphatase (45-117) U/L Troponin I (0-0.045) ng/ml Total Protein (6.4-8.2) gm/dl Albumin (3.4-5.0) gm/dl Globulin (2.5-4.0) gm/dl Albumin/Globulin Ratio (0.9-2) TSH (0.300-4.500) uIu/ml Valproic Acid 23 L (50-100) mcg/ml Administered Medications Discontinued Medications Aspirin (Aspirin Chew 324 Mg) 324 mg PO NOW STA Stop: 05/22/21 14:53 Last Admin: 05/22/21 15:07 Dose: 324 mg Documented by: [id number] Diltiazem HCl (Diltiazem Hcl 5 Mg/Ml 5 Ml Vial) 20 mg IV NOW STA Stop: 05/22/21 14:53 Last Admin: 05/22/21 15:07 Dose: 20 mg Documented by: [id number] Cosigned by: [id number] Sodium Chloride (Nss) 500 mls @ 999 mls/hr IV .Q31M MIKKI Stop: 05/22/21 15:30 Last Infusion: 05/22/21 15:36 Dose: 0 mls/hr Documented by: [id number] Admin: 05/22/21 15:08 Dose: 999 mls/hr Documented by: [id number] Imaging Data Radiologist's Impression: Chest X-Ray 05/22/21 14:52 SINGLE VIEW CHEST CLINICAL HISTORY: Generalized weakness. FINDINGS: An AP, portable, upright chest radiograph is compared to study dated 11/30/2020. The heart is top normal for projection. The mediastinal contour is within normal limits. The lungs and pleural spaces are clear. No pneumothorax is seen. The bony thorax is grossly intact. IMPRESSION: No active disease in the chest. ACT 112: Negative or not required by law. Electronically signed by: Joce Luis M.D. 05/22/2021 3:24 PM Discharge Plan Visit Data Chief Complaint: Chest Pain Stated Complaint: CHEST PAIN, NAUSEA,DIZZY ED Provider: Taco Funez Discharge Problem: Atrial fibrillation with rapid ventricular response, Chest pain Patient Disposition: Being Evaluated by Hospitalist Condition: Good Forms Stand Alone Forms: My [facility] [employer] Prescriptions Prescriptions: No Action amlodipine 5 mg tablet 2.5 mg PO HS RF: 0 pantoprazole 40 mg tablet,delayed release (DR/EC) 40 mg PO QAM RF: 0 montelukast 10 mg tablet 10 mg PO QAM RF: 0 albuterol sulfate [ProAir HFA] 90 mcg/actuation HFA aerosol inhaler 2 puff Inhalation DAILY PRN (Reason: Shortness Of Breath) RF: 0 Ajovy Syringe 225 mg/1.5 mL syringe 1.5 mg subcut .MONTHLY RF: 0 rosuvastatin [Crestor] 10 mg tablet 10 mg PO HS RF: 0 riboflavin (vitamin B2) [Vitamin B-2] 100 mg Tablet 100 mg PO QAM RF: 0 magnesium 250 mg Tablet 250 mg PO HS RF: 0 divalproex [Depakote] 250 mg tablet,delayed release (DR/EC) 250 mg PO HS RF: 0 aspirin [Aspirin Low Dose] 81 mg Tablet,Delayed Release (Dr/Ec) 81 mg PO QAM RF: 0 Referrals Referrals: Francy Macias DO [Primary Care Provider] - Discharge Problem: Chest pain Qualifiers: Chest pain type: unspecified Qualified Code(s): R07.9 - Chest pain, unspecified
[2021-05-22 15:40] LABS: Albumin Globulin Ratio 1.1 (0.9-2); Alkaline Phosphatase 82 U/L (45-117); Bilirubin,Total 0.6 mg/dl (0.2-1); Globulin 3.4 gm/dl (2.5-4.0); Thyroid Stimulating Hormone 0.969 uIu/ml (0.300-4.500); Total Protein 7.1 gm/dl (6.4-8.2); Troponin I < 0.015 ng/ml (0-0.045)
[2021-05-22] MEDS ORDERED: POTASSIUM CHLORIDE CRTAB 20 MEQ TABCR PO STA (16:27)
--- NOTE | 2021-05-22 16:27 | History & Physical Report ---
Date of Service May 22, 2021 Assessment & Plan (1) Atrial fibrillation with rapid ventricular response: This is a 61yo M with a PMH of dyslipidemia, asthma and complex migraines who presents with chest pain and lightheadedness that began earlier today and was found to have A fib with RVR. EKG revealed A Fib with RVR @ 149 bpm HR improved to 70-80s following 20mg IV bolus of Diltiazem in ER Still feeling fatigued but otherwise improved Electrolytes and TSH WNL, no caffeine or alcohol use, recent URI on prednisone taper with increased use of albuterol rescue inhaler likely contributing Transition to PO Lopressor 25mg BID IV heparin standard no bolus while inpatient [id number] score 1 (borderline HTN) Routine cardiology consult Monitor on tele, 2D echo (2) Chest pain: CP resolved once A fib rate controlled in ER Initial troponin negative Will repeat ECG once on floor Monitor on tele, trend troponin (3) Migraine triggered seizures: Complex migraines, follows with Dr. Curry Continue Depakote HS, due for SQ Ajovy today (missed dose) (4) Asthma: Albuterol inh PRN (5) Hyperlipidemia: Continue statin DVT Ppx: IV heparin Code status: FULL PCP: Colleen Dispo: Observation in PCU Patient seen in collaboration with Dr. Pennington. Please see addendum. History of Present Illness Chief Complaint: chest pain Primary Care Provider: Francy Macias, This is a 61yo M with a PMH of dyslipidemia, asthma and complex migraines who p resents with chest pain and lightheadedness that began earlier today. Was visiting family earlier today when he developed sudden onset central chest pain with associated lightheadedness. Came to ED for further evaluation. EKG revealed A Fib with RVR @ 149 bpm. Was given 20mg IV bolus of diltiazem and HR improved to 70-80s. Chest pain resolved. Still feeling fatigued but otherwise improved. Denies any personal history of atrial fibrillation. Does not drink caffeine or alcohol. Did recently have URI 2 weeks ago for which he completed prednisone taper last week. Has been using albuterol inhaler a few times a day for the past few weeks in setting of URI, which is more frequently than he had been using inhaler in the past. Denies use of decongestants. Using Claritin PRN. Has been seen by Dr. Johnson in the past for history of neurocardiogenic syncope and non cardiac chest pain - cardiac catheterization from 01/2018 at [facility] showed normal coronary arteries noted at that time. Currently resting comfortably. Denies fever, chills, headache, lightheadedness, visual changes, sore throat, cough, chest pain, palpitations, shortness of breath, abdominal pain, nausea, vomiting, dysuria, constipation or diarrhea. Allergies Allergy/AdvReac Type Severity Reaction Status Date / Time azithromycin Allergy Rash Unverified 05/22/21 15:56 Home Medications Medication Instructions Recorded Confirmed Type albuterol sulfate [ProAir HFA] 2 puff INHALATION DAILY PRN 02/12/19 05/22/21 History amlodipine 2.5 mg PO DAILY 02/12/19 05/22/21 History montelukast 10 mg PO QAM 02/12/19 05/22/21 History pantoprazole 40 mg PO QAM 02/12/19 05/22/21 History Ajovy Syringe 1.5 mg SUBCUT .MONTHLY 04/20/19 05/22/21 History riboflavin (vitamin B2) [Vitamin 100 mg PO QAM 01/19/20 05/22/21 History B-2] rosuvastatin [Crestor] 10 mg PO HS 01/19/20 05/22/21 History divalproex [Depakote] 250 mg PO HS 11/27/20 05/22/21 History aspirin [Aspirin Low Dose] 81 mg PO QAM 05/22/21 05/22/21 History magnesium oxide 400 mg PO DAILY 05/22/21 05/22/21 History Past Med/Surg History Medical History Asthma GERD (gastroesophageal reflux disease) Hyperlipidemia Migraine triggered seizures Neurocardiogenic syncope Surgical History H/O colonoscopy History of cardiac catheterization History of esophagogastroduodenoscopy (EGD) Family History Father Stroke, Onset Age: 55 Mother COPD (chronic obstructive pulmonary disease) Other Diabetes Social History Smoking Status: Former smoker Tobacco Type: Cigarettes Second Hand Exposure: No; Hx Alcohol Use: No Hx Substance Use: Yes Preferred Language: Yakut Communication Ability: Effective Customer Energy Specialist Required: No Beliefs That Will Affect Care: None Current Living Situation: Spouse Other Information That Helps Us Care for You: No Feels Safe at Home: Yes Safety Concerns: Feels Safe At This Time Assistive Devices: Glasses Review of Systems Review of Systems: At least ten systems reviewed and negative except as noted in the HPI. Physical Exam Physical Exam: General Appearance: WD/WN, vitals as above, NAD, sitting up in bed, pleasant, conversing easily Head: normocephalic, atraumatic Eyes: normal inspection, PERRL, conjunctivae normal, anicteric sclerae ENT: external ear and nose normal, oropharynx normal Neck: normal visual inspection, trachea midline, no thyromegaly Respiratory: normal respiratory effort, lungs clear to auscultation, no wheeze, rales, rhonchi. No accessory muscle use Cardiovascular: irregular rate & rhythm, no murmur appreciated, normal peripheral pulses, no BLE edema. Vessels: no JVD Chest: normal inspection of chest Abdomen/GI: normal bowel sounds, soft, nontender, no hepatosplenomegaly Extremities/Musculoskeletal: no cyanosis or clubbing, extremities motor strength 5/5 Neurologic: PERRL, EOMI, accommodation nl, no face palsy, no dysarthria, CN's II-XI intact bilaterally and moves all extremities Psychiatric: A+Ox3, euthymic affect Skin: no rashes, normal color, warm/dry Results & Data Results & Data ([facility]) Vital Signs (Past 12 Hours) Vital Signs Temp Pulse Resp BP Pulse Ox 05/22/21 15:31 78 26 H 94 05/22/21 15:30 88 27 H 102/68 94 05/22/21 15:16 154 H 20 97 05/22/21 15:15 86 23 113/58 L 94 05/22/21 15:07 112 H 19 92 05/22/21 15:00 108 H 20 127/64 94 05/22/21 14:52 147 H 97 05/22/21 14:37 37.5 C 110 H 20 133/112 H 95 Laboratory Results Short CBC 05/22/21 Range/Units 14:59 WBC 8.91 (4.8-10.8) K/uL Hgb 15.9 (14.0-18.0) g/dL Hct 46.3 (42-52) % Plt Count 311 (130-400) K/uL BMP 05/22/21 14:59 Sodium 140 Potassium 3.7 Chloride 106 Carbon Dioxide 25 BUN 14 Creatinine 0.78 Glucose 143 H Calcium 9.1 Cardiac Enzymes 05/22/21 Range/Units 14:59 Troponin I < 0.015 (0-0.045) ng/ml Liver Function 05/22/21 Range/Units 14:59 Total Bilirubin 0.6 (0.2-1) mg/dl AST 12 L (15-37) U/L ALT 30 (12-78) U/L Alkaline Phosphatase 82 (45-117) U/L Albumin 3.7 (3.4-5.0) gm/dl Diagnostic Findings Chest X-Ray 05/22/21 14:52 SINGLE VIEW CHEST CLINICAL HISTORY: Generalized weakness. FINDINGS: An AP, portable, upright chest radiograph is compared to study dated 11/30/2020. The heart is top normal for projection. The mediastinal contour is within normal limits. The lungs and pleural spaces are clear. No pneumothorax is seen. The bony thorax is grossly intact. IMPRESSION: No active disease in the chest. ACT 112: Negative or not required by law. Electronically signed by: Joce Luis M.D. 05/22/2021 3:24 PM ECG Rhythm: atrial fibrillation Code Status & VTE Plan VTE Prophylaxis Plan VTE Prophylaxis will be ordered: Yes Supervising Physician Co-Signing Physician Notes Patient seen and examined by me, care coordinated with Mayra Oden PA-C, please refer the note above for further detail. Patient is a 61-year-old male, who presented with chest pain, lightheadedness, and was found to be in A. fib with RVR. Received 20 IV of diltiazem in ER, which improved his heart rate significantly. Patient denies any caffeine, alcohol or any other initiating factor however he does report URI about 2 weeks ago and finished prednisone taper 1 week ago. Still has light occasional cough without any sputum production. Some increased use of albuterol possibly contributing Currently heart rate in 70s. Pt denies any more chest pain, much improved. No shortness of breath. He is sitting up in the bed, in no acute distress. He is alert and oriented answering questions appropriately. Heart sounds irregular. Lung sounds clear to auscultation bilaterally without any wheezing rhonchi or crackles. Abdomen soft, nontender nondistended. There is no lower extremity edema. Moves extremities spontaneously without difficulty. We will start on PO beta-beverley, discussed anticoagulation with the patient. Further evaluation by cardiology tomorrow. Hallie Pennington MD (1) Chest pain Chest pain type: unspecified Qualified Code(s): R07.9 - Chest pain, unspecified
[2021-05-22] MEDS ORDERED: POLYETHYLENE (MIRALAX) 17 GM PACK PO PRN (18:06)
[2021-05-22] MEDS ORDERED: ONDANSETRON INJ 2 MG/ML 2 ML VIAL IV PRN (18:06)
[2021-05-22] MEDS ORDERED: ACETAMINOPHEN 325 MG TAB PO PRN (18:06)
[2021-05-22] MEDS ORDERED: ALBUTEROL HFA 8 GM INHALER INH PRN (18:15)
[2021-05-22] MEDS ORDERED: Heparin IV Adult Wt-Based Standard *NO* Bolus Protocol IV SCH (20:00)
[2021-05-22] MEDS: HEPARIN SODIUM/DEXTROSE 25,000 UNITS/500 ML BAG IV SCH (20:45)
[2021-05-22] MEDS: DIVALPROEX DELAY RELEASE 250 MG TABEC PO SCH (20:47)
[2021-05-22] MEDS: METOPROLOL TARTRATE 25 MG TAB PO SCH (20:47)
[2021-05-22] MEDS: ROSUVASTATIN CALCIUM 10 MG TAB PO SCH (20:48)
[2021-05-22 21:17] LABS: Appearance Urine Clear (Clear); Bilirubin Urine Negative (Negative); Blood Urine Negative (Negative); Color Urine Yellow; Glucose Urine UA Negative (Negative); Ketones Urine Negative (Negative); Leukocyte Esterase Urine Negative (Negative); Nitrite Urine Negative (Negative); Protein Urine Negative (Negative); Specific Gravity Urine 1.008 (1.000-1.030); Urobilinogen Urine Negative (Negative); pH Urine 7.5 (4.5-7.5)
[2021-05-23 03:29] LABS: Hemoglobin 14.9 g/dL (14.0-18.0); Mean Corpuscular Hemoglobin 30.3 pg (25-34); Mean Corpuscular Hgb Conc 33.9 g/dL (32-36); Mean Corpuscular Volume 89.6 fL (80-100); Mean Platelet Volume 9.4 fL (7.4-10.4); Platelet Count 297 K/uL (130-400); RDW Coefficient of Variation 13.8 % (11.5-14.5); RDW Standard Deviation 45.3 fL (36.4-46.3); Red Blood Count 4.91 M/uL (4.7-6.1); White Blood Count 9.59 K/uL (4.8-10.8)
[2021-05-23 03:47] LABS: Partial Thromboplastin Ratio 3.4
[2021-05-23 03:53] LABS: BUN Creatinine Ratio 15.2 (10-20); Calcium 8.7 mg/dl (8.5-10.1); Creatinine Clr Calc Pharmacy 105.7 ml/min; Est GFR (African American) 111.1 ml/min; Est GFR (Non-African American) 95.8 ml/min; Partial Thromboplastin Time 88.5 Seconds (21.0-31.0); Potassium 4.2 mmol/L (3.5-5.1)
[2021-05-23] MEDS: ASPIRIN 81 MG ECTAB PO SCH (08:00)
[2021-05-23] MEDS: PANTOprazole 40 MG TAB PO SCH (08:00)
[2021-05-23] MEDS: MAGNESIUM OXIDE 400 MG TAB PO SCH (08:00)
[2021-05-23] MEDS: METOPROLOL TARTRATE 25 MG TAB PO SCH ×2 (08:00→19:56)
[2021-05-23] MEDS: MONTELUKAST SODIUM 10 MG TABLET PO SCH (08:00)
--- NOTE | 2021-05-23 08:00 | Hospitalist Progress Note ---
Date of Service May 23, 2021 Assessment & Plan (1) Atrial fibrillation with rapid ventricular response: This is a 61yo M with a PMH of dyslipidemia, asthma and complex migraines who presents with chest pain and lightheadedness and was found to have A fib with RVR. EKG revealed A Fib with RVR @ 149 bpm in the ED HR improved to 70-80s following 20mg IV bolus of Diltiazem in ER Still feeling fatigued but otherwise improved Electrolytes and TSH WNL, no caffeine or alcohol use, recent URI on prednisone taper with increased use of albuterol rescue inhaler likely contributing Transitioned to PO Lopressor 25mg BID IV heparin standard no bolus while inpatient [id number] score 1 (borderline HTN) Monitor K, Mg, keep K >4, Mg>2 Monitor on tele Cardiology consult Echo - A. fib during examination. Normal LV chamber size with mild concentric LVH. Normal LV systolic function, EF 55 to 60%. No segmental left ventricular wall motion abnormalities are noted. No significant valvular pathology. Normal left atrial size. 05/23 - patient converted to sinus rhythm this morning. Will repeat EKG Further recommendations per cardiology (2) Chest pain: CP resolved once A fib rate controlled in ER troponins negative cont. to monitor (3) Migraine triggered seizures: Complex migraines, follows with Dr. Curry Continue Depakote HS, due for SQ Ajovy on day of amission (missed dose) (4) Asthma: Albuterol inh PRN (5) Hyperlipidemia: Continue statin DVT Ppx: IV heparin Code status: FULL PCP: Dr. Macias Dispo: PCU Admission and Anticipated Discharge Date Admission Date: May 22, 2021 Subjective Patient seen in follow-up of A. fib with RVR, chest pain Overnight in A. fib but rate controlled, low 100s, occasionally 100 elevated at 160 when out of bed. Then this morning, converted to sinus rhythm. Currently laying in bed, no acute distress. Denies any chest pain, palpitations, shortness of breath, dizziness or lightheadedness. Overall feels well. Review of Systems Review of Systems: All systems reviewed & are unremarkable except as noted in HPI & below Constitutional: no fever and no chills Respiratory: no cough and no dyspnea Cardiovascular: no chest pain and no palpitations Gastrointestinal: no abdominal pain, no nausea and no vomiting Physical Exam Physical Exam: General Appearance: WD/WN,NAD Head: normocephalic, atraumatic Eyes: normal inspection, PERRL, EOMI ENT: external ear and nose normal, oropharynx normal Neck: normal visual inspection Respiratory: normal respiratory effort, lungs clear to auscultation, no wheeze, rales, rhonchi. No accessory muscle use Cardiovascular: RRR, no murmur appreciated, normal peripheral pulses, no BLE edema. Vessels: no JVD Chest: normal inspection of chest Abdomen/GI: normal bowel sounds, soft, nontender Extremities/Musculoskeletal: extremities motor strength 5/5 Neurologic: PERRL, EOMI, no face palsy, no dysarthria, moves all extremities Psychiatric: A+Ox3, euthymic affect Skin: no rashes, normal color, warm/dry Results & Data Results & Data ([facility]) Vital Signs (Past 12 Hours) Vital Signs Temp Pulse Resp BP Pulse Ox 05/23/21 07:55 36.6 C 81 18 101/72 96 05/23/21 03:00 36.5 C 89 16 105/55 L 96 05/22/21 22:59 36.4 C L 86 18 112/79 94 Laboratory Results 05/23/21 05/23/21 05/23/21 Range/Units 02:59 02:59 02:59 WBC 9.59 (4.8-10.8) K/uL RBC 4.91 (4.7-6.1) M/uL Hgb 14.9 (14.0-18.0) g/dL Hct 44.0 (42-52) % MCV 89.6 (80-100) fL MCH 30.3 (25-34) pg MCHC 33.9 (32-36) g/dL RDW Std Deviation 45.3 (36.4-46.3) fL RDW Coeff of Cheko 13.8 (11.5-14.5) % Plt Count 297 (130-400) K/uL MPV 9.4 (7.4-10.4) fL Immature Gran % (Auto) % Neut % (Auto) % Lymph % (Auto) % [place] % (Auto) % Eos % (Auto) % Baso % (Auto) % Neut # (Auto) (1.4-6.5) K/uL Lymph # (Auto) (1.2-3.4) K/uL [place] # (Auto) (0.11-0.59) K/uL Eos # (Auto) (0-0.5) K/uL Baso # (Auto) (0-0.2) K/uL Immature Gran # (Auto) (0.00-0.02) K/uL PT (9.0-12.0) Seconds INR (0.9-1.1) APTT 88.5 H* (21.0-31.0) Seconds PTT Ratio 3.4 Sodium 140 (136-145) mmol/L Potassium 4.2 (3.5-5.1) mmol/L Chloride 109 H (98-107) mmol/L Carbon Dioxide 27 (21-32) mmol/L Anion Gap 4.0 (3-11) BUN 13 (7-18) mg/dl Creatinine 0.84 (0.6-1.4) mg/dl Est Cr Clr Drug Dosing 105.7 ml/min Est GFR ( Amer) 111.1 ml/min Est GFR (Non-Af Amer) 95.8 ml/min BUN/Creatinine Ratio 15.2 (10-20) Glucose 109 H (70-99) mg/dl Calcium 8.7 (8.5-10.1) mg/dl Magnesium (1.8-2.4) mg/dl Total Bilirubin (0.2-1) mg/dl AST (15-37) U/L ALT (12-78) U/L Alkaline Phosphatase (45-117) U/L Troponin I (0-0.045) ng/ml Total Protein (6.4-8.2) gm/dl Albumin (3.4-5.0) gm/dl Globulin (2.5-4.0) gm/dl Albumin/Globulin Ratio (0.9-2) TSH (0.300-4.500) uIu/ml Urine Color Urine Appearance (Clear) Urine pH (4.5-7.5) Ur Specific Thayer (1.000-1.030) Urine Protein (Negative) Urine Glucose (UA) (Negative) Urine Ketones (Negative) Urine Blood (Negative) Urine Nitrite (Negative) Urine Bilirubin (Negative) Urine Urobilinogen (Negative) Ur Leukocyte Esterase (Negative) Valproic Acid (50-100) mcg/ml COVID-19 Eval Order SARS-CoV-2 (PCR) (Negative) 05/23/21 05/22/21 05/22/21 Range/Units 02:59 20:47 19:57 WBC (4.8-10.8) K/uL RBC (4.7-6.1) M/uL Hgb (14.0-18.0) g/dL Hct (42-52) % MCV (80-100) fL MCH (25-34) pg MCHC (32-36) g/dL RDW Std Deviation (36.4-46.3) fL RDW Coeff of Cheko (11.5-14.5) % Plt Count (130-400) K/uL MPV (7.4-10.4) fL Immature Gran % (Auto) % Neut % (Auto) % Lymph % (Auto) % [place] % (Auto) % Eos % (Auto) % Baso % (Auto) % Neut # (Auto) (1.4-6.5) K/uL Lymph # (Auto) (1.2-3.4) K/uL [place] # (Auto) (0.11-0.59) K/uL Eos # (Auto) (0-0.5) K/uL Baso # (Auto) (0-0.2) K/uL Immature Gran # (Auto) (0.00-0.02) K/uL PT (9.0-12.0) Seconds INR (0.9-1.1) APTT (21.0-31.0) Seconds PTT Ratio Sodium (136-145) mmol/L Potassium (3.5-5.1) mmol/L Chloride (98-107) mmol/L Carbon Dioxide (21-32) mmol/L Anion Gap (3-11) BUN (7-18) mg/dl Creatinine (0.6-1.4) mg/dl Est Cr Clr Drug Dosing ml/min Est GFR ( Amer) ml/min Est GFR (Non-Af Amer) ml/min BUN/Creatinine Ratio (10-20) Glucose (70-99) mg/dl Calcium (8.5-10.1) mg/dl Magnesium (1.8-2.4) mg/dl Total Bilirubin (0.2-1) mg/dl AST (15-37) U/L ALT (12-78) U/L Alkaline Phosphatase (45-117) U/L Troponin I < 0.015 < 0.015 (0-0.045) ng/ml Total Protein (6.4-8.2) gm/dl Albumin (3.4-5.0) gm/dl Globulin (2.5-4.0) gm/dl Albumin/Globulin Ratio (0.9-2) TSH (0.300-4.500) uIu/ml Urine Color Yellow Urine Appearance Clear (Clear) Urine pH 7.5 (4.5-7.5) Ur Specific Thayer 1.008 (1.000-1.030) Urine Protein Negative (Negative) Urine Glucose (UA) Negative (Negative) Urine Ketones Negative (Negative) Urine Blood Negative (Negative) Urine Nitrite Negative (Negative) Urine Bilirubin Negative (Negative) Urine Urobilinogen Negative (Negative) Ur Leukocyte Esterase Negative (Negative) Valproic Acid (50-100) mcg/ml COVID-19 Eval Order SARS-CoV-2 (PCR) (Negative) 05/22/21 05/22/21 05/22/21 Range/Units 16:05 16:05 14:59 WBC (4.8-10.8) K/uL RBC (4.7-6.1) M/uL Hgb (14.0-18.0) g/dL Hct (42-52) % MCV (80-100) fL MCH (25-34) pg MCHC (32-36) g/dL RDW Std Deviation (36.4-46.3) fL RDW Coeff of Cheko (11.5-14.5) % Plt Count (130-400) K/uL MPV (7.4-10.4) fL Immature Gran % (Auto) % Neut % (Auto) % Lymph % (Auto) % [place] % (Auto) % Eos % (Auto) % Baso % (Auto) % Neut # (Auto) (1.4-6.5) K/uL Lymph # (Auto) (1.2-3.4) K/uL [place] # (Auto) (0.11-0.59) K/uL Eos # (Auto) (0-0.5) K/uL Baso # (Auto) (0-0.2) K/uL Immature Gran # (Auto) (0.00-0.02) K/uL PT (9.0-12.0) Seconds INR (0.9-1.1) APTT (21.0-31.0) Seconds PTT Ratio Sodium (136-145) mmol/L Potassium (3.5-5.1) mmol/L Chloride (98-107) mmol/L Carbon Dioxide (21-32) mmol/L Anion Gap (3-11) BUN (7-18) mg/dl Creatinine (0.6-1.4) mg/dl Est Cr Clr Drug Dosing ml/min Est GFR ( Amer) ml/min Est GFR (Non-Af Amer) ml/min BUN/Creatinine Ratio (10-20) Glucose (70-99) mg/dl Calcium (8.5-10.1) mg/dl Magnesium (1.8-2.4) mg/dl Total Bilirubin (0.2-1) mg/dl AST (15-37) U/L ALT (12-78) U/L Alkaline Phosphatase (45-117) U/L Troponin I (0-0.045) ng/ml Total Protein (6.4-8.2) gm/dl Albumin (3.4-5.0) gm/dl Globulin (2.5-4.0) gm/dl Albumin/Globulin Ratio (0.9-2) TSH (0.300-4.500) uIu/ml Urine Color Urine Appearance (Clear) Urine pH (4.5-7.5) Ur Specific Thayer (1.000-1.030) Urine Protein (Negative) Urine Glucose (UA) (Negative) Urine Ketones (Negative) Urine Blood (Negative) Urine Nitrite (Negative) Urine Bilirubin (Negative) Urine Urobilinogen (Negative) Ur Leukocyte Esterase (Negative) Valproic Acid 23 L (50-100) mcg/ml COVID-19 Eval Order Covid19 at [facility] SARS-CoV-2 (PCR) NEGATIVE (Negative) 05/22/21 05/22/21 05/22/21 Range/Units 14:59 14:59 14:59 WBC 8.91 (4.8-10.8) K/uL RBC 5.22 (4.7-6.1) M/uL Hgb 15.9 (14.0-18.0) g/dL Hct 46.3 (42-52) % MCV 88.7 (80-100) fL MCH 30.5 (25-34) pg MCHC 34.3 (32-36) g/dL RDW Std Deviation 44.4 (36.4-46.3) fL RDW Coeff of Cheko 13.7 (11.5-14.5) % Plt Count 311 (130-400) K/uL MPV 9.2 (7.4-10.4) fL Immature Gran % (Auto) 0.3 % Neut % (Auto) 65.6 % Lymph % (Auto) 21.2 % [place] % (Auto) 11.8 % Eos % (Auto) 0.8 % Baso % (Auto) 0.3 % Neut # (Auto) 5.84 (1.4-6.5) K/uL Lymph # (Auto) 1.89 (1.2-3.4) K/uL [place] # (Auto) 1.05 H (0.11-0.59) K/uL Eos # (Auto) 0.07 (0-0.5) K/uL Baso # (Auto) 0.03 (0-0.2) K/uL Immature Gran # (Auto) 0.03 H (0.00-0.02) K/uL PT 10.3 (9.0-12.0) Seconds INR 1.0 (0.9-1.1) APTT 27.3 (21.0-31.0) Seconds PTT Ratio 1.0 Sodium 140 (136-145) mmol/L Potassium 3.7 (3.5-5.1) mmol/L Chloride 106 (98-107) mmol/L Carbon Dioxide 25 (21-32) mmol/L Anion Gap 9.0 (3-11) BUN 14 (7-18) mg/dl Creatinine 0.78 (0.6-1.4) mg/dl Est Cr Clr Drug Dosing 114.8 ml/min Est GFR ( Amer) 114.5 ml/min Est GFR (Non-Af Amer) 98.8 ml/min BUN/Creatinine Ratio 17.6 (10-20) Glucose 143 H (70-99) mg/dl Calcium 9.1 (8.5-10.1) mg/dl Magnesium 2.3 (1.8-2.4) mg/dl Total Bilirubin 0.6 (0.2-1) mg/dl AST 12 L (15-37) U/L ALT 30 (12-78) U/L Alkaline Phosphatase 82 (45-117) U/L Troponin I < 0.015 (0-0.045) ng/ml Total Protein 7.1 (6.4-8.2) gm/dl Albumin 3.7 (3.4-5.0) gm/dl Globulin 3.4 (2.5-4.0) gm/dl Albumin/Globulin Ratio 1.1 (0.9-2) TSH 0.969 (0.300-4.500) uIu/ml Urine Color Urine Appearance (Clear) Urine pH (4.5-7.5) Ur Specific Thayer (1.000-1.030) Urine Protein (Negative) Urine Glucose (UA) (Negative) Urine Ketones (Negative) Urine Blood (Negative) Urine Nitrite (Negative) Urine Bilirubin (Negative) Urine Urobilinogen (Negative) Ur Leukocyte Esterase (Negative) Valproic Acid (50-100) mcg/ml COVID-19 Eval Order SARS-CoV-2 (PCR) (Negative) Medications Administered Current Inpatient Medications Acetaminophen (Acetaminophen 325 Mg Tab) 650 mg PO Q4H PRN PRN Reason: Pain or Fever Stop: 06/21/21 18:05 Albuterol (Albuterol Hfa 8 Gm Inhaler) 2 puffs INH DAILY PRN PRN Reason: Shortness Of Breath Stop: 06/21/21 18:14 Aspirin (Aspirin 81 Mg Ectab) 81 mg PO QAM [facility]KKI Stop: 06/22/21 08:59 Divalproex Sodium (Divalproex Delay Release 250 Mg Tabec) 250 mg PO HS [facility]KKI Stop: 06/21/21 20:59 Last Admin: 05/22/21 20:47 Dose: 250 mg Documented by: Heparin Sodium/Dextrose (Heparin Sodium/Dextrose) 25,000 units in 500 mls @ 25 mls/hr IV .Q20H MIKKI; Protocol Stop: 06/21/21 19:50 Last Titration: 05/23/21 06:56 Dose: 1,250 units/hr, 25 mls/hr Documented by: Magnesium Oxide (Magnesium Oxide 400 Mg Tab) 400 mg PO DAILY MIKKI Stop: 06/22/21 08:59 Metoprolol Tartrate (Metoprolol Tartrate 25 Mg Tab) 25 mg PO BID MIKKI Stop: 06/21/21 20:59 Last Admin: 05/22/21 20:47 Dose: 25 mg Documented by: Montelukast Sodium (Montelukast Sodium 10 Mg Tablet) 10 mg PO QAM [facility] Stop: 06/22/21 08:59 Ondansetron HCl (Ondansetron Inj 2 Mg/Ml 2 Ml Vial) 4 mg IV Q6H PRN PRN Reason: Nausea Stop: 06/21/21 18:05 Last Admin: 05/22/21 21:05 Dose: 4 mg Documented by: Pantoprazole Sodium (Pantoprazole 40 Mg Tab) 40 mg PO QAM [facility] Stop: 06/22/21 08:59 Polyethylene Glycol (Polyethylene (Miralax) 17 Gm Pack) 17 gm PO DAILY PRN PRN Reason: Constipation Stop: 06/21/21 18:05 Rosuvastatin Calcium (Rosuvastatin Calcium 10 Mg Tab) 10 mg PO HS [facility] Stop: 06/21/21 20:59 Last Admin: 05/22/21 20:48 Dose: 10 mg Documented by: (1) Chest pain Chest pain type: unspecified Qualified Code(s): R07.9 - Chest pain, unspecified
[2021-05-23] MEDS ORDERED: NON-FORMULARY MEDICATION (Riboflavin (Vitamin B2) [Vitamin B-2] 100 mg Tablet) PO SCH (09:00)
[2021-05-23] MEDS ORDERED: STAT IV Infusion **Titration per Protocol STA (09:19)
[2021-05-23] MEDS ORDERED: dilTIAZem HCl 5 MG/ML 5 ML VIAL IV STA (09:19)
[2021-05-23] MEDS ORDERED: dilTIAZem HCL 125 MG in DEXTROSE 5% 100 ML IV SCH (09:30)
[2021-05-23 10:33] LABS: Partial Thromboplastin Ratio 2.9
--- NOTE | 2021-05-23 10:55 | Cardiology Consultation ---
Date of Consultation May 23, 2021 Assessment & Plan (1) Atrial fibrillation with rapid ventricular response: (2) Chest pain: (3) Hyperlipidemia: (4) Migraine triggered seizures: (5) GERD (gastroesophageal reflux disease): (6) Neurocardiogenic syncope: The pathophysiology and treatment options for atrial fibrillation were discussed with the patient at great lengths. Luckily, he converted to normal sinus rhythm during my examination. He has been tolerating heparin well and I will transition to oral Eliquis today as well. His heart rates have remained in the 60s since cardioversion and will maintain his current metoprolol dosing. I would like to watch him on telemetry overnight and will likely DC in the a.m. with Eliquis 5 mg p.o. twice daily. The patient is in agreement with the above plan. History of Present Illness Reason for Consultation: New onset atrial fibrillation with rapid ventricular response Requesting Physician: [facility] hospitalist group Attending Physician: Antonio Pennington MD History of Present Illness it was my pleasure to see Mr. Keith in cardiac consultation today May 23, 2021. He is a very pleasant 61-year-old gentleman who routinely follows with Dr. Ashok Johnson of our practice for history of hyperlipidemia. He presents to [facility] on May 22, 2021 with complaints of chest discomfort. He states that he suddenly became lightheaded and developed significant substernal chest discomfort. He described this as a pressure sensation, he alerted his and he was brought in the emergency department. Upon arrival he was found to be in atrial fibrillation with rapid ventricular response. He was given IV Cardizem push and his metoprolol was continued. Heparin was also started for anticoagulation. Overnight he states he has been feeling much better and has not had a recurrences of the chest discomfort or lightheadedness. During my examination the patient spontaneously converted to normal sinus rhythm. Allergies Allergy/AdvReac Type Severity Reaction Status Date / Time azithromycin Allergy Rash Unverified 05/22/21 15:56 Home Medications Medication Instructions Recorded Confirmed Type albuterol sulfate [ProAir HFA] 2 puff INHALATION DAILY PRN 02/12/19 05/22/21 History amlodipine 2.5 mg PO DAILY 02/12/19 05/22/21 History montelukast 10 mg PO QAM 02/12/19 05/22/21 History pantoprazole 40 mg PO QAM 02/12/19 05/22/21 History Ajovy Syringe 1.5 mg SUBCUT .MONTHLY 04/20/19 05/22/21 History riboflavin (vitamin B2) [Vitamin 100 mg PO QAM 01/19/20 05/22/21 History B-2] rosuvastatin [Crestor] 10 mg PO HS 01/19/20 05/22/21 History divalproex [Depakote] 250 mg PO HS 11/27/20 05/22/21 History aspirin [Aspirin Low Dose] 81 mg PO QAM 05/22/21 05/22/21 History magnesium oxide 400 mg PO DAILY 05/22/21 05/22/21 History apixaban [Eliquis] 5 mg PO BID #60 tab 05/23/21 Rx Patient History Medical History Asthma GERD (gastroesophageal reflux disease) Hyperlipidemia Migraine triggered seizures Neurocardiogenic syncope Surgical History H/O colonoscopy History of cardiac catheterization History of esophagogastroduodenoscopy (EGD) Family History Father Stroke, Onset Age: 55 Mother COPD (chronic obstructive pulmonary disease) Other Diabetes Social History Smoking Status: Former smoker Tobacco Type: Cigarettes Second Hand Exposure: No; Hx Alcohol Use: No Hx Substance Use: Yes Preferred Language: [place] Communication Ability: Effective 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 No acute distress. HEENT: Normocephalic, atraumatic. Pupils equal, round and reactive to light and accommodation. Extraocular muscles are intact. Anicteric sclera. Moist mucous membranes. Neck: No JVD. No bruit. Cardiovascular: Regular. No S-4. Normal S-1 and S-2. No S-3. No murmurs, rubs or gallops. Pulmonary: Clear to auscultation bilaterally. No rales, rhonchi, or wheezing. Abdomen: Bowel sounds x 4, soft. No rebound, guarding or tenderness. No organomegaly. Extremities: No clubbing, cyanosis or edema. +2 pedal pulses bilaterally. Skin: Warm and dry. Results & Data ([facility]) Vital Signs (Past 12 Hours) Vital Signs Temp Pulse Pulse Resp BP Pulse Ox 05/23/21 08:48 119 H 05/23/21 07:55 36.6 C 81 18 101/72 96 05/23/21 03:00 36.5 C 89 16 105/55 L 96 05/22/21 22:59 36.4 C L 86 18 112/79 94 (1) Chest pain Chest pain type: unspecified Qualified Code(s): R07.9 - Chest pain, unspecified
[2021-05-23 11:01] LABS: Partial Thromboplastin Time 75.9 Seconds (21.0-31.0)
[2021-05-23] MEDS: HEPARIN SODIUM/DEXTROSE 25,000 UNITS/500 ML BAG IV SCH (15:55)
[2021-05-23] MEDS ORDERED: APIXABAN 5 MG TABLET PO ONE (16:00)
[2021-05-23] MEDS ORDERED: [UNRECOGNIZED DRUG - REMARK] ONE (16:01)
[2021-05-23] MEDS: DIVALPROEX DELAY RELEASE 250 MG TABEC PO SCH (19:56)
[2021-05-23] MEDS: ROSUVASTATIN CALCIUM 10 MG TAB PO SCH (19:56)
[2021-05-24 07:30] LABS: Hematocrit (blood only) 43.5 % (42-52); Hemoglobin 14.6 g/dL (14.0-18.0); Mean Corpuscular Hemoglobin 30.8 pg (25-34); Mean Corpuscular Hgb Conc 33.6 g/dL (32-36); Mean Corpuscular Volume 91.8 fL (80-100); Mean Platelet Volume 9.6 fL (7.4-10.4); Platelet Count 311 K/uL (130-400); RDW Coefficient of Variation 13.9 % (11.5-14.5); RDW Standard Deviation 47.2 fL (36.4-46.3); Red Blood Count 4.74 M/uL (4.7-6.1); White Blood Count 6.99 K/uL (4.8-10.8)
--- NOTE | 2021-05-24 07:48 | Hospitalist Progress Note ---
Date of Service May 24, 2021 Assessment & Plan (1) Atrial fibrillation with rapid ventricular response: This is a 61yo M with a PMH of dyslipidemia, asthma and complex migraines who presents with chest pain and lightheadedness and was found to have A fib with RVR. EKG revealed A Fib with RVR @ 149 bpm in the ED HR improved to 70-80s following 20mg IV bolus of Diltiazem in ER Still feeling fatigued but otherwise improved Electrolytes and TSH WNL, no caffeine or alcohol use, recent URI on prednisone taper with increased use of albuterol rescue inhaler likely contributing Transitioned to PO Lopressor 25mg BID IV heparin standard no bolus while inpatient [id number] score 1 (borderline HTN) Monitor K, Mg, keep K >4, Mg>2 Monitor on tele Cardiology consult Echo - A. fib during examination. Normal LV chamber size with mild concentric LVH. Normal LV systolic function, EF 55 to 60%. No segmental left ventricular wall motion abnormalities are noted. No significant valvular pathology. Normal left atrial size. 05/23 - patient converted to sinus rhythm this morning. repeat EKG Further recommendations per cardiology 05/24 -patient remains in sinus rhythm, switched to Eliquis 5 mg twice daily. Prescription sent to his pharmacy, 0 $ co-pay. Continue metoprolol. Plan for discharge and outpatient follow-up. (2) Chest pain: CP resolved once A fib rate controlled in ER troponins negative cont. to monitor (3) Migraine triggered seizures: Complex migraines, follows with Dr. Curry Continue Depakote HS, due for SQ Ajovy on day of amission (missed dose) (4) Asthma: Albuterol inh PRN (5) Hyperlipidemia: Continue statin DVT Ppx: IV heparin switched to Eliquis Code status: FULL PCP: Dr. Macias Dispo: PCU , plan to [place] home Admission and Anticipated Discharge Date Admission Date: May 23, 2021 Subjective Patient seen in follow-up of A. fib with RVR, chest pain Yesterday morning, spontaneously converted to sinus rhythm. Currently laying in bed, no acute distress. Denies any chest pain, palpitations, shortness of breath, dizziness or lightheadedness. Overall feels well. Tele reviewed - remains in sinus Review of Systems Review of Systems: All systems reviewed & are unremarkable except as noted in HPI & below Constitutional: no fever and no chills Respiratory: no cough and no dyspnea Cardiovascular: no chest pain and no palpitations Gastrointestinal: no abdominal pain, no nausea and no vomiting Physical Exam Physical Exam: General Appearance: WD/WN,NAD Head: normocephalic, atraumatic Eyes: normal inspection, PERRL, EOMI ENT: external ear and nose normal, oropharynx normal Neck: normal visual inspection Respiratory: normal respiratory effort, lungs clear to auscultation, no wheeze, rales, rhonchi. No accessory muscle use Cardiovascular: RRR, no murmur appreciated, normal peripheral pulses, no BLE edema. Vessels: no JVD Chest: normal inspection of chest Abdomen/GI: normal bowel sounds, soft, nontender Extremities/Musculoskeletal: extremities motor strength 5/5 Neurologic: PERRL, EOMI, no face palsy, no dysarthria, moves all extremities Psychiatric: A+Ox3, euthymic affect Skin: no rashes, normal color, warm/dry Results & Data Results & Data ([facility]) Vital Signs (Past 12 Hours) Vital Signs Temp Pulse Pulse Resp BP Pulse Ox 05/24/21 07:27 36.9 C 60 19 109/72 95 05/24/21 03:33 36.3 C L 61 18 109/73 96 05/23/21 23:07 37.0 C 64 18 107/67 93 05/23/21 23:00 65 Laboratory Results 05/24/21 05/24/21 05/23/21 Range/Units 06:40 06:40 09:55 WBC 6.99 (4.8-10.8) K/uL RBC 4.74 (4.7-6.1) M/uL Hgb 14.6 (14.0-18.0) g/dL Hct 43.5 (42-52) % MCV 91.8 (80-100) fL MCH 30.8 (25-34) pg MCHC 33.6 (32-36) g/dL RDW Std Deviation 47.2 H (36.4-46.3) fL RDW Coeff of Cheko 13.9 (11.5-14.5) % Plt Count 311 (130-400) K/uL MPV 9.6 (7.4-10.4) fL APTT 75.9 H* (21.0-31.0) Seconds PTT Ratio 2.9 Sodium 138 (136-145) mmol/L Potassium 4.1 (3.5-5.1) mmol/L Chloride 108 H (98-107) mmol/L Carbon Dioxide 26 (21-32) mmol/L Anion Gap 4.0 (3-11) BUN 14 (7-18) mg/dl Creatinine 0.85 (0.6-1.4) mg/dl Est Cr Clr Drug Dosing 104.2 ml/min Est GFR ( Amer) 110.5 ml/min Est GFR (Non-Af Amer) 95.4 ml/min BUN/Creatinine Ratio 16.2 (10-20) Glucose 102 H (70-99) mg/dl Calcium 8.8 (8.5-10.1) mg/dl Magnesium 2.4 (1.8-2.4) mg/dl Medications Administered Current Inpatient Medications Acetaminophen (Acetaminophen 325 Mg Tab) 650 mg PO Q4H PRN PRN Reason: Pain or Fever Stop: 06/21/21 18:05 Albuterol (Albuterol Hfa 8 Gm Inhaler) 2 puffs INH DAILY PRN PRN Reason: Shortness Of Breath Stop: 06/21/21 18:14 Apixaban (Apixaban 5 Mg Tablet) 5 mg PO BID [facility] Stop: 06/23/21 08:59 Aspirin (Aspirin 81 Mg Ectab) 81 mg PO QAM [facility] Stop: 06/22/21 08:59 Last Admin: 05/23/21 08:00 Dose: 81 mg Documented by: Divalproex Sodium (Divalproex Delay Release 250 Mg Tabec) 250 mg PO HS [facility] Stop: 06/21/21 20:59 Last Admin: 05/23/21 19:56 Dose: 250 mg Documented by: Magnesium Oxide (Magnesium Oxide 400 Mg Tab) 400 mg PO DAILY [facility] Stop: 06/22/21 08:59 Last Admin: 05/23/21 08:00 Dose: 400 mg Documented by: Metoprolol Tartrate (Metoprolol Tartrate 25 Mg Tab) 25 mg PO BID [facility] Stop: 06/21/21 20:59 Last Admin: 05/23/21 19:56 Dose: 25 mg Documented by: Montelukast Sodium (Montelukast Sodium 10 Mg Tablet) 10 mg PO QAM [facility] Stop: 06/22/21 08:59 Last Admin: 05/23/21 08:00 Dose: 10 mg Documented by: Ondansetron HCl (Ondansetron Inj 2 Mg/Ml 2 Ml Vial) 4 mg IV Q6H PRN PRN Reason: Nausea Stop: 06/21/21 18:05 Last Admin: 05/22/21 21:05 Dose: 4 mg Documented by: Pantoprazole Sodium (Pantoprazole 40 Mg Tab) 40 mg PO [facility] Stop: 06/22/21 08:59 Last Admin: 05/23/21 08:00 Dose: 40 mg Documented by: Polyethylene Glycol (Polyethylene (Miralax) 17 Gm Pack) 17 gm PO DAILY PRN PRN Reason: Constipation Stop: 06/21/21 18:05 Rosuvastatin Calcium (Rosuvastatin Calcium 10 Mg Tab) 10 mg PO [facility] Stop: 06/21/21 20:59 Last Admin: 05/23/21 19:56 Dose: 10 mg Documented by: (1) Chest pain Chest pain type: unspecified Qualified Code(s): R07.9 - Chest pain, unspecified
[2021-05-24 07:57] LABS: BUN Creatinine Ratio 16.2 (10-20); Calcium 8.8 mg/dl (8.5-10.1); Creatinine Clr Calc Pharmacy 104.2 ml/min; Est GFR (African American) 110.5 ml/min; Est GFR (Non-African American) 95.4 ml/min; Magnesium 2.4 mg/dl (1.8-2.4); Potassium 4.1 mmol/L (3.5-5.1)
[2021-05-24] MEDS: ASPIRIN 81 MG ECTAB PO SCH (08:37)
[2021-05-24] MEDS: MAGNESIUM OXIDE 400 MG TAB PO SCH (08:37)
[2021-05-24] MEDS: MONTELUKAST SODIUM 10 MG TABLET PO SCH (08:37)
[2021-05-24] MEDS: METOPROLOL TARTRATE 25 MG TAB PO SCH (08:37)
[2021-05-24] MEDS: PANTOprazole 40 MG TAB PO SCH (08:37)
[2021-05-24] MEDS ORDERED: APIXABAN 5 MG TABLET PO SCH (09:00)
--- NOTE | 2021-05-24 10:05 | Discharge Summary ---
Date of Service May 24, 2021 Admission HPI Per Admitting Provider This is a 61yo M with a PMH of dyslipidemia, asthma and complex migraines who presents with chest pain and lightheadedness that began earlier today. Was visiting family earlier today when he developed sudden onset central chest pain with associated lightheadedness. Came to ED for further evaluation. EKG revealed A Fib with RVR @ 149 bpm. Was given 20mg IV bolus of diltiazem and HR improved to 70-80s. Chest pain resolved. Still feeling fatigued but otherwise improved. Denies any personal history of atrial fibrillation. Does not drink caffeine or alcohol. Did recently have URI 2 weeks ago for which he completed prednisone taper last week. Has been using albuterol inhaler a few times a day for the past few weeks in setting of URI, which is more frequently than he had been using inhaler in the past. Denies use of decongestants. Using Claritin PRN. Has been seen by Dr. Johnson in the past for history of neurocardiogenic syncope and non cardiac chest pain - cardiac catheterization from 01/2018 at [facility] showed normal coronary arteries noted at that time. Currently resting comfortably. Denies fever, chills, headache, lightheadedness, visual changes, sore throat, cough, chest pain, palpitations, shortness of breath, abdominal pain, nausea, vomiting, dysuria, constipation or diarrhea. Admission Exam Per Admitting Provider General Appearance: WD/WN, vitals as above, NAD, sitting up in bed, pleasant, conversing easily Head: normocephalic, atraumatic Eyes: normal inspection, PERRL, conjunctivae normal, anicteric sclerae ENT: external ear and nose normal, oropharynx normal Neck: normal visual inspection, trachea midline, no thyromegaly Respiratory: normal respiratory effort, lungs clear to auscultation, no wheeze, rales, rhonchi. No accessory muscle use Cardiovascular: irregular rate & rhythm, no murmur appreciated, normal peripheral pulses, no BLE edema. Vessels: no JVD Chest: normal inspection of chest Abdomen/GI: normal bowel sounds, soft, nontender, no hepatosplenomegaly Extremities/Musculoskeletal: no cyanosis or clubbing, extremities motor strength 5/5 Neurologic: PERRL, EOMI, accommodation nl, no face palsy, no dysarthria, CN's II-XI intact bilaterally and moves all extremities Psychiatric: A+Ox3, euthymic affect Skin: no rashes, normal color, warm/dry Principal Diagnosis New onset A. fib with RVR Discharge Exam General Appearance: WD/WN,NAD Head: normocephalic, atraumatic Eyes: normal inspection, PERRL, EOMI ENT: external ear and nose normal, oropharynx normal Neck: normal visual inspection Respiratory: normal respiratory effort, lungs clear to auscultation, no wheeze, rales, rhonchi. No accessory muscle use Cardiovascular: RRR, no murmur appreciated, normal peripheral pulses, no BLE edema. Vessels: no JVD Chest: normal inspection of chest Abdomen/GI: normal bowel sounds, soft, nontender Extremities/Musculoskeletal: extremities motor strength 5/5 Neurologic: PERRL, EOMI, no face palsy, no dysarthria, moves all extremities Psychiatric: A+Ox3, euthymic affect Skin: no rashes, normal color, warm/dry Discharge Data Allergies Allergy/AdvReac Type Severity Reaction Status Date / Time azithromycin Allergy Rash Unverified 05/22/21 15:56 Consultations 05/22/21 16:06 ED Decision to Admit Stat 05/22/21 18:06 Consult Cardiology Routine Hospital Course (1) Atrial fibrillation with rapid ventricular response: This is a 61yo M with a PMH of dyslipidemia, asthma and complex migraines who presents with chest pain and lightheadedness and was found to have A fib with RVR. EKG revealed A Fib with RVR @ 149 bpm in the ED HR improved to 70-80s following 20mg IV bolus of Diltiazem in ER Still feeling fatigued but otherwise improved Electrolytes and TSH WNL, no caffeine or alcohol use, recent URI on prednisone taper with increased use of albuterol rescue inhaler likely contributing Transitioned to PO Lopressor 25mg BID IV heparin standard no bolus while inpatient [id number] score 1 (borderline HTN) Monitor K, Mg, keep K >4, Mg>2 Monitor on tele Cardiology consult Echo - A. fib during examination. Normal LV chamber size with mild concentric LVH. Normal LV systolic function, EF 55 to 60%. No segmental left ventricular wall motion abnormalities are noted. No significant valvular pathology. Normal left atrial size. 05/23 - patient converted to sinus rhythm this morning. repeat EKG Further recommendations per cardiology 05/24 -patient remains in sinus rhythm, switched to Eliquis 5 mg twice daily. Prescription sent to his pharmacy, 0 $ co-pay. Continue metoprolol. Plan for discharge and outpatient follow-up. (2) Chest pain: CP resolved once A fib rate controlled in ER troponins negative cont. to monitor (3) Migraine triggered seizures: Complex migraines, follows with Dr. Curry Continue Depakote HS, due for SQ Ajovy on day of amission (missed dose) (4) Asthma: Albuterol inh PRN (5) Hyperlipidemia: Continue statin DVT Ppx: IV heparin switched to Eliquis Code status: FULL PCP: Dr. Macias Dispo: PCU , plan to DC home Total Time Total Time Spent Total Time Spent (In Minutes): 40 Total Time Includes: Examination of the Patient, Discharge Planning, Medication Reconciliation and Communication With Other Providers Discharge Plan Discharge Items Patient Disposition: Home - Self-Care Reason For Visit: NEW ONSET AFIB WITH RVR Discharge Diagnosis: New onset A. fib with RVR Condition on Discharge: Good Activity: Per Instructions section Non-emergency contact: Primary Care Provider and Sales Apprentice Call non-emergency contact if: you have any medication questions and your symptoms worsen Follow-up/Referrals: Francy Macias, [Primary Care Provider] - (Date & Time 05/31/2021 11:20 AM Provider Adithya Elkins MD [facility] ) Diet: Heart Healthy Addtl Attending Provider Instructions: Follow-up with your primary care doctor, the appointment was scheduled for you for May 31. You also need to follow-up with cardiology, you will be contacted about the appointment. Take Eliquis, a blood thinner, 5 mg twice a day to prevent stroke. Take metoprolol 25 mg twice a day. Stop taking amlodipine. Pending Studies at Discharge: No Stand-Alone Forms: My [employer], Smoking Cessation Medications and DC Order Prescriptions: New Eliquis 5 mg tablet 5 mg PO BID Qty: 60 RF: 0 metoprolol tartrate 25 mg Tablet 25 mg PO BID Qty: 60 RF: 0 Continued pantoprazole 40 mg tablet,delayed release (DR/EC) 40 mg PO QAM RF: 0 montelukast 10 mg tablet 10 mg PO QAM RF: 0 albuterol sulfate [ProAir HFA] 90 mcg/actuation HFA aerosol inhaler 2 puff Inhalation DAILY PRN (Reason: Shortness Of Breath) RF: 0 Ajovy Syringe 225 mg/1.5 mL syringe 1.5 mg subcut .MONTHLY RF: 0 rosuvastatin [Crestor] 10 mg tablet 10 mg PO HS RF: 0 riboflavin (vitamin B2) [Vitamin B-2] 100 mg Tablet 100 mg PO QAM RF: 0 divalproex [Depakote] 250 mg tablet,delayed release (DR/EC) 250 mg PO HS RF: 0 aspirin [Aspirin Low Dose] 81 mg Tablet,Delayed Release (Dr/Ec) 81 mg PO QAM RF: 0 magnesium oxide 400 mg magnesium Tablet 400 mg PO DAILY RF: 0 Discontinued amlodipine 5 mg tablet 2.5 mg PO DAILY RF: 0 Discharge Orders: Discharge Order (Routine); Ordered 05/24/21 Ordered By: Antonio Pennington Admission Data Admit Date/Time: 05/23/21 10:39 Attending Provider: Antonio Pennington Admit Provider: Antonio Pennington Primary Care Provider: Francy Macias Other Providers: Antonio Pennington ; Curt Mace
--- NOTE | 2021-05-24 10:28 | Cardiology Progress Note ---
Date of Service May 24, 2021 Assessment & Plan (1) Atrial fibrillation with rapid ventricular response: (2) Chest pain: (3) Hyperlipidemia: (4) Migraine triggered seizures: (5) GERD (gastroesophageal reflux disease): (6) Neurocardiogenic syncope: The pathophysiology and treatment options for atrial fibrillation were discussed with the patient at great lengths. Has remained in normal sinus rhythm overnight. Has already received 2 doses of Eliquis without issue. Okay to DC to home from a cardiac standpoint. Discharged home on Eliquis 5 mg p.o. twice daily along with metoprolol tartrate 25 mg p.o. twice daily. My office will call to schedule follow-up with Dr. Johnson as an outpatient in 4 weeks. Admission and Anticipated Discharge Date Admission Date: May 23, 2021 Subjective Patient seen and examined, chart reviewed. States he feels well. No recurrences of chest discomfort or palpitations overnight. Denies shortness of breath, palpitations, lightheadedness, dizziness or syncope. Telemetry reviewed: Normal sinus rhythm/sinus bradycardia without recurrences of atrial fibrillation. Review of Systems Review of Systems: All systems reviewed & are unremarkable except as noted in HPI & below Physical Exam Physical Exam: Physical Exam: General: Awake, alert and oriented x 3. No acute distress. HEENT: Normocephalic, atraumatic. Pupils equal, round and reactive to light and accommodation. Extraocular muscles are intact. Anicteric sclera. Moist mucous membranes. Neck: No JVD. No bruit. Cardiovascular: Regular. No S-4. Normal S-1 and S-2. No S-3. No murmurs, rubs or gallops. Pulmonary: Clear to auscultation bilaterally. No rales, rhonchi, or wheezing. Abdomen: Bowel sounds x 4, soft. No rebound, guarding or tenderness. No organomegaly. Extremities: No clubbing, cyanosis or edema. +2 pedal pulses bilaterally. Skin: Warm and dry. Results & Data ([facility]) Vital Signs (Past 12 Hours) Vital Signs Temp Pulse Pulse Resp BP Pulse Ox 05/24/21 10:21 36.9 C 60 19 109/72 95 05/24/21 09:38 59 L 05/24/21 07:27 36.9 C 60 19 109/72 95 05/24/21 03:33 36.3 C L 61 18 109/73 96 05/23/21 23:07 37.0 C 64 18 107/67 93 05/23/21 23:00 65 (1) Chest pain Chest pain type: unspecified Qualified Code(s): R07.9 - Chest pain, unspecified
--- NOTE | 2021-05-24 11:09 | Electrocardiogram Report ---
Test Reason : Blood Pressure : / mmHG Vent. Rate : 149 BPM Atrial Rate : 144 BPM P-R Int : 000 ms QRS Dur : 092 ms QT Int : 308 ms P-R-T Axes : 000 -22 022 degrees QTc Int : 485 ms Atrial fibrillation with rapid ventricular response Nonspecific ST and T wave abnormality Abnormal ECG When compared with ECG of 29-NOV-2020 13:00, Atrial fibrillation has replaced Sinus rhythm Vent. rate has increased BY [address] now depressed in Anterior leads Confirmed by Javan Bautista ([id number]) on 05/24/2021 11:09:27 AM Referred By: REFERRED SELF Confirmed By:Javan Bautista
--- NOTE | 2021-05-24 11:27 | Electrocardiogram Report ---
Test Reason : Blood Pressure : / mmHG Vent. Rate : 103 BPM Atrial Rate : 108 BPM P-R Int : 000 ms QRS Dur : 092 ms QT Int : 338 ms P-R-T Axes : 000 -13 -06 degrees QTc Int : 442 ms Atrial fibrillation with rapid ventricular response Low voltage QRS Abnormal ECG When compared with ECG of 22-MAY-2021 14:37, (unconfirmed) HR has decreased Confirmed by Javan Bautista ([id number]) on 05/24/2021 11:26:54 AM Referred By: REFERRED SELF Confirmed By:Javan Bautista
--- NOTE | 2021-05-24 16:01 | Electrocardiogram Report ---
Test Reason : Blood Pressure : / mmHG Vent. Rate : 069 BPM Atrial Rate : 069 BPM P-R Int : 150 ms QRS Dur : 096 ms QT Int : 404 ms P-R-T Axes : 054 -13 008 degrees QTc Int : 432 ms Poor data quality, interpretation may be adversely affected Sinus rhythm with occasional Premature ventricular complexes Low voltage QRS Borderline ECG When compared with ECG of 23-MAY-2021 06:05, (unconfirmed) Sinus rhythm has replaced Atrial fibrillation Vent. rate has decreased BY 34 BPM Confirmed by Javan Bautista ([id number]) on 05/24/2021 4:01:27 PM Referred By: REFERRED SELF Confirmed By:Javan Bautista
== END 2021-05-24 10:55 | disposition home or self-care (01) ==
LOC: ED 14:30 → 2S 14:30

== ENCOUNTER 2022-01-17 20:10 | Observation (INO) ==
[2022-01-17 20:59] LABS: Basophils # (auto) 0.04 K/uL (0-0.2); Basophils % (auto) 0.5 %; Eosinophils # (auto) 0.25 K/uL (0-0.5); Eosinophils % (auto) 2.8 %; Hematocrit (blood only) 43.4 % (42-52); Hemoglobin 14.8 g/dL (14.0-18.0); Immature Granulocytes # (auto) 0.02 K/uL (0.00-0.02); Immature Granulocytes % (auto) 0.2 %; Lymphocytes # (auto) 1.89 K/uL (1.2-3.4); Lymphocytes % (auto) 21.4 %; Mean Corpuscular Hgb Conc 34.1 g/dL (32-36); Mean Platelet Volume 9.4 fL (7.4-10.4); Monocytes # (auto) 0.91 K/uL (0.11-0.59); Monocytes % (auto) 10.3 %; Neutrophils # (auto) 5.72 K/uL (1.4-6.5); Neutrophils % (auto) 64.8 %; Platelet Count 287 K/uL (130-400); RDW Coefficient of Variation 13.4 % (11.5-14.5); RDW Standard Deviation 44.5 fL (36.4-46.3); Red Blood Count 4.77 M/uL (4.7-6.1); White Blood Count 8.83 K/uL (4.8-10.8)
[2022-01-17 21:10] LABS: INR 1.3 (0.9-1.1); Partial Thromboplastin Ratio 1.5; Partial Thromboplastin Time 39.7 Seconds (21.0-31.0)
[2022-01-17 21:21] LABS: Troponin I < 0.03 ng/ml (0-0.04)
[2022-01-17 21:22] LABS: Alanine Aminotransferase 24 U/L (7-52); Albumin Globulin Ratio 1.8 (0.9-2); Albumin Level 4.4 gm/dl (3.4-5.0); Alkaline Phosphatase 81 U/L (34-104); Anion Gap 7 (3-11); Aspartate Aminotransferase 17 U/L (13-39); BUN Creatinine Ratio 14.3 (10-20); Bilirubin,Total 0.4 mg/dl (0.2-1.0); Blood Urea Nitrogen 11 mg/dl (6-23); Calcium 9.5 mg/dl (8.5-10.1); Carbon Dioxide 26 mmol/L (21-32); Chloride 105 mmol/L (98-107); Creatinine Clr Calc Pharmacy 116.7 ml/min; Est GFR (African American) 115.1 ml/min; Est GFR (Non-African American) 99.3 ml/min; Globulin 2.4 gm/dl (2.5-4.0); Glucose 156 mg/dl (70-99(Fasting)); Potassium 3.6 mmol/L (3.5-5.1); Sodium 138 mmol/L (136-145); Total Protein 6.8 gm/dl (6.0-8.3)
[2022-01-17] MEDS ORDERED: NITROGLYCERIN 2% OINTMENT 30GM TUBE EXT ONE (22:29)
[2022-01-17] MEDS ORDERED: ASPIRIN 81 MG CHEW PO STA (22:29)
[2022-01-18] MEDS ORDERED: OPTIRAY 320 125ml IV ONE (00:12)
[2022-01-18] MEDS ORDERED: NITROGLYCERIN SL 0.4 MG/TAB TAB SL PRN (03:29)
[2022-01-18] MEDS ORDERED: POLYETHYLENE (MIRALAX) 17 GM PACK PO PRN (03:29)
[2022-01-18] MEDS ORDERED: ACETAMINOPHEN 325 MG TAB PO PRN (03:29)
[2022-01-18] MEDS ORDERED: ONDANSETRON INJ 2 MG/ML 2 ML VIAL IV PRN (03:29)
[2022-01-18] MEDS ORDERED: ALBUTEROL HFA 8 GM INHALER INH PRN (03:45)
[2022-01-18] MEDS ORDERED: RIVAROXABAN 20 MG TAB PO STA (04:06)
--- NOTE | 2022-01-18 04:54 | History and Physical Report ---
DATE OF ADMISSION: 01/18/2022. CHIEF COMPLAINT: Chest pain. HISTORY OF PRESENT ILLNESS: This is a 61-year-old male with past medical history significant for hyperlipidemia, asthma, positional sleep apnea, migraine, history of vasovagal syncope, history of paroxysmal atrial fibrillation diagnosed in April 2021, CHADS2-VASc score was 0, on Eliquis, history of sinus bradycardia, history of mild nonobstructive CAD, cardiac catheterization in January 2018, history of COVID in first week of November 2021, presents with chest pain. The patient states around 7:30 p.m., he has noticed chest pain center of his chest, moderate in severity, no radiation. No dizziness, no nausea or shortness of breath, no sweating. Received aspirin and nitro. Currently, pain is minimal. Denies any headache. No blurred visions, no earache, no runny nose, no sore throat, no cough, no shortness of breath, no abdominal pain. Normal bowel and bladder movements. Currently, resting comfortably and hemodynamically stable. ALLERGIES: TO AZITHROMYCIN. PAST MEDICAL HISTORY: As mentioned above. PAST SURGICAL HISTORY: Colonoscopy, EGD, cardiac catheterization. MEDICATIONS: The patient is on Tylenol 300 mg p.o. q. 6 hours p.r.n., Ajovy syringe 1.5 subcutaneous monthly, albuterol 2 puffs inhalation daily p.r.n., aspirin 81 mg p.o. daily, Depakote 250 mg p.o. at bedtime, magnesium 400 mg p.o. a.m., metoprolol tartrate 25 mg p.o. b.i.d., montelukast 10 mg p.o. a.m., Protonix 40 mg p.o. daily, riboflavin 100 mg p.o. a.m., Xarelto 20 mg p.o. a.m., Crestor 20 mg p.o. at bedtime. FAMILY HISTORY: Significant for mother had asthma, diabetes. Father has stroke, diabetes. Brother has diabetes. SOCIAL HISTORY: . Quit smoking in 1981, prior to that smoked 0.25 packs a day for 2 years. No alcohol use currently. No drug use. REVIEW OF SYSTEMS: As per HPI. Rest of the review of systems is negative. PHYSICAL EXAMINATION: GENERAL: The patient is of moderate built, not in acute distress. VITAL SIGNS: Temperature 36.7, pulse 71, respiratory rate 16, blood pressure 123/75, oxygen 97% on room air. HEENT: Pupils equal, round and reactive to light. Oral mucosa moist. NECK: No JVD, no neck masses. CARDIOVASCULAR: S1 and S2 heard. Regular rate and rhythm. No murmur, no gallop. RESPIRATORY SYSTEM: Normal AP diameter. No accessory muscle use. No wheezing, no crackles. ABDOMEN: Soft, bowel sounds present, nontender, no distention. CENTRAL NERVOUS SYSTEM: Cranial nerves II through XII are grossly intact, nonfocal. EXTREMITIES: No edema, no erythema. LABORATORY DATA: WBC 8.8, hemoglobin 14.8, hematocrit 43.4, platelets 287. PT 13, INR 1.3, APTT 20, creatinine 0.7. Sodium 138, potassium 3.6, chloride 105, bicarbonate 26, BUN 11, creatinine 0.7, serum glucose 156, calcium 9.5, total bilirubin 0.4, AST 17, ALT 24, alkaline phosphatase 81, troponin I less than 0.03. SARS-CoV-2 RNA negative. IMAGING DATA: CT of the chest on preliminary report unremarkable. Chest x-ray unremarkable. EKG: Sinus rhythm with occasional PVCs at a rate of 76, nonspecific T-wave abnormalities. ASSESSMENT AND PLAN: This is a 61-year-old male who presents with chest pain. 1. Chest pain, history of mild nonobstructive CAD. Initial workup negative. We will keep him n.p.o. and serial enzymes, echocardiogram. Repeat EKG and consult cardiology in the a.m. for further recommendation. Monitor in the fypio tele. 2. History of paroxysmal atrial fibrillation, on metoprolol and Xarelto. We will monitor. 3. History of gastroesophageal reflux disease, on Protonix. 4. History of hyperlipidemia, on statin. 5. History of asthma, currently stable. Continue home medications. 6. History of migraine. Continue home medications. 7. Deep venous thrombosis prophylaxis. Sequential compression devices. DISPOSITION: Observe in [employer] by [employer]. PT/OT prior to discharge. Social service to help with discharge planning. Level 1 full code. Job ID: [id number] [facility]
[2022-01-18 07:10] LABS: Basophils # (auto) 0.05 K/uL (0-0.2); Basophils % (auto) 0.8 %; Eosinophils # (auto) 0.25 K/uL (0-0.5); Hematocrit (blood only) 41.9 % (42-52); Hemoglobin 13.9 g/dL (14.0-18.0); Immature Granulocytes # (auto) 0.02 K/uL (0.00-0.02); Immature Granulocytes % (auto) 0.3 %; Lymphocytes # (auto) 1.63 K/uL (1.2-3.4); Mean Corpuscular Hemoglobin 30.3 pg (25-34); Mean Corpuscular Hgb Conc 33.2 g/dL (32-36); Mean Corpuscular Volume 91.3 fL (80-100); Mean Platelet Volume 9.5 fL (7.4-10.4); Monocytes # (auto) 0.72 K/uL (0.11-0.59); Monocytes % (auto) 11.5 %; Neutrophils % (auto) 57.4 %; Platelet Count 258 K/uL (130-400); RDW Coefficient of Variation 13.6 % (11.5-14.5); RDW Standard Deviation 44.7 fL (36.4-46.3); Red Blood Count 4.59 M/uL (4.7-6.1); White Blood Count 6.27 K/uL (4.8-10.8)
--- NOTE | 2022-01-18 07:22 | CT Scan Report ---
CT ANGIOGRAPHY OF THE CHEST, PULMONARY EMBOLUS PROTOCOL CLINICAL HISTORY: Chest pain. Recent covid infection. COMPARISON STUDY: Chest radiograph November 30, 2021 and January 17, 2022. TECHNIQUE: Following IV administration of 94 mL of Optiray, helical axial images of the chest were ob tained utilizing the pulmonary embolus protocol. Maximal intensity projections and sagittal and robles nal reformats were viewed on an independent 3D workstation. IV contrast was administered without com plication. Automated exposure control was utilized for the study. A dose lowering technique was uti lized adhering to the principles of ALARA. CT DOSE: 519.52 mGy.cm FINDINGS: No pulmonary emboli are identified. Size of the heart is at the upper limits of normal. Th ere is no pericardial effusion. No enlarged thoracic lymph nodes are present. There is no thoracic ao rtic dissection. Mild subpleural opacities favor atelectasis atelectasis. There is no consolidation t o suggest pneumonia. No pneumothorax or pleural effusion is noted. Mild diffuse bronchial wall thicke brandi is present. No acute fracture or suspicious lesion is identified within visual portions of the b eugenie thorax. Visualized portions of the upper abdomen are unremarkable. IMPRESSION: 1. No pulmonary emboli identified. 2. No consolidation to suggest pneumonia. 3. Mild bronchial wall thickening. ACT 112: Negative or not required by law. Electronically signed by: Con Daniel M.D. 01/18/2022 7:20 AM
[2022-01-18 07:32] LABS: Troponin I < 0.03 ng/ml (0-0.04)
[2022-01-18 07:39] LABS: Anion Gap 7 (3-11); BUN Creatinine Ratio 15.5 (10-20); Blood Urea Nitrogen 13 mg/dl (6-23); Carbon Dioxide 27 mmol/L (21-32); Chloride 105 mmol/L (98-107); Est GFR (African American) 111.1 ml/min; Est GFR (Non-African American) 95.8 ml/min; Glucose 111 mg/dl (70-99(Fasting)); Magnesium 2.1 mg/dl (1.7-2.4); Potassium 4.3 mmol/L (3.5-5.1); Sodium 139 mmol/L (136-145)
--- NOTE | 2022-01-18 07:59 | XRay Report ---
XR chest 1V portable HISTORY: Atypical Chest Pain COMPARISON: Chest 11/30/2021. FINDINGS: The lungs are clear. Cardiac silhouette is normal in size. No pleural effusions. No pneumot horax. IMPRESSION: No acute process. ACT 112: Negative or not required by law. Electronically signed by: Héctor Valente M.D. 01/18/2022 7:58 AM
[2022-01-18] MEDS ORDERED: MAGNESIUM OXIDE 400 MG TAB PO SCH (09:00)
[2022-01-18] MEDS ORDERED: MONTELUKAST SODIUM 10 MG TABLET PO SCH (09:00)
[2022-01-18] MEDS ORDERED: ASPIRIN 81 MG ECTAB PO SCH (09:00)
[2022-01-18] MEDS ORDERED: NON-FORMULARY MEDICATION (Riboflavin (Vitamin B2) [Vitamin B-2] 100 mg Tablet) PO SCH (09:00)
[2022-01-18] MEDS ORDERED: METOPROLOL TARTRATE 25 MG TAB PO SCH (09:00)
[2022-01-18] MEDS ORDERED: PANTOprazole 40 MG TAB PO SCH (09:00)
[2022-01-18] MEDS ORDERED: DOBUTamine HCL 12.5 MG/ML 20 ML VIAL IV ONE (09:40)
[2022-01-18] MEDS ORDERED: ATROPINE SULFATE 0.1 MG/ML 10ML SYR IV ONE (09:40)
[2022-01-18] MEDS ORDERED: METOPROLOL TARTRATE 1 MG/ML VIAL IV ONE (09:40)
--- NOTE | 2022-01-18 11:10 | Cardiology Consultation ---
Date of Consultation January 18, 2022 Assessment & Plan (1) Chest pain: (2) Paroxysmal atrial fibrillation: (3) Asthma: (4) Neurocardiogenic syncope: 61-year-old male with complex constellation of medical issues as listed including past chest pain without obstructive coronary disease, paroxysmal atrial fibrillation, asthmatic lung disease last evening developed sudden onset of warm flushing and chest pressure pain. Evaluations have not revealed no evidence of myocardial injury or ischemia with negative dobutamine stress echocardiogram this morning. Studies do demonstrate significant resting bradycardia as well as mild wheezing question sequela of recent Covid infection. Recommendations: Discontinue metoprolol tartrate Begin metoprolol succinate 25 mg once daily Given mild hypokalemia would add potassium chloride 10 mEq p.o. daily to her regimen Follow-up with cardiology as originally scheduled 04/17/2022 History of Present Illness Reason for Consultation: Chest pain Requesting Physician: Dr. Nagy Attending Physician: Raghu Nagy MD History of Present Illness Patient is a 61-year-old male with ongoing cardiac issues to include 1. Paroxysmal atrial fibrillation, diagnosed 04/2021, [id number] score of 0, on Eliquis 2. Sinus bradycardia 3. History of neurocardiac syncope 4. Chronic lightheadedness 5. Dyslipidemia 6. Mild nonobstructive CAD per cardiac catheterization 01/2018 7. GERD Patient presents this admission noting last evening having been sitting quietly when developed sensation of hot flushing sensation followed by chest pressure discomfort. Patient was concerned regarding possible recurrence of atrial fibrillation and pain and dyspnea appeared to worsen. He presented to the emergency room and was found to be in sinus rhythm without acute EKG changes though symptoms appear to eased by aspirin and nitrates topically. Patient is referred for further evaluation He denies current symptoms or complaints. Notes no syncope or near syncope. Notes no fevers chills or recurrent infections. Was ill with Covid approximately 1 month ago with slow recovery. Patient does follow his heart rates at home usually in the 50s and 60s. No bleeding difficulties. Allergies Allergy/AdvReac Type Severity Reaction Status Date / Time azithromycin Allergy Anxiety/Bhavik Unverified 01/17/22 22:51 h Home Medications Medication Instructions Recorded Confirmed Type albuterol sulfate 90 mcg/actuation 2 puff INHALATION DAILY PRN 02/12/19 01/17/22 History aerosol inhaler (ProAir HFA) montelukast 10 mg tablet 10 mg PO QAM 02/12/19 01/17/22 History pantoprazole 40 mg tablet,delayed 40 mg PO QAM 02/12/19 01/17/22 History release fremanezumab-vfrm 225 mg/1.5 mL 1.5 mg SUBCUT .MONTHLY 04/20/19 01/17/22 History subcutaneous syringe (Ajovy Syringe) riboflavin (vitamin B2) 100 mg 100 mg PO QAM 01/19/20 01/17/22 History tablet (Vitamin B-2) rosuvastatin 10 mg tablet (Crestor) 20 mg PO HS 01/19/20 01/17/22 History divalproex 250 mg tablet,delayed 250 mg PO HS 11/27/20 01/17/22 History release (Depakote) aspirin 81 mg tablet,delayed 81 mg PO QAM 05/22/21 01/17/22 History release (Aspirin Low Dose) magnesium oxide 400 mg PO QAM 05/22/21 01/17/22 History metoprolol tartrate 25 mg tablet 25 mg PO BID #60 tab 05/24/21 01/17/22 Rx acetaminophen 500 mg tablet 500 mg PO Q6H PRN 07/24/21 01/17/22 History (Tylenol Extra Strength) rivaroxaban 20 mg tablet (Xarelto) 20 mg PO QPM 01/17/22 01/17/22 History Patient History Medical History (Updated 01/18/22 @ 11:19 by Curt Mace MD) Asthma GERD (gastroesophageal reflux disease) Hyperlipidemia Migraine triggered seizures Neurocardiogenic syncope Surgical History H/O colonoscopy History of cardiac catheterization History of esophagogastroduodenoscopy (EGD) Family History Father Stroke, Onset Age: 55 Mother COPD (chronic obstructive pulmonary disease) Other Diabetes Social History Smoking Status: Former smoker Tobacco Type: Cigarettes Second Hand Exposure: No; Do You Dip or Chew Tobacco: No; Hx Alcohol Use: No Hx Substance Use: No Preferred Language: Maldivian Communication Ability: Effective Personal Carer Required: No Beliefs That Will Affect Care: None Current Living Situation: Spouse and Family Other Information That Helps Us Care for You: No Feels Safe at Home: Yes Safety Concerns: Feels Safe At This Time Assistive Devices: Glasses Review of Systems Review of Systems: All systems reviewed & are unremarkable except as noted in HPI & below Physical Exam Constitutional: WD/WN, vitals as above Eyes: PERRL, conjunctivae normal, anicteric sclerae ENMT: external ear and nose normal, oropharynx normal Neck: trachea midline, no thyromegaly Respiratory: normal respiratory effort and + audible wheezes Cardiovascular: Rate/Rhythm: regular rate and regular rhythm Heart Sounds: normal S1 and normal S2; no gallop and no murmur Palpation: normal PMI Vessels: normal carotid upstroke and radial pulses present; no JVD and no carotid bruit Extremities: no edema Gastrointestinal (Abdomen): normal bowel sounds, soft, nontender, no hepatosplenomegaly Musculoskeletal: no cyanosis or clubbing, extremities motor strength 5/5 Skin: no rashes, warm and dry Neurologic: PERRL, EOMI, accommodation nl, no face palsy, no dysarthria Psychiatric: A+Ox3, euthymic affect Results & Data ([facility]) Vital Signs (Past 12 Hours) Vital Signs Temp Pulse Pulse Resp BP BP Pulse Ox 01/18/22 03:58 36.6 C 52 L 15 114/71 96 01/18/22 03:31 54 L 14 98/65 L 96 01/18/22 02:26 71 16 123/75 97 01/18/22 00:50 58 L 24 91/56 L 93 01/18/22 00:02 68 12 103/82 94 01/17/22 23:30 58 L 12 119/77 94 01/17/22 23:18 58 L 17 118/74 94 01/17/22 23:15 67 12 118/74 Laboratory Results Laboratory Results - last 24 hr 01/17/22 01/17/22 01/17/22 20:45 20:45 20:45 WBC 8.83 RBC 4.77 Hgb 14.8 Hct 43.4 MCV 91.0 MCH 31.0 MCHC 34.1 RDW Std Deviation 44.5 RDW Coeff of [place] 13.4 Plt Count 287 MPV 9.4 Immature Gran % (Auto) 0.2 Neut % (Auto) 64.8 Lymph % (Auto) 21.4 [place] % (Auto) 10.3 Eos % (Auto) 2.8 Baso % (Auto) 0.5 Neut # (Auto) 5.72 Lymph # (Auto) 1.89 [place] # (Auto) 0.91 H Eos # (Auto) 0.25 Baso # (Auto) 0.04 Immature Gran # (Auto) 0.02 PT 13.0 H INR 1.3 H APTT 39.7 H PTT Ratio 1.5 Sodium 138 Potassium 3.6 Chloride 105 Carbon Dioxide 26 Anion Gap 7 BUN 11 Creatinine 0.77 Est Cr Clr Drug Dosing 116.7 Est GFR ( Amer) 115.1 Est GFR (Non-Af Amer) 99.3 BUN/Creatinine Ratio 14.3 Glucose 156 H Calcium 9.5 Magnesium Total Bilirubin 0.4 AST 17 ALT 24 Alkaline Phosphatase 81 Troponin I < 0.03 Total Protein 6.8 Albumin 4.4 Globulin 2.4 L Albumin/Globulin Ratio 1.8 SARS-CoV-2, RNA, NAAT 01/17/22 01/18/22 01/18/22 23:25 06:52 06:52 WBC 6.27 RBC 4.59 L Hgb 13.9 L Hct 41.9 L MCV 91.3 MCH 30.3 MCHC 33.2 RDW Std Deviation 44.7 RDW Coeff of [place] 13.6 Plt Count 258 MPV 9.5 Immature Gran % (Auto) 0.3 Neut % (Auto) 57.4 Lymph % (Auto) 26.0 [place] % (Auto) 11.5 Eos % (Auto) 4.0 Baso % (Auto) 0.8 Neut # (Auto) 3.60 Lymph # (Auto) 1.63 [place] # (Auto) 0.72 H Eos # (Auto) 0.25 Baso # (Auto) 0.05 Immature Gran # (Auto) 0.02 PT INR APTT PTT Ratio Sodium 139 Potassium 4.3 Chloride 105 Carbon Dioxide 27 Anion Gap 7 BUN 13 Creatinine 0.84 Est Cr Clr Drug Dosing 107.0 Est GFR ( Amer) 111.1 Est GFR (Non-Af Amer) 95.8 BUN/Creatinine Ratio 15.5 Glucose 111 H Calcium 9.0 Magnesium 2.1 Total Bilirubin AST ALT Alkaline Phosphatase Troponin I < 0.03 Total Protein Albumin Globulin Albumin/Globulin Ratio SARS-CoV-2, RNA, NAAT NEGATIVE 01/18/22 10:51 WBC RBC Hgb Hct MCV MCH MCHC RDW Std Deviation RDW Coeff of [place] Plt Count MPV Immature Gran % (Auto) Neut % (Auto) Lymph % (Auto) [place] % (Auto) Eos % (Auto) Baso % (Auto) Neut # (Auto) Lymph # (Auto) [place] # (Auto) Eos # (Auto) Baso # (Auto) Immature Gran # (Auto) PT INR APTT PTT Ratio Sodium Potassium Chloride Carbon Dioxide Anion Gap BUN Creatinine Est Cr Clr Drug Dosing Est GFR ( Amer) Est GFR (Non-Af Amer) BUN/Creatinine Ratio Glucose Calcium Magnesium Total Bilirubin AST ALT Alkaline Phosphatase Troponin I Pending Total Protein Albumin Globulin Albumin/Globulin Ratio SARS-CoV-2, RNA, NAAT Diagnostic Findings Dobutamine stress echocardiogram today 01/18/2022 2 greater than 90% age- predicted maximal heart rate without ischemia and hyperdynamic LV functio (1) Chest pain Chest pain type: unspecified Qualified Code(s): R07.9 - Chest pain, unspecified
--- NOTE | 2022-01-18 11:52 | Electrocardiogram Report ---
Test Reason : Blood Pressure : / mmHG Vent. Rate : 076 BPM Atrial Rate : 076 BPM P-R Int : 148 ms QRS Dur : 104 ms QT Int : 384 ms P-R-T Axes : 044 -19 -25 degrees QTc Int : 432 ms Sinus rhythm with occasional Premature ventricular complexes Low voltage QRS Nonspecific T wave abnormality Abnormal ECG When compared with ECG of 30-NOV-2021 20:36, Premature ventricular complexes are now Present Nonspecific T wave abnormality, improved in Lateral leads Confirmed by Daljit Gallardo ([id number]) on 01/18/2022 11:52:02 AM Referred By: REFERRED SELF Confirmed By:Cyrus Gallardo
--- NOTE | 2022-01-18 11:54 | Electrocardiogram Report ---
Test Reason : Blood Pressure : / mmHG Vent. Rate : 050 BPM Atrial Rate : 050 BPM P-R Int : 158 ms QRS Dur : 088 ms QT Int : 460 ms P-R-T Axes : 035 -11 -07 degrees QTc Int : 419 ms Sinus bradycardia Low voltage QRS Borderline ECG When compared with ECG of 17-JAN-2022 20:42, (unconfirmed) Premature ventricular complexes are no longer Present Vent. rate has decreased BY 26 BPM Nonspecific T wave abnormality, improved in Anterolateral leads Confirmed by Dajlit Gallardo ([id number]) on 01/18/2022 11:53:59 AM Referred By: REFERRED SELF Confirmed By:Cyrus Gallardo
--- NOTE | 2022-01-18 14:13 | Discharge Summary ---
Date of Service January 18, 2022 Admission HPI Per Admitting Provider DATE OF ADMISSION: 01/18/2022. CHIEF COMPLAINT: Chest pain. HISTORY OF PRESENT ILLNESS: This is a 61-year-old male with past medical history significant for hyperlipidemia, asthma, positional sleep apnea, migrai ne, history of vasovagal syncope, history of paroxysmal atrial fibrillation diagnosed in April 2021, CHADS2-VASc score was 0, on Eliquis, history of sinus bradycardia, history of mild nonobstructive CAD, cardiac catheterization in January 2018, history of COVID in first week of November 2021, presents with chest pain. The patient states around 7:30 p.m., he has noticed chest pain center of his chest, moderate in severity, no radiation. No dizziness, no nausea or shortness of breath, no sweating. Received aspirin and nitro. Currently, pain is minimal. Denies any headache. No blurred visions, no earache, no runny nose, no sore throat, no cough, no shortness of breath, no abdominal pain. Normal bowel and bladder movements. Currently, resting comfortably and hemodynamically stable. ALLERGIES: TO AZITHROMYCIN. PAST MEDICAL HISTORY: As mentioned above. PAST SURGICAL HISTORY: Colonoscopy, EGD, cardiac catheterization. MEDICATIONS: The patient is on Tylenol 300 mg p.o. q. 6 hours p.r.n., Ajovy syringe 1.5 subcutaneous monthly, albuterol 2 puffs inhalation daily p.r.n., aspirin 81 mg p.o. daily, Depakote 250 mg p.o. at bedtime, magnesium 400 mg p.o. a.m., metoprolol tartrate 25 mg p.o. b.i.d., montelukast 10 mg p.o. a.m., Protonix 40 mg p.o. daily, riboflavin 100 mg p.o. a.m., Xarelto 20 mg p.o. a.m., Crestor 20 mg p.o. at bedtime. FAMILY HISTORY: Significant for mother had asthma, diabetes. Father has stroke, diabetes. Brother has diabetes. SOCIAL HISTORY: . Quit smoking in 1981, prior to that smoked 0.25 packs a day for 2 years. No alcohol use currently. No drug use. REVIEW OF SYSTEMS: As per HPI. Rest of the review of systems is negative. Admission Exam Per Admitting Provider GENERAL: The patient is of moderate built, not in acute distress. VITAL SIGNS: Temperature 36.7, pulse 71, respiratory rate 16, blood pressure 123/75, oxygen 97% on room air. HEENT: Pupils equal, round and reactive to light. Oral mucosa moist. NECK: No JVD, no neck masses. CARDIOVASCULAR: S1 and S2 heard. Regular rate and rhythm. No murmur, no gallop. RESPIRATORY SYSTEM: Normal AP diameter. No accessory muscle use. No wheezing, no crackles. ABDOMEN: Soft, bowel sounds present, nontender, no distention. CENTRAL NERVOUS SYSTEM: Cranial nerves II through XII are grossly intact, nonfocal. EXTREMITIES: No edema, no erythema. Principal Diagnosis Chest pain rule out ACS History of mild nonobstructive CAD Discharge Exam GENERAL: Alert and oriented x3. NAD, on RA. HEENT: No pallor, no icterus. Pupils equal, round and reactive to light. Oral mucosa moist. NECK: No JVD, no neck masses. HEART: S1 and S2 heard. Regular rate and rhythm. No murmur, no gallop. RESPIRATORY SYSTEM: Normal AP diameter. No accessory muscle use. No wheezing, no crackles. ABDOMEN: Soft, bowel sounds present, nontender, no distention. CENTRAL NERVOUS SYSTEM: No facial droop. Speech is clear. Obeys simple commands. Moves extremities. EXTREMITIES: No edema, no erythema seen. Discharge Data Allergies Allergy/AdvReac Type Severity Reaction Status Date / Time azithromycin Allergy Anxiety/Bhavik Unverified 01/17/22 22:51 h Consultations 01/18/22 01:34 ED Decision to Admit Stat 01/18/22 08:00 Consult Cardiology Routine Ordered Studies 01/17/22 22:29 CT angio chest PE protocol Urgent Hospital Course (1) Chest pain: 61-year-old male with past medical history significant for hyperlipidemia, asthma, positional sleep apnea, migraine, history of vasovagal syncope, history of paroxysmal atrial fibrillation diagnosed in April 2021, CHADS2-VASc score was 0, on anticoagulation, history of sinus bradycardia, history of mild nonobstructive CAD, cardiac catheterization in January 2018, history of COVID in first week of November 2021, presents with chest pain in the evening prior to arrival. Patient was evaluated by cardiology, cardiac enzyme trends were negative, EKG were WNL, echo and stress test were also WNL. Discussed with cardiology, metoprolol tartrate has been discontinued, metoprolol succinate 25 mg daily added, 10 mEq potassium chloride daily supplementation added. Okay to discharge from cardiology point of view per cardiology. Patient reports feeling better. Patient is hemodynamically stable. Following instructions were communicated at the point of discharge: Follow-up with your primary care physician within a week time. Your heart enzymes and EKG were WNL while in the hospital, cardiology evaluated you and you underwent echocardiogram and a stress test which were also within normal limit, your metoprolol dose has been changed by cardiology while inpatient. One new medication potassium chloride has been added. Get your blood work BMP done in a week time. Maintain follow-up with your cardiology as scheduled on 04/17/2022 Take medications as prescribed. Total Time Total Time Spent Total Time Spent (In Minutes): 33 Discharge Plan Discharge Items Patient Disposition: Home - Self-Care Reason For Visit: CHEST PAIN Discharge Diagnosis: Chest pain rule out ACS History of mild nonobstructive CAD Activity: Resume your previous activity Non-emergency contact: Primary Care Provider Call non-emergency contact if: you have any medication questions, your symptoms worsen, your pain is not controlled and your temperature is above 101 Follow-up/Referrals: Ashok Johnson DO [Him Tech] - (Date & Time 04/17/2022 3:00 PM Provider Ashok Johnson DO Department Cardiology, [facility] ) Francy Macias DO [Primary Care Provider] - (Date & Time 01/26/2022 2:20 PM Provider Francy Maicas DO Department [facility] ) Diet: Heart Healthy Addtl Attending Provider Instructions: Follow-up with your primary care physician within a week time. Your heart enzymes and EKG were WNL while in the hospital, cardiology evaluated you and you underwent echocardiogram and a stress test which were also within normal limit, [facility] One new medication potassium chloride has been added. Get your blood work BMP done in a week time. Maintain follow-up with your cardiology as scheduled on 04/17/2022 Take medications as prescribed. Pending Studies at Discharge: No Stand-Alone Forms: [employer], Smoking Cessation Medications and DC Order Prescriptions: New metoprolol succinate 25 mg tablet extended release 24 hr 25 mg PO DAILY Qty: 30 RF: 0 potassium chloride 10 mEq capsule, extended release 10 meq PO DAILY Qty: 30 RF: 0 Continued pantoprazole 40 mg tablet,delayed release (DR/EC) 40 mg PO QAM RF: 0 montelukast 10 mg tablet 10 mg PO QAM RF: 0 albuterol sulfate [ProAir HFA] 90 mcg/actuation HFA aerosol inhaler 2 puff Inhalation DAILY PRN (Reason: Shortness Of Breath) RF: 0 Ajovy Syringe 225 mg/1.5 mL syringe 1.5 mg subcut .MONTHLY RF: 0 rosuvastatin [Crestor] 10 mg tablet 20 mg PO HS RF: 0 riboflavin (vitamin B2) [Vitamin B-2] 100 mg Tablet 100 mg PO QAM RF: 0 divalproex [Depakote] 250 mg tablet,delayed release (DR/EC) 250 mg PO HS RF: 0 aspirin [Aspirin Low Dose] 81 mg Tablet,Delayed Release (Dr/Ec) 81 mg PO QAM RF: 0 magnesium oxide 400 mg magnesium Tablet 400 mg PO QAM RF: 0 acetaminophen [Tylenol Extra Strength] 500 mg Tablet 500 mg PO Q6H PRN (Reason: Pain) RF: 0 Xarelto 20 mg tablet 20 mg PO QPM RF: 0 Discontinued metoprolol tartrate 25 mg Tablet 25 mg PO BID Qty: 60 RF: 0 Discharge Orders: Discharge Order (Routine); Ordered 01/18/22 Ordered By: Raghu Nagy Admission Data Admit Date/Time: 01/18/22 03:24 Attending Provider: Raghu Nagy Admit Provider: Antonio Myers Primary Care Provider: Francy Macias Other Providers: Antonio Myers ; Lane Castillo ; Ashok Johnson ; Curt Mace ; Tomime Armas ; Michael Morrow ; Adithya Haines ; Carlota Quiñones ; Carmella Astudillo ; Zaria Villarreal ; Corky Anderson
[2022-01-18] MEDS ORDERED: ROSUVASTATIN CALCIUM 20 MG TAB PO SCH (21:00)
[2022-01-18] MEDS ORDERED: RIVAROXABAN 20 MG TAB PO SCH (21:00)
[2022-01-18] MEDS ORDERED: DIVALPROEX EXTENDED RELEASE 250 MG TABCR PO SCH (21:00)
--- NOTE | 2022-01-18 21:36 | Emergency Department Note ---
History of Present Illness General Chief complaint: Chest Pain Stated complaint: CHEST PAINS Time Seen by Provider: 01/17/22 22:10 History of Present Illness Maximum Pain Intensity: 2 This is a 61-year-old male presenting to the emergency department for evaluation of substernal chest pain that began just prior to arrival. The patient was seated at home when he had chest heaviness/squeezing. He became concerned as he does have a history of A. fib and felt that this may have recurred. He follows with [facility] cardiology and had a fairly normal cardiac cath about 4 years ago. The patient did have COVID-19 about a month ago, but feels like he has recovered well. He did have flushing with this episode but no vomiting or abdominal pain. He does not have any recent travel history. He rates his current discomfort a 2/10 and has not taken anything [id number] for symptoms. Home Medications Medication Instructions Recorded Confirmed Type albuterol sulfate 90 mcg/actuation 2 puff INHALATION DAILY PRN 02/12/19 01/17/22 History aerosol inhaler (ProAir HFA) montelukast 10 mg tablet 10 mg PO QAM 02/12/19 01/17/22 History pantoprazole 40 mg tablet,delayed 40 mg PO QAM 02/12/19 01/17/22 History release fremanezumab-vfrm 225 mg/1.5 mL 1.5 mg SUBCUT .MONTHLY 04/20/19 01/17/22 History subcutaneous syringe (Ajovy Syringe) riboflavin (vitamin B2) 100 mg 100 mg PO QAM 01/19/20 01/17/22 History tablet (Vitamin B-2) rosuvastatin 10 mg tablet (Crestor) 20 mg PO HS 01/19/20 01/17/22 History divalproex 250 mg tablet,delayed 250 mg PO HS 11/27/20 01/17/22 History release (Depakote) aspirin 81 mg tablet,delayed 81 mg PO QAM 05/22/21 01/17/22 History release (Aspirin Low Dose) magnesium oxide 400 mg PO QAM 05/22/21 01/17/22 History acetaminophen 500 mg tablet 500 mg PO Q6H PRN 07/24/21 01/17/22 History (Tylenol Extra Strength) rivaroxaban 20 mg tablet (Xarelto) 20 mg PO QPM 01/17/22 01/17/22 History metoprolol succinate 25 mg 25 mg PO DAILY #30 tab 01/18/22 Rx tablet,extended release 24 hr potassium chloride 10 mEq 10 meq PO DAILY #30 cap 01/18/22 Rx capsule,extended release Allergies Allergy/AdvReac Type Severity Reaction Status Date / Time azithromycin Allergy Anxiety/Bhavik Unverified 01/17/22 22:51 h Past Med/Surg History Medical History (Updated 01/18/22 @ 21:36 by Ashok High PA-C) Asthma GERD (gastroesophageal reflux disease) Hyperlipidemia Migraine triggered seizures Neurocardiogenic syncope Surgical History H/O colonoscopy History of cardiac catheterization History of esophagogastroduodenoscopy (EGD) Family History Father Stroke, Onset Age: 55 Mother COPD (chronic obstructive pulmonary disease) Other Diabetes Social History Smoking Status: Former smoker Tobacco Type: Cigarettes Second Hand Exposure: No; Hx Alcohol Use: No Hx Substance Use: No Preferred Language: Moldovan Communication Ability: Effective 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 Beliefs That Will Affect Care: None Current Living Situation: Spouse and Family Feels Safe at Home: Yes Assistive Devices: Glasses Review of Systems A total of 10 systems reviewed and were otherwise negative Physical Exam Vital Signs Vital Signs - 24 hr 01/17/22 23:15 01/17/22 23:18 01/17/22 23:30 Pulse Rate 67 58 L Pulse Rate [Apical] 58 L Pulse Rate from SpO2 Sensor 59 L Respiratory Rate 12 17 12 Blood Pressure 118/74 119/77 Blood Pressure [Right Arm] 118/74 Blood Pressure Mean 88 91 Blood Pressure Mean [Right Arm] 88 Pulse Oximetry 94 94 Oxygen Delivery Method Room Air 01/18/22 00:02 01/18/22 00:50 01/18/22 02:26 Pulse Rate 68 58 L Pulse Rate [Apical] 71 Pulse Rate from SpO2 Sensor 58 L Respiratory Rate 12 24 16 Blood Pressure 103/82 91/56 L Blood Pressure [Right Arm] 123/75 Blood Pressure Mean 89 67 Blood Pressure Mean [Right Arm] 91 Pulse Oximetry 94 93 97 Oxygen Delivery Method Room Air Room Air VITALS: Vitals are noted on the nurse's note and reviewed by myself. Vital signs stable. GENERAL: Well-developed, well-nourished, white male, who is in no acute distress and resting comfortably. Patient is cooperative with the examination. HEAD: Normocephalic atraumatic. EARS: External ear normal. External auditory canals clear, tympanic membranes pearly gunn without erythema or effusion bilaterally. EYES: Pupils equal round and reactive to light and accommodation. Conjunctivae without injection, sclerae without icterus. Extraocular movements intact. NOSE: Patent, turbinates without inflammation or discharge. MOUTH: Mucous membranes moist. Tonsils are not enlarged. Pharynx without erythema, blood, or exudate. Uvula midline. Airway patent. NECK: Supple without nuchal rigidity. No lymphadenopathy. No thyromegaly. Cervical spine is nontender. HEART: Regular rate and rhythm without murmurs gallops or rubs. LUNGS: Clear to auscultation bilaterally without wheezes, rales or rhonchi. No retractions or accessory muscle use. ABDOMEN: Positive normal bowel sounds x 4. Soft, nontender, without masses or o rganomegaly. No guarding or rebound tenderness. MUSCULOSKELETAL: No muscle atrophy, erythema, or edema noted. Full range of motion in all extremities. Course Administered Medications Aspirin (Aspirin 81 Mg Ectab) 81 mg PO [facility] Stop: 02/17/22 08:59 Last Admin: 01/18/22 10:42 Dose: 81 mg Documented by: [id number] Magnesium Oxide (Magnesium Oxide 400 Mg Tab) 400 mg PO [facility] Stop: 02/17/22 08:59 Last Admin: 01/18/22 10:42 Dose: 400 mg Documented by: [id number] Montelukast Sodium (Montelukast Sodium 10 Mg Tablet) 10 mg PO [facility] Stop: 02/17/22 08:59 Last Admin: 01/18/22 10:42 Dose: 10 mg Documented by: [id number] Pantoprazole Sodium (Pantoprazole 40 Mg Tab) 40 mg PO [facility] Stop: 02/17/22 08:59 Last Admin: 01/18/22 10:42 Dose: 40 mg Documented by: [id number] Discontinued Medications Aspirin (Aspirin 81 Mg Chew) 324 mg PO NOW [facility] Stop: 01/17/22 22:30 Last Admin: 01/17/22 23:17 Dose: 324 mg Documented by: [id number] Atropine Sulfate (Atropine Sulfate 0.1 Mg/Ml 10ml Syr) Confirm Administered Dose 2 mg IV .[facility] ONE Stop: 01/18/22 09:41 Last Admin: 01/18/22 10:19 Dose: 0.5 mg Documented by: [id number] Dobutamine HCl (Dobutamine Hcl 12.5 Mg/Ml 20 Ml Vial) Confirm Administered Dose 250 mg IV [facility] Stop: 01/18/22 09:41 Last Admin: 01/18/22 10:20 Dose: 1 dose Documented by: [id number] Ioversol (Optiray 320 125ml) 125 ml IV ONCE ONE Stop: 01/18/22 00:13 Last Admin: 01/18/22 00:13 Dose: 94 ml Documented by: [id number] Metoprolol Tartrate (Metoprolol Tartrate 25 Mg Tab) 25 mg PO BID MIKKI Stop: 02/17/22 08:59 Last Admin: 01/18/22 10:42 Dose: 25 mg Documented by: [id number] Metoprolol Tartrate (Metoprolol Tartrate 1 Mg/Ml Vial) Confirm Administered Dose 10 mg IV .[facility] ONE Stop: 01/18/22 09:41 Last Admin: 01/18/22 10:19 Dose: 5 mg Documented by: [id number] Nitroglycerin (Nitroglycerin 2% Ointment 30gm Tube) 1 inch EXT NOW ONE Stop: 01/17/22 22:30 Last Admin: 01/17/22 23:16 Dose: 1 inch Documented by: [id number] Rivaroxaban (Rivaroxaban 20 Mg Tab) 20 mg PO NOW STA Stop: 01/18/22 04:07 Last Admin: 01/18/22 05:00 Dose: Not Given Documented by: [id number] Medical Decision Making Laboratory Data Result diagrams: 01/18/22 06:52 01/18/22 06:52 Lab Results 01/17/22 01/17/22 01/17/22 Range/Units 20:45 20:45 20:45 WBC 8.83 (4.8-10.8) K/uL RBC 4.77 (4.7-6.1) M/uL Hgb 14.8 (14.0-18.0) g/dL Hct 43.4 (42-52) % MCV 91.0 (80-100) fL MCH 31.0 (25-34) pg MCHC 34.1 (32-36) g/dL RDW Std Deviation 44.5 (36.4-46.3) fL RDW Coeff of Cheko 13.4 (11.5-14.5) % Plt Count 287 (130-400) K/uL MPV 9.4 (7.4-10.4) fL Immature Gran % (Auto) 0.2 % Neut % (Auto) 64.8 % Lymph % (Auto) 21.4 % [place] % (Auto) 10.3 % Eos % (Auto) 2.8 % Baso % (Auto) 0.5 % Neut # (Auto) 5.72 (1.4-6.5) K/uL Lymph # (Auto) 1.89 (1.2-3.4) K/uL [place] # (Auto) 0.91 H (0.11-0.59) K/uL Eos # (Auto) 0.25 (0-0.5) K/uL Baso # (Auto) 0.04 (0-0.2) K/uL Immature Gran # (Auto) 0.02 (0.00-0.02) K/uL PT 13.0 H (9.0-12.0) Seconds INR 1.3 H (0.9-1.1) APTT 39.7 H (21.0-31.0) Seconds PTT Ratio 1.5 Sodium 138 (136-145) mmol/L Potassium 3.6 (3.5-5.1) mmol/L Chloride 105 (98-107) mmol/L Carbon Dioxide 26 (21-32) mmol/L Anion Gap 7 (3-11) BUN 11 (6-23) mg/dl Creatinine 0.77 (0.6-1.4) mg/dl Est Cr Clr Drug Dosing 116.7 ml/min Est GFR ( Amer) 115.1 ml/min Est GFR (Non-Af Amer) 99.3 ml/min BUN/Creatinine Ratio 14.3 (10-20) Glucose 156 H (70-99(Fasting)) mg/dl Calcium 9.5 (8.5-10.1) mg/dl Total Bilirubin 0.4 (0.2-1.0) mg/dl AST 17 (13-39) U/L ALT 24 (7-52) U/L Alkaline Phosphatase 81 (34-104) U/L Troponin I < 0.03 (0-0.04) ng/ml Total Protein 6.8 (6.0-8.3) gm/dl Albumin 4.4 (3.4-5.0) gm/dl Globulin 2.4 L (2.5-4.0) gm/dl Albumin/Globulin Ratio 1.8 (0.9-2) SARS-CoV-2, RNA, NAAT (NEGATIVE) 01/17/22 Range/Units 23:25 WBC (4.8-10.8) K/uL RBC (4.7-6.1) M/uL Hgb (14.0-18.0) g/dL Hct (42-52) % MCV (80-100) fL MCH (25-34) pg MCHC (32-36) g/dL RDW Std Deviation (36.4-46.3) fL RDW Coeff of Cheko (11.5-14.5) % Plt Count (130-400) K/uL MPV (7.4-10.4) fL Immature Gran % (Auto) % Neut % (Auto) % Lymph % (Auto) % [place] % (Auto) % Eos % (Auto) % Baso % (Auto) % Neut # (Auto) (1.4-6.5) K/uL Lymph # (Auto) (1.2-3.4) K/uL [place] # (Auto) (0.11-0.59) K/uL Eos # (Auto) (0-0.5) K/uL Baso # (Auto) (0-0.2) K/uL Immature Gran # (Auto) (0.00-0.02) K/uL PT (9.0-12.0) Seconds INR (0.9-1.1) APTT (21.0-31.0) Seconds PTT Ratio Sodium (136-145) mmol/L Potassium (3.5-5.1) mmol/L Chloride (98-107) mmol/L Carbon Dioxide (21-32) mmol/L Anion Gap (3-11) BUN (6-23) mg/dl Creatinine (0.6-1.4) mg/dl Est Cr Clr Drug Dosing ml/min Est GFR ( Amer) ml/min Est GFR (Non-Af Amer) ml/min BUN/Creatinine Ratio (10-20) Glucose (70-99(Fasting)) mg/dl Calcium (8.5-10.1) mg/dl Total Bilirubin (0.2-1.0) mg/dl AST (13-39) U/L ALT (7-52) U/L Alkaline Phosphatase (34-104) U/L Troponin I (0-0.04) ng/ml Total Protein (6.0-8.3) gm/dl Albumin (3.4-5.0) gm/dl Globulin (2.5-4.0) gm/dl Albumin/Globulin Ratio (0.9-2) SARS-CoV-2, RNA, NAAT NEGATIVE (NEGATIVE) Imaging Data Radiologist's Impression: Chest X-Ray 01/17/22 20:23 XR chest 1V portable HISTORY: Atypical Chest Pain COMPARISON: Chest 11/30/2021. FINDINGS: The lungs are clear. Cardiac silhouette is normal in size. No pleural effusions. No pneumothorax. IMPRESSION: No acute process. ACT 112: Negative or not required by law. Electronically signed by: Héctor Valente M.D. 01/18/2022 7:58 AM Chest CTA 01/17/22 22:29 CT ANGIOGRAPHY OF THE CHEST, PULMONARY EMBOLUS PROTOCOL CLINICAL HISTORY: Chest pain. Recent covid infection. COMPARISON STUDY: Chest radiograph November 30, 2021 and January 17, 2022. TECHNIQUE: Following IV administration of 94 mL of Optiray, helical axial images of the chest were obtained utilizing the pulmonary embolus protocol. Maximal intensity projections and sagittal and coronal reformats were viewed on an independent 3D workstation. IV contrast was administered without complication. Automated exposure control was utilized for the study. A dose lowering technique was utilized adhering to the principles of ALARA. CT DOSE: 519.52 mGy.cm FINDINGS: No pulmonary emboli are identified. Size of the heart is at the upper limits of normal. There is no pericardial effusion. No enlarged thoracic lymph nodes are present. There is no thoracic aortic dissection. Mild subpleural opacities favor atelectasis atelectasis. There is no consolidation to suggest pneumonia. No pneumothorax or pleural effusion is noted. Mild diffuse bronchial wall thickening is present. No acute fracture or suspicious lesion is identified within visual portions of the bony thorax. Visualized portions of the upper abdomen are unremarkable. IMPRESSION: 1. No pulmonary emboli identified. 2. No consolidation to suggest pneumonia. 3. Mild bronchial wall thickening. ACT 112: Negative or not required by law. Electronically signed by: Con Daniel M.D. 01/18/2022 7:20 AM ECG Data Attestation: I personally reviewed and interpreted this ECG as follows: Indication: + chest pain Additional Comments: Sinus rhythm with occasional Premature ventricular complexes @76 bpm Low voltage QRS Nonspecific T wave abnormality Abnormal ECG When compared with ECG of 30-NOV-2021 20:36, Premature ventricular complexes are now Present Nonspecific T wave abnormality, improved in Lateral leads MDM Narrative Physical exam and history were performed. Nursing notes, EMR, and Medication List were personally reviewed. Patient appears to have substernal chest pain/pressure bringing him to the ER. IV access was established and labs were obtained. EKG shows normal sinus rhythm, however there is a nonspecific T wave abnormality. The patient was given aspirin and Nitropaste here in the ER. He was gently hydrated. Because of his recent Covid history he was sent to CT scan for imaging of his chest. An order was placed for continuous cardiac monitoring. The monitor shows a rate of 92 with normal sinus rhythm. Patient's blood work is as above and was reviewed. He does not have a significantly elevated white blood cell count, gross anemia, bandemia, or significant electrolyte imbalance. Lipase and transaminases are not diagnostic. Troponin x1 is negative. CT scan was reviewed by myself and radiology showing no acute process. Covid swab is negative. On reevaluation the patient had improvement of his symptoms after the aspirin and Nitropaste. Overall I have concerned that his symptoms may be an anginal variant. Case was discussed with my attending, and then with the [facility]. Please see their dictation for further patient course, plan, and disposition. The chart was completed utilizing [employer] Voice Recognition Software. Grammatical errors, random word insertions, pronoun errors, and incomplete sentences are an occasional consequence of this system due to software limitations, ambient noise, and hardware issues. Any formal questions or concerns about the content, text, or information contained within the body of this dictation should be directly addressed to the provider for clarification. . Impression & Plan Atypical chest pain Discharge Plan Visit Data Chief Complaint: Chest Pain Stated Complaint: CHEST PAINS ED Provider: Taco Funez ED Midlevel Provider: Ashok High Discharge Problem: Atypical chest pain Patient Disposition: Admitted As Inpatient Discharge Instructions Interventions: ED Discharge Assessment Last Done: 01/18/22 03:31
== END 2022-01-18 14:15 | disposition home or self-care (01) ==
LOC: EDINP 20:10 → ED 20:10 → EDINP 01-18 03:31

== ENCOUNTER 2023-05-28 09:49 | Inpatient (IN) ==
--- NOTE | 2023-05-28 11:11 | CT Scan Report ---
CT OF THE HEAD WITHOUT CONTRAST CLINICAL HISTORY: Syncope. COMPARISON STUDY: Head CT and CTA of the head January 19, 2020. MRI of the brain June 02, 2016. CT DOSE: 1200.25 mGy.cm TECHNIQUE: Helical axial images of the head were obtained without IV contrast. Automated exposure con trol was utilized for the study. A dose lowering technique was utilized adhering to the principles o f ALARA. FINDINGS: No acute intracranial hemorrhage, midline shift or mass effect is present. A focus of encep halomalacia within the left frontal lobe remains unchanged. The appearance of the brain is unchanged. The ventricular system is unremarkable. The basal cisterns are patent. No extra-axial collections ar e present. There are no findings to suggest acute dural sinus thrombosis or acute territorial infarct . No significant calvarial abnormalities are present. Visualized portions of the sinuses and mastoid air cells are clear. IMPRESSION: No acute intracranial findings. No change in appearance of the brain. ACT 112: Negative or not required by law. Electronically signed by: Con Daniel M.D. 05/28/2023 11:10 AM
[2023-05-28 11:24] LABS: Basophils # (auto) 0.05 K/uL (0-0.2); Basophils % (auto) 0.6 %; Eosinophils # (auto) 0.05 K/uL (0-0.50); Eosinophils % (auto) 0.6 %; Hematocrit (blood only) 43.5 % (42.0-52.0); Hemoglobin 14.9 g/dl (14.0-18.0); Immature Granulocytes # (auto) 0.03 K/uL (0.01-0.20); Immature Granulocytes % (auto) 0.4 %; Lymphocytes % (auto) 14.3 %; Mean Corpuscular Hemoglobin 30.2 pg (25.0-34.0); Mean Corpuscular Hgb Conc 34.3 g/dL (32.0-36.0); Mean Corpuscular Volume 88.1 fL (80.0-100.0); Mean Platelet Volume 9.6 fL (9.4-12.4); Monocytes # (auto) 0.75 K/uL (0.11-0.59); Monocytes % (auto) 9.7 %; Neutrophils # (auto) 5.72 K/uL (1.40-6.50); Neutrophils % (auto) 74.4 %; Platelet Count 296 K/uL (130-400); RDW Coefficient of Variation 12.6 % (11.5-14.5); RDW Standard Deviation 40.6 fL (36.4-46.3); Red Blood Count 4.94 M/uL (4.70-6.10)
--- NOTE | 2023-05-28 11:37 | XRay Report ---
XR chest 1V portable HISTORY: Atypical chest pain. COMPARISON: Chest 05/25/2023. FINDINGS: The lungs are clear. Cardiac silhouette is top normal in size. No pleural effusions. No pne umothorax. IMPRESSION: No acute process. ACT 112: Negative or not required by law. Electronically signed by: Héctor Valente M.D. 05/28/2023 11:35 AM
[2023-05-28 11:38] LABS: Anion Gap 6 (3-11); BUN Creatinine Ratio 17.5 (10-20); Blood Urea Nitrogen 14 mg/dl (6-23); Calcium 9.4 mg/dl (8.6-10.3); Carbon Dioxide 28 mmol/L (21-32); Chloride 105 mmol/L (98-107); Creatinine Clr Calc Pharmacy 106.6 ml/min; Est GFR (African American) 111.7 ml/min; Est GFR (Non-African American) 96.4 ml/min; Glucose 102 mg/dl (70-99(Fasting)); Lipase 47 U/L (11-82); Potassium 4.4 mmol/L (3.5-5.1); Sodium 139 mmol/L (136-145)
[2023-05-28 11:43] LABS: Troponin I High Sensitivity < 2.3 pg/ml (0-20)
--- NOTE | 2023-05-28 12:47 | History & Physical Report ---
Date of Service May 28, 2023 Assessment & Plan (1) Dizziness: (2) Syncopal episodes: Plan: - Admit to tele - Hx of recurrent syncope, vasovagal versus neurocardiogenic in etiology and chronic lightheadedness upon review of outpatient epic notes with cardiology. Pt follows with Dr. Reyes and Carlota Quiñones PA-C regularly - consider cardiology consult pending echo - Check MRI of the brain to r/o acute stroke - consider neuro consult pending MRI results - Check 2D echo (3) Chronic migraine without aura: Plan: - Pt may continue on Depakote for hx of migraine, and was on ajovy, and topamax previously. He has hx of intermittent facial twitching on the left and so has been maintained on these meds - follows with neurology with Carmella Coleman (4) Anxiety: Plan: - Zoloft started about 10 days ago, if no findings on echo or MRI possible that this is and adverse effect from the medication. - Will hold dose for tonight (5) Paroxysmal atrial fibrillation: (6) CAD (coronary artery disease): (7) Hyperlipidemia: (8) HTN (hypertension): Plan: - CAD nonobstructive atherosclerosis- Most recent stress echocardiogram was in Dec 2021 which was negative for reproducible ischemia - Repeat Echo as above - Check lipid panel and A1C - Continue outpatient medications including : asa 81, metoprolol succinate 25 mg, rosuvastatin, and xarelto for anticoagulation - Pt denies any chest pain, palpitations, flutter. - ChadsVasc is 0 DVT ppx: -teds, scds CODE: FULL Dispo: From home, likely to remain in the hospital x 1-2 days A total of 75 minutes were spent with greater than 50% of that time face to face with the patient, personally reviewing all current laboratories, imaging studies, past medication reconciliation, outpatient chart review, and discussion with specialists to collaborate care for the patient with attending. Please see attending documentation for corrections and/or additions. History of Present Illness Chief Complaint: Pre-syncopal episode Primary Care Provider: Carrington Gonzalez MD This is a 63-year-old male with PMHx of paroxysmal A-fib on Xarelto, CAD, HLD, HTN, GERD, migraine and history of neuro cardiogenic syncope who was recently seen in the ER on 05/25 for a syncopal episode associated with nausea and dizziness however ER work-up was unrevealing. At that time his symptoms had improved and he was sent home with instructions to return to the ER if any return of symptoms. He presents today with presyncopal episode and remembers the event in entirety. ~8:45am he states vision became acutely blurry while he was sitting down, and then became nauseated, no vomiting. Pt states that he also had some leg weakness. He waited about 20 minutes and was able to get up and walk, and again felt 'woozy". He was home by himself when the event occured this morning, so called his from work to come bring him to the hospital. and brother are present at bedside. This similar thing happened on Sunday, when he was at a picnic with a group of people as described above with nausea, dizziness, but prior to that episode, the last was over a year ago. He reports his last migraine was about 2 years ago, and since starting ajpriya with the Depakote his migraines have been well controlled. He has had minimal headaches since then but not associated with either of these episodes. Zoloft 50 mg daily was started within the past 10days for anxiety and he has been taking it as directed. Concern that this may be an adverse effect of the medication. he has been taking all his other medications as prescribed. Allergies Allergy/AdvReac Type Severity Reaction Status Date / Time azithromycin Allergy Anxiety/Bhavik Verified 05/28/23 11:57 h Home Medications Medication Instructions Recorded Confirmed Type albuterol sulfate 90 mcg/actuation 2 puff inhalation Q4H PRN 02/12/19 05/28/23 History aerosol inhaler (ProAir HFA) Shortness Of Breath montelukast 10 mg tablet 10 mg PO QAM 02/12/19 05/28/23 History fremanezumab-vfrm 225 mg/1.5 mL 1.5 mg subcut MONTHLY 04/20/19 05/28/23 History subcutaneous syringe (Ajovy Syringe) riboflavin (vitamin B2) 100 mg 100 mg PO QAM 01/19/20 05/28/23 History tablet (Vitamin B-2) divalproex 250 mg tablet,delayed 250 mg PO HS 11/27/20 05/28/23 History release (Depakote) aspirin 81 mg tablet,delayed 81 mg PO QAM 05/22/21 05/28/23 History release (Francisco Low Dose Aspirin) magnesium oxide 400 mg PO QAM 05/22/21 05/28/23 History acetaminophen 500 mg tablet 1,000 mg PO Q6H PRN Pain 07/24/21 05/28/23 History (Tylenol Extra Strength) rivaroxaban 20 mg tablet (Xarelto) 20 mg PO QAM 01/17/22 05/28/23 History potassium chloride 10 mEq 10 meq PO DAILY #30 caps 01/18/22 05/28/23 Rx capsule,extended release famotidine 20 mg tablet 20 mg PO PM 02/20/22 05/28/23 History metoprolol succinate 25 mg 25 mg PO QPM 11/21/22 05/28/23 History tablet,extended release 24 hr cnslodmwnoxn-pnbrdjeb-ostijw tablet 1 tab PO DAILY 11/21/22 05/28/23 History omeprazole 40 mg capsule,delayed 40 mg PO QAM 05/25/23 05/28/23 History release rosuvastatin 20 mg tablet 20 mg PO HS 05/25/23 05/28/23 History sertraline 50 mg tablet 50 mg PO HS 05/25/23 05/28/23 History Past Med/Surg History Medical History (Updated 05/28/23 @ 13:39 by Valerie Maldonado PA-C) Asthma CAD (coronary artery disease) GERD (gastroesophageal reflux disease) HTN (hypertension) Hyperlipidemia Migraine triggered seizures Neurocardiogenic syncope Paroxysmal atrial fibrillation Surgical History H/O colonoscopy History of cardiac catheterization History of esophagogastroduodenoscopy (EGD) Family History Father Stroke, Onset Age: 55 Mother COPD (chronic obstructive pulmonary disease) Other Diabetes Social History Smoking Status: Former smoker Tobacco Type: Cigarettes Second Hand Exposure: No; Do You Dip or Chew Tobacco: Yes; Hx Alcohol Use: No Hx Substance Use: No Preferred Language: Latvian Communication Ability: Effective 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: No Beliefs That Will Affect Care: None Current Living Situation: Spouse Other Information That Helps Us Care for You: No Feels Safe at Home: Yes Safety Concerns: Feels Safe At This Time Assistive Devices: Glasses Review of Systems Review of Systems: Constitutional: No fever, sweats or chills, + facial twitching on the left side Eyes: No diplopia, + acutely blurred vision as per HPI, now resolved ENT: normal hearing, no trouble swallowing Respiratory: No cough, sputum, dyspnea at rest or on exertion Cardiovascular: No chest pain, tightness or palpitations Abdomen: No pain, nausea, vomiting, diarrhea or constipation Musculoskeletal: No joint pain, calf pain, swelling Neurologic: No weakness, + left sided facial numbness/tingling is chronic and occurs with migraines in the past, no balance problems Psychiatric: No anxiety or depression Skin: No rash or itch Physical Exam Physical Exam: General: awake, alert, no apparent distress Head: Normocephalic, atraumatic ENT: PERRL, EOMI, + R sided strabismus, no pharyngeal exudate, mucous membranes moist Chest: Clear to auscultation, on room air, no adventitious breath sounds Cardiac:irregular rhythm with controlled rate in the 50s, no murmur, no JVD, normal peripheral pulses, good capillary refill Abdominal: NABS x 4 quadrants, soft, nondistended, nontender to palpation, no rebound or guarding Extremities: Normal inspection, no peripheral edema or erythema, calfs nontender to palpation Psych: Normal mood and affect Neuro: AAO x 3, strength intact bilaterally and rated 5/5, no motor deficits, negative finger to nose testing, + Right sided horizontal nystagmus, + left sided facial twitching, speech is clear, no peripheral sensory deficits Results & Data Results & Data Vital Signs (Past 12 Hours) Vital Signs Temp Pulse Resp BP Pulse Ox O2 Del Method 05/28/23 10:33 55 L 05/28/23 10:31 Room Air 05/28/23 09:54 36.6 C 59 L 18 144/82 H 96 Room Air Laboratory Results 05/28/23 05/28/23 10:54 10:54 WBC 7.70 RBC 4.94 Hgb 14.9 Hct 43.5 MCV 88.1 MCH 30.2 MCHC 34.3 RDW Std Deviation 40.6 RDW Coeff of [place] 12.6 Plt Count 296 MPV 9.6 Immature Gran % (Auto) 0.4 Neut % (Auto) 74.4 Lymph % (Auto) 14.3 [place] % (Auto) 9.7 Eos % (Auto) 0.6 Baso % (Auto) 0.6 Neut # (Auto) 5.72 Lymph # (Auto) 1.10 L [place] # (Auto) 0.75 H Eos # (Auto) 0.05 Baso # (Auto) 0.05 Immature Gran # (Auto) 0.03 Sodium 139 Potassium 4.4 Chloride 105 Carbon Dioxide 28 Anion Gap 6 BUN 14 Creatinine 0.80 Est Cr Clr Drug Dosing 106.6 Est GFR ( Amer) 111.7 Est GFR (Non-Af Amer) 96.4 BUN/Creatinine Ratio 17.5 Glucose 102 H Calcium 9.4 Troponin I High Sens < 2.3 Lipase 47 Diagnostic Findings Chest X-Ray 05/28/23 10:28 XR chest 1V portable HISTORY: Atypical chest pain. COMPARISON: Chest 05/25/2023. FINDINGS: The lungs are clear. Cardiac silhouette is top normal in size. No pleural effusions. No pneumothorax. IMPRESSION: No acute process. ACT 112: Negative or not required by law. Electronically signed by: Héctor Valente M.D. 05/28/2023 11:[address] 05/28/23 10:28 CT OF THE HEAD WITHOUT CONTRAST CLINICAL HISTORY: Syncope. COMPARISON STUDY: Head CT and CTA of the head January 19, 2020. MRI of the brain June 02, 2016. CT DOSE: 1200.25 mGy.cm TECHNIQUE: Helical axial images of the head were obtained without IV contrast. Automated exposure control was utilized for the study. A dose lowering technique was utilized adhering to the principles of ALARA. FINDINGS: No acute intracranial hemorrhage, midline shift or mass effect is present. A focus of encephalomalacia within the left frontal lobe remains unchanged. The appearance of the brain is unchanged. The ventricular system is unremarkable. The basal cisterns are patent. No extra-axial collections are present. There are no findings to suggest acute dural sinus thrombosis or acute territorial infarct. No significant calvarial abnormalities are present. Visualized portions of the sinuses and mastoid air cells are clear. IMPRESSION: No acute intracranial findings. No change in appearance of the brain. ACT 112: Negative or not required by law. Electronically signed by: Con Daniel M.D. 05/28/2023 11:10 AM Code Status & VTE Plan Code Status Full code - discussed with pt at bedside Supervising Physician Co-Signing Physician Notes Mr. Keith is a 63 year old male with pmhx (per chart) of paroxysmal A-fib on Xarelto, CAD, HLD, HTN, GERD, migraine, and history of neuro cardiogenic syncope. He was recently seen in the ER on 05/25 for a syncopal episode associated with nausea and dizziness however ER work-up was unrevealing. At th at time his symptoms had improved and he was sent home with instructions to return to the ER if any return of symptoms. He presents today with presyncopal episode. Thus far workup is unrevealing. Of note the patient mentions prior neurologic symptoms with migraines including focal numbness (perioral, LUE). Other than syncopal episodes on 05/25 and 05/28 he has not had a similar event in a few years. He also has not had a migraine in the past few years since tx with Ajovy and Depakote. This morning he developed sudden onset of blurred vision followed by nausea and weakness while sitting at rest. Symptoms resolved spontaneously, but when he tried to ambulate he could not maintain balance. He is currently asymptomatic at the time of my exam. He denies any recent or associated f/c/v, CP/pressure, sob, cough, congestion, abdominal pain, diarrhea, or constipation. PE: General: Well nourished, well developed, NAD Head: Normocephalic, atraumatic Eyes: PERRL, EOMI, + R sided strabismus nose: normal, nares patent mouth: MMM, poor dentition Neck: supple, trachea midline CV: Irregular rhythm, normal rate, S1 S2, no m/r/g Pulm: normal effort, Clear to auscultation Abdominal: + bs, soft, NT, ND, no guarding Extremities: Normal inspection, no peripheral edema or erythema, calfs nontender to palpation Psych: Normal mood and affect Neuro: AAO x 3, strength intact bilaterally and rated 5/5 in all 4 extremities, + Right sided horizontal nystagmus, + left sided facial twitching (baseline), speech is clear, no peripheral sensory deficits. + dysmetria on finger to nose testing b/l # Presyncope: complex migraine vs CVA vs vasovagal vs neurocardiogenic hx of recurrent syncope, migraines, follows with neurology as OP will monitor on tele and check an MRI f/u echo consider neuro consult pending MRI results recently started Zoloft, hold for now # migraine GRAVES: continue Depakote and monthly Ajovy when due # PAfib: rate controlled on metoprolol 25 mg hs # CAD: continue BB, ASA, statin no complaints at this time # GERD: no complaints at this time, continue PPI Rest per attested note above
[2023-05-28] MEDS ORDERED: ALBUTEROL HFA 8 GM INHALER INH PRN (14:42)
[2023-05-28] MEDS ORDERED: ONDANSETRON INJ 2 MG/ML 2 ML VIAL IV PRN (14:42)
--- NOTE | 2023-05-28 17:55 | Emergency Department Note ---
History of Present Illness General Chief complaint: Neuro Symptoms/Deficit Stated complaint: FEELS LIKE ABOUT TO PASSOUT, NAUSEA, BLURRY VISON Time Seen by Provider: 05/28/23 10:20 History of Present Illness Provider complaint: Near syncope chest pain Onset (ago): minute(s) (90) Maximum Pain Intensity: 6 63-year-old male presents emergency department for near syncope and chest pain. Patient states his vision went blurry and he felt like he was going to pass out. Patient states he never did lose consciousness but states that everything went blurry around him. He reports some mild chest pain at the time of his near syncope. He states the chest pain is resolved. No shortness of breath. No melena hematochezia. No recent travel. Patient is on Xarelto. reports patient was recently placed on Zoloft for anxiety. Home Medications Medication Instructions Recorded Confirmed Type albuterol sulfate 90 mcg/actuation 2 puff inhalation Q4H PRN 02/12/19 05/28/23 History aerosol inhaler (ProAir HFA) Shortness Of Breath montelukast 10 mg tablet 10 mg PO QAM 02/12/19 05/28/23 History fremanezumab-vfrm 225 mg/1.5 mL 1.5 mg subcut MONTHLY 04/20/19 05/28/23 History subcutaneous syringe (Ajovy Syringe) riboflavin (vitamin B2) 100 mg 100 mg PO QAM 01/19/20 05/28/23 History tablet (Vitamin B-2) divalproex 250 mg tablet,delayed 250 mg PO HS 11/27/20 05/28/23 History release (Depakote) aspirin 81 mg tablet,delayed 81 mg PO QAM 05/22/21 05/28/23 History release (Francisco Low Dose Aspirin) magnesium oxide 400 mg PO QAM 05/22/21 05/28/23 History acetaminophen 500 mg tablet 1,000 mg PO Q6H PRN Pain 07/24/21 05/28/23 History (Tylenol Extra Strength) rivaroxaban 20 mg tablet (Xarelto) 20 mg PO QAM 01/17/22 05/28/23 History potassium chloride 10 mEq 10 meq PO DAILY #30 caps 01/18/22 05/28/23 Rx capsule,extended release famotidine 20 mg tablet 20 mg PO PM 02/20/22 05/28/23 History metoprolol succinate 25 mg 25 mg PO QPM 11/21/22 05/28/23 History tablet,extended release 24 hr kkzzowsdxtpv-tzlolhvj-kbggkw tablet 1 tab PO DAILY 11/21/22 05/28/23 History omeprazole 40 mg capsule,delayed 40 mg PO QAM 05/25/23 05/28/23 History release rosuvastatin 20 mg tablet 20 mg PO HS 05/25/23 05/28/23 History sertraline 50 mg tablet 50 mg PO HS 05/25/23 05/28/23 History Allergies Allergy/AdvReac Type Severity Reaction Status Date / Time azithromycin Allergy Anxiety/Bhavik Verified 05/28/23 11:57 h Past Med/Surg History Medical History Asthma CAD (coronary artery disease) GERD (gastroesophageal reflux disease) HTN (hypertension) Hyperlipidemia Migraine triggered seizures Neurocardiogenic syncope Paroxysmal atrial fibrillation Surgical History H/O colonoscopy History of cardiac catheterization History of esophagogastroduodenoscopy (EGD) Family History Father Stroke, Onset Age: 55 Mother COPD (chronic obstructive pulmonary disease) Other Diabetes Social History Smoking Status: Former smoker Tobacco Type: Cigarettes Second Hand Exposure: No; Do You Dip or Chew Tobacco: Yes; Hx Alcohol Use: No Hx Substance Use: No Preferred Language: Kazakh Communication Ability: Effective Financial Reporting Analyst Required: No Beliefs That Will Affect Care: None Current Living Situation: Spouse Other Information That Helps Us Care for You: No Feels Safe at Home: Yes Safety Concerns: Feels Safe At This Time Assistive Devices: Glasses Physical Exam Vital Signs Vital Signs - 24 hr 05/28/23 09:54 05/28/23 10:31 05/28/23 10:33 Temperature 36.6 C Temperature Source Temporal Artery Scan Pulse Rate 59 L 55 L Pulse Rate from SpO2 Sensor Respiratory Rate 18 Respiratory Effort / Characteristics Non-Labored Respiratory Depth Normal Respiratory Pattern Regular Blood Pressure 144/82 H Blood Pressure Mean 102 Blood Pressure Position Sitting Pulse Oximetry 96 Oxygen Delivery Method Room Air Room Air Sepsis Recent Fever Within 48 Hours No Sepsis New/Unexplained Change in Mental Status No Sepsis Action Taken by Nursing No Action Required 05/28/23 10:24 05/28/23 10:30 05/28/23 11:00 Temperature Temperature Source Pulse Rate 56 L 52 L 55 L Pulse Rate from SpO2 Sensor 57 L 52 L 54 L Respiratory Rate 15 16 14 Respiratory Effort / Characteristics Respiratory Depth Respiratory Pattern Blood Pressure Blood Pressure Mean Blood Pressure Position Pulse Oximetry 95 92 96 Oxygen Delivery Method Sepsis Recent Fever Within 48 Hours Sepsis New/Unexplained Change in Mental Status Sepsis Action Taken by Nursing 05/28/23 11:07 05/28/23 11:07 05/28/23 11:30 Temperature Temperature Source Pulse Rate 49 L 63 Pulse Rate from SpO2 Sensor 48 L 56 L Respiratory Rate 17 18 Respiratory Effort / Characteristics Respiratory Depth Respiratory Pattern Blood Pressure 130/73 Blood Pressure Mean 108 Blood Pressure Position Pulse Oximetry 95 94 Oxygen Delivery Method Sepsis Recent Fever Within 48 Hours Sepsis New/Unexplained Change in Mental Status Sepsis Action Taken by Nursing 05/28/23 12:00 05/28/23 12:26 05/28/23 12:26 Temperature Temperature Source Pulse Rate 47 L 57 L Pulse Rate from SpO2 Sensor 47 L Respiratory Rate 16 22 Respiratory Effort / Characteristics Respiratory Depth Respiratory Pattern Blood Pressure 126/66 Blood Pressure Mean 84 Blood Pressure Position Pulse Oximetry Oxygen Delivery Method Sepsis Recent Fever Within 48 Hours Sepsis New/Unexplained Change in Mental Status Sepsis Action Taken by Nursing 05/28/23 12:30 05/28/23 12:30 05/28/23 13:00 Temperature Temperature Source Pulse Rate 51 L Pulse Rate from SpO2 Sensor Respiratory Rate 17 Respiratory Effort / Characteristics Respiratory Depth Respiratory Pattern Blood Pressure 130/77 139/72 Blood Pressure Mean 85 89 Blood Pressure Position Pulse Oximetry 94 Oxygen Delivery Method Sepsis Recent Fever Within 48 Hours Sepsis New/Unexplained Change in Mental Status Sepsis Action Taken by Nursing 05/28/23 13:00 Temperature Temperature Source Pulse Rate 52 L Pulse Rate from SpO2 Sensor Respiratory Rate 14 Respiratory Effort / Characteristics Respiratory Depth Respiratory Pattern Blood Pressure Blood Pressure Mean Blood Pressure Position Pulse Oximetry Oxygen Delivery Method Sepsis Recent Fever Within 48 Hours Sepsis New/Unexplained Change in Mental Status Sepsis Action Taken by Nursing Physical Exam GENERAL: He is oriented to person, place, and time. He appears well-developed and well-nourished. He does not appear distressed. HENT: Exam performed. - Head: Normocephalic and atraumatic. EYES: Conjunctivae and EOM are normal. Pupils are equal, round, and reactive to light. Right eye exhibits no discharge. Left eye exhibits no discharge. No scleral icterus. NECK: Normal range of motion. Neck supple. No JVD present. CV: Normal rate, regular rhythm, normal heart sounds and intact distal pulses. There is no peripheral edema. Palpable radial pulses bue. PULM/CHEST: Effort normal and breath sounds normal. No respiratory distress. No stridor. He has no wheezes. He has no rales. ABD: The abdomen is soft.There is no tenderness. There is no rebound, no guarding MUSC/SKEL: Normal range of motion. There is no peripheral edema, tenderness or deformity. NEURO: He is alert and oriented to person, place, and time. He has normal strength. No cranial nerve deficit or sensory deficit. Coordination and gait normal. GCS eye subscore is 4. GCS verbal subscore is 5. GCS motor subscore is 6. Cerebellar tests wnl. Course Course 1020: The patient was evaluated in room C3. A complete history and physical exam was performed Cardiac monitoring: An order was placed for continuous cardiac monitoring. The monitor shows a rate of 50 with sinus rhythm interpreted by nv 1250: Vital signs stable. Labs and imaging within normal limits. Discussed the case with the patient and his and offered inpatient observation for syncope work-up versus outpatient follow-up and the patient prefer to be hospitalized inpatient for syncope work-up. Case discussed with ciarra tran will admit the patient to the [facility] team. Medical Decision Making Laboratory Data Attestation: I reviewed the patient's lab results. 05/28/23 10:54 05/28/23 10:54 Lab Results 05/28/23 05/28/23 05/28/23 Range/Units 10:54 10:54 12:15 WBC 7.70 (4.8-10.8) K/ul RBC 4.94 (4.70-6.10) M/uL Hgb 14.9 (14.0-18.0) g/dl Hct 43.5 (42.0-52.0) % MCV 88.1 (80.0-100.0) fL MCH 30.2 (25.0-34.0) pg MCHC 34.3 (32.0-36.0) g/dL RDW Std Deviation 40.6 (36.4-46.3) fL RDW Coeff of [place] 12.6 (11.5-14.5) % Plt Count 296 (130-400) K/uL MPV 9.6 (9.4-12.4) fL Immature Gran % (Auto) 0.4 % Neut % (Auto) 74.4 % Lymph % (Auto) 14.3 % [place] % (Auto) 9.7 % Eos % (Auto) 0.6 % Baso % (Auto) 0.6 % Neut # (Auto) 5.72 (1.40-6.50) K/uL Lymph # (Auto) 1.10 L (1.2-3.4) K/uL [place] # (Auto) 0.75 H (0.11-0.59) K/uL Eos # (Auto) 0.05 (0-0.50) K/uL Baso # (Auto) 0.05 (0-0.2) K/uL Immature Gran # (Auto) 0.03 (0.01-0.20) K/uL Sodium 139 (136-145) mmol/L Potassium 4.4 (3.5-5.1) mmol/L Chloride 105 (98-107) mmol/L Carbon Dioxide 28 (21-32) mmol/L Anion Gap 6 (3-11) BUN 14 (6-23) mg/dl Creatinine 0.80 (0.6-1.4) mg/dl Est Cr Clr Drug Dosing 106.6 ml/min Est GFR ( Amer) 111.7 ml/min Est GFR (Non-Af Amer) 96.4 ml/min BUN/Creatinine Ratio 17.5 (10-20) Glucose 102 H (70-99(Fasting)) mg/dl Calcium 9.4 (8.6-10.3) mg/dl Troponin I High Sens < 2.3 (0-20) pg/ml Lipase 47 (11-82) U/L SARS-CoV-2, RNA, NAAT NEGATIVE (NEGATIVE) Imaging Data Radiologist's Impression: Chest X-Ray 05/28/23 10:28 XR chest 1V portable HISTORY: Atypical chest pain. COMPARISON: Chest 05/25/2023. FINDINGS: The lungs are clear. Cardiac silhouette is top normal in size. No pleural effusions. No pneumothorax. IMPRESSION: No acute process. ACT 112: Negative or not required by law. Electronically signed by: Héctor Valente M.D. 05/28/2023 11:[address] 05/28/23 10:28 CT OF THE HEAD WITHOUT CONTRAST CLINICAL HISTORY: Syncope. COMPARISON STUDY: Head CT and CTA of the head January 19, 2020. MRI of the bra in June 02, 2016. CT DOSE: 1200.25 mGy.cm TECHNIQUE: Helical axial images of the head were obtained without IV contrast. Automated exposure control was utilized for the study. A dose lowering technique was utilized adhering to the principles of ALARA. FINDINGS: No acute intracranial hemorrhage, midline shift or mass effect is present. A focus of encephalomalacia within the left frontal lobe remains uncha nged. The appearance of the brain is unchanged. The ventricular system is unremarkable. The basal cisterns are patent. No extra-axial collections are present. There are no findings to suggest acute dural sinus thrombosis or acute territorial infarct. No significant calvarial abnormalities are present. Visualized portions of the sinuses and mastoid air cells are clear. IMPRESSION: No acute intracranial findings. No change in appearance of the brain. ACT 112: Negative or not required by law. Electronically signed by: Con Daniel M.D. 05/28/2023 11:10 AM ECG Data Attestation: I personally reviewed and interpreted this ECG as follows: Indication: + syncope Rate (beats per minute): 58 Rhythm: + normal sinus ECG Intervals/blocks: + Normal QRS, + Normal SD and + Normal QT-c ECG ST segments: + Normal ST segments [facility] Narrative 1020: The patient was evaluated in room C3. A complete history and physical exam was performed Cardiac monitoring: An order was placed for continuous cardiac monitoring. The monitor shows a rate of 50 with sinus rhythm interpreted by nv 1250: Vital signs stable. Labs and imaging within normal limits. Discussed the case with the patient and his and offered inpatient observation for syncope work-up versus outpatient follow-up and the patient prefer to be hospitalized inpatient for syncope work-up. Case discussed with bradycardia marc will admit the patient to the [facility] team. Impression & Plan Syncopal episodes Discharge Plan Visit Data Chief Complaint: Neuro Symptoms/Deficit Stated Complaint: FEELS LIKE ABOUT TO PASSOUT, NAUSEA, BLURRY VISON ED Provider: David Hsu Discharge Problem: Syncopal episodes Patient Disposition: Admitted As Inpatient Discharge Instructions Interventions: ED Discharge Assessment Last Done: 05/28/23 14:15
--- NOTE | 2023-05-28 18:01 | Magnetic Resonance Report ---
MR brain wo con CLINICAL HISTORY: eval for stroke TECHNIQUE: Multiplanar and multisequence MR images of the brain were obtained without intravenous con trast. Comparison: Comparison is made to MRI brain 06/02/2016 FINDINGS: No abnormal restricted diffusion is identified. The white matter is unremarkable. The ventricular sys tem is normal in appearance. Redemonstration of a multiloculated subcortical cystic abnormality in th e left frontal lobe. There is no mass effect or midline shift. There is no evidence of acute intrapar enchymal hemorrhage. No extra axial fluid collections are seen. The corpus callosum, pituitary gland, and cerebellar tonsils appear grossly unremarkable. Flow voids of the major intracranial arterial vessels are identified. The imaged portions of the para nasal sinuses, mastoid air cells, and orbits are unremarkable. IMPRESSION: 1. No acute abnormalities. 2. Multiloculated subcortical cystic abnormality in the left anterior frontal lobe appears unchanged from prior exam. This likely represents sequelae of a chronic insult. ACT 112: Negative or not required by law. Electronically signed by: Hans Lopez M.D. 05/28/2023 5:59 PM
[2023-05-28] MEDS ORDERED: METOPROLOL SUCC 25MG EXT REL TAB PO SCH (21:00)
[2023-05-28] MEDS: FAMOTIDINE 20 MG TAB PO SCH (21:06)
[2023-05-28] MEDS: ROSUVASTATIN CALCIUM 20 MG TAB PO SCH (21:06)
[2023-05-28] MEDS: DIVALPROEX DELAY RELEASE 250 MG TABEC PO SCH (21:07)
[2023-05-28] MEDS: ACETAMINOPHEN 325 MG TAB PO PRN (21:49)
[2023-05-29] MEDS: ACETAMINOPHEN 325 MG TAB PO PRN (06:27)
[2023-05-29 06:54] LABS: Hematocrit (blood only) 41.8 % (42.0-52.0); Hemoglobin 14.4 g/dl (14.0-18.0); Mean Corpuscular Hgb Conc 34.4 g/dL (32.0-36.0); Mean Corpuscular Volume 87.1 fL (80.0-100.0); Mean Platelet Volume 9.8 fL (9.4-12.4); Platelet Count 278 K/uL (130-400); RDW Coefficient of Variation 12.7 % (11.5-14.5); RDW Standard Deviation 40.6 fL (36.4-46.3); White Blood Count 6.25 K/ul (4.8-10.8)
[2023-05-29 07:15] LABS: BUN Creatinine Ratio 18.4 (10-20); Calcium 9.2 mg/dl (8.6-10.3); Chol HDL Ratio 3.1 (0-5); Creatinine Clr Calc Pharmacy 112.2 ml/min; Est GFR (African American) 114.1 ml/min; Est GFR (Non-African American) 98.5 ml/min; Magnesium 2.1 mg/dl (1.7-2.4); Potassium 4.2 mmol/L (3.5-5.1)
[2023-05-29] MEDS: PANTOprazole 40 MG TAB PO SCH (08:48)
[2023-05-29] MEDS: CEROVITE ADV FORMULA TAB PO SCH (08:48)
[2023-05-29] MEDS: POTASSIUM CHLORIDE 10 MEQ TABCR PO SCH (08:49)
[2023-05-29] MEDS: ASPIRIN 81 MG ECTAB PO SCH (08:49)
[2023-05-29] MEDS: RIVAROXABAN 20 MG TAB PO SCH (08:49)
[2023-05-29] MEDS: MONTELUKAST SODIUM 10 MG TABLET PO SCH (08:49)
[2023-05-29] MEDS: MAGNESIUM OXIDE 400 MG TAB PO SCH (08:50)
[2023-05-29] MEDS ORDERED: NON-FORMULARY MEDICATION (Riboflavin (Vitamin B2) [Vitamin B-2] 100 mg Tablet) PO SCH (09:00)
[2023-05-29 12:29] LABS: Lyme Ab IgG w/WB Rflx Negative (Negative); Lyme Ab IgM w/WB Rflx Negative (Negative)
--- NOTE | 2023-05-29 14:57 | Hospitalist Progress Note ---
Date of Service May 29, 2023 Assessment & Plan (1) Dizziness: Plan 63 year old male with pmhx (per chart) of paroxysmal A-fib on Xarelto, CAD, HLD, HTN, GERD, migraine, and history of neuro cardiogenic syncope. He was recently seen in the ER on 05/25 for a syncopal episode associated with nausea and dizziness however ER work-up was unrevealing. At that time his symptoms had improved and he was sent home with instructions to return to the ER if any return of symptoms. He presents 05/28 with presyncopal episode. Of note the patient mentions prior neurologic symptoms with migraines including focal numbness (perioral, LUE). Other than pre-syncopal episodes on 05/25 and 05/28 he has not had a similar event in a few years. He also has not had a migraine in the past few years since tx with Ajovy and Depakote. This morning he developed sudden onset of blurred vision followed by nausea and weakness while sitting at rest. Symptoms resolved spontaneously, but when he tried to ambulate he could not maintain balance. He is currently asymptomatic at the time of my exam. He denies any recent or associated f/c/v, CP/pressure, sob, cough, congestion, abdominal pain, diarrhea, or constipation. He is being managed for the following: # Presyncope: #. complex migraine vs CVA vs vasovagal vs neurocardiogenic hx of recurrent syncope, migraines, follows with neurology as OP. For presentation symptom see above. Patient did not lose consciousness or fall. Admitting labs fairly WNL, admitting CT head and MRI brain without acute findings. MRI brain with chronic cystic lesion. Echo with EF of 55 to 60%, grade 1 diastolic dysfunction. Concentric LVH x mild. No wall motion abnormality noted. Troponin negative at presentation. EKG with sinus bradycardia, will reduce his home dose of metoprolol to 12.5 and see in the morning. Continue telemetry monitoring, follow-up tick serology. Might need Zio patch monitoring on discharge. Will hold Zoloft and continue to monitor. PT/OT. Orthostatic vitals. No further dizziness while in hospital. # migraine GRAVES:: continue Depakote and monthly Ajovy when due # PAfib: rate controlled on metoprolol 25 mg hs at home, reduce to 12.5 Mg in the morning and continue to monitor. Continue Xarelto. # CAD: continue BB, ASA, statin no complaints at this time # GERD: no complaints at this time, continue PPI Admission and Anticipated Discharge Date Admission Date: May 28, 2023 Subjective Patient seen and examined at bedside as a follow-up of dizziness and presyncopal episodes. Patient was lying in bed, on room air, denies any further dizziness while in hospital. Reports 2 episodes of dizziness in the last 1 week after being started on sertraline in the last 7 to 10 days. First 1 was last Sunday when it lasted for about 30 minutes and was associated with sweating/nausea/lightheadedness/blurry vision. Second 1 was yesterday prior to arrival was lasted around 15 minutes and was associated with lightheadedness/blurry vision/nausea. Patient denies any further dizziness in the hospital. Patient follows Dr. Curry for subcortical cystic lesion in his left anterior frontal lobe. Patient reports eating okay and moving bowels okay, denies any flulike illness or diarrhea. Physical Exam Physical Exam: General: Well nourished, well developed, NAD Head: Normocephalic, atraumatic Eyes: PERRL, EOMI, + R sided strabismus nose: normal, nares patent mouth: MMM, poor dentition Neck: supple, trachea midline CV: Irregular rhythm, normal rate, S1 S2, no m/r/g Pulm: normal effort, Clear to auscultation Abdominal: + bs, soft, NT, ND, no guarding Extremities: Normal inspection, no peripheral edema or erythema, calfs nontender to palpation Psych: Normal mood and affect Neuro: AAO x 3, strength intact bilaterally and rated 5/5 in all 4 extremities, + Right sided horizontal nystagmus, + left sided facial twitching (baseline), speech is clear, no peripheral sensory deficits. Results & Data Results & Data Vital Signs (Past 12 Hours) Vital Signs Temp Pulse Resp BP Pulse Ox O2 Del Method 05/29/23 12:10 37.0 C 49 L 18 118/72 98 Room Air 05/29/23 08:00 Room Air 05/29/23 08:00 37.0 C 48 L 18 113/61 95 Room Air 05/29/23 03:03 36.6 C 50 L 18 105/64 98 Room Air
[2023-05-29] MEDS: ROSUVASTATIN CALCIUM 20 MG TAB PO SCH (20:18)
[2023-05-29] MEDS: DIVALPROEX DELAY RELEASE 250 MG TABEC PO SCH (20:18)
[2023-05-29] MEDS: FAMOTIDINE 20 MG TAB PO SCH (20:19)
[2023-05-29] MEDS ORDERED: METOPROLOL SUCC 25MG EXT REL TAB PO SCH (21:00)
[2023-05-29 23:54] LABS: Appearance Urine Clear (Clear); Bilirubin Urine Negative (Negative); Blood Urine Negative (Negative); Color Urine Yellow; Glucose Urine UA Negative (Negative); Ketones Urine Negative (Negative); Leukocyte Esterase Urine Negative (Negative); Nitrite Urine Negative (Negative); Protein Urine Negative (Negative); Specific Gravity Urine 1.018 (1.000-1.030); Urobilinogen Urine Negative (Negative); pH Urine 5.5 (4.5-7.5)
[2023-05-30 06:45] LABS: Hematocrit (blood only) 41.5 % (42.0-52.0); Hemoglobin 14.2 g/dl (14.0-18.0); Mean Corpuscular Hemoglobin 30.3 pg (25.0-34.0); Mean Corpuscular Hgb Conc 34.2 g/dL (32.0-36.0); Mean Corpuscular Volume 88.5 fL (80.0-100.0); Mean Platelet Volume 9.7 fL (9.4-12.4); Platelet Count 279 K/uL (130-400); RDW Coefficient of Variation 12.5 % (11.5-14.5); RDW Standard Deviation 40.6 fL (36.4-46.3); Red Blood Count 4.69 M/uL (4.70-6.10); White Blood Count 7.46 K/ul (4.8-10.8)
[2023-05-30 07:33] LABS: BUN Creatinine Ratio 17.9 (10-20); Calcium 9.1 mg/dl (8.6-10.3); Creatinine Clr Calc Pharmacy 90.8 ml/min; Est GFR (African American) 99.7 ml/min; Est GFR (Non-African American) 86.1 ml/min; Potassium 4.1 mmol/L (3.5-5.1)
[2023-05-30] MEDS: RIVAROXABAN 20 MG TAB PO SCH (08:28)
[2023-05-30] MEDS: MAGNESIUM OXIDE 400 MG TAB PO SCH (08:28)
[2023-05-30] MEDS: PANTOprazole 40 MG TAB PO SCH (08:29)
[2023-05-30] MEDS: MONTELUKAST SODIUM 10 MG TABLET PO SCH (08:29)
[2023-05-30] MEDS: METOPROLOL SUCC 25MG EXT REL TAB PO SCH (08:30)
[2023-05-30] MEDS: POTASSIUM CHLORIDE 10 MEQ TABCR PO SCH (08:31)
[2023-05-30] MEDS: ASPIRIN 81 MG ECTAB PO SCH (08:31)
[2023-05-30] MEDS: CEROVITE ADV FORMULA TAB PO SCH (08:32)
[2023-05-30 09:34] LABS: Estimated Average Glucose 126 mg/dl
[2023-05-30] MEDS: SODIUM CHLORIDE 0.9% 1000ML 1,000 ML IV SCH ×2 (11:41→19:12)
--- NOTE | 2023-05-30 16:00 | Hospitalist Progress Note ---
Date of Service May 30, 2023 Assessment & Plan (1) Dizziness: Plan 63 year old male with pmhx (per chart) of paroxysmal A-fib on Xarelto, CAD, HLD, HTN, GERD, migraine, and history of neuro cardiogenic syncope. He was recently seen in the ER on 05/25 for a syncopal episode associated with nausea and dizziness however ER work-up was unrevealing. At that time his symptoms had improved and he was sent home with instructions to return to the ER if any return of symptoms. He presents 05/28 with presyncopal episode. Of note the patient mentions prior neurologic symptoms with migraines including focal numbness (perioral, LUE). Other than pre-syncopal episodes on 05/25 and 05/28 he has not had a similar event in a few years. He also has not had a migraine in the past few years since tx with Ajovy and Depakote. This morning he developed sudden onset of blurred vision followed by nausea and weakness while sitting at rest. Symptoms resolved spontaneously, but when he tried to ambulate he could not maintain balance. He is currently asymptomatic at the time of my exam. He denies any recent or associated f/c/v, CP/pressure, sob, cough, congestion, abdominal pain, diarrhea, or constipation. He is being managed for the following: # Presyncope: #. complex migraine vs CVA vs vasovagal vs neurocardiogenic hx of recurrent syncope, migraines, follows with neurology as OP. For presentation symptom see above. Patient did not lose consciousness or fall. Admitting labs fairly WNL, admitting CT head and MRI brain without acute findings. MRI brain with chronic cystic lesion. Echo with EF of 55 to 60%, grade 1 diastolic dysfunction. Concentric LVH x mil d. No wall motion abnormality noted. Troponin negative at presentation. EKG with sinus bradycardia, will reduce his home dose of metoprolol to 12.5 and see in the morning. Continue telemetry monitoring. Might need Zio patch monitoring on discharge. Will hold Zoloft and continue to monitor. PT/OT. Orthostatic vitals. Complains to have nausea and dizziness with ambulation No significant arrhythmia and/or bradycardia noted while in the hospital Will have cautious amount of intravenous fluid to improve blood pressure The beverley has been decreased to control the heart rate He will lab continue PT and possible discharge tomorrow if he feels better #Migraine GRAVES:: continue Depakote and monthly Ajovy when due No acute symptoms # PAfib: rate controlled on metoprolol 25 mg hs at home, reduce to 12.5 Mg in the morning and continue to monitor. Continue Xarelto. Heart rate remains at the lower side at 49 # CAD: continue BB, ASA, statin No complaints at this time Beta-beverley has been decreased to 12.5 mg from 25 mg # GERD: no complaints at this time, continue PPI Likely discharge tomorrow Admission and Anticipated Discharge Date Admission Date: May 28, 2023 Subjective 05/30/2023 The patient was seen and examined in telemetry unit He has been nauseous and he still feels dizziness with ambulation Heart rate remains lower side at 49 without any symptoms He was advised to continue physical therapy Review of Systems Review of Systems: All systems reviewed and are unremarkable except as noted below Physical Exam Physical Exam: Lying in bed comfortably Constitutional: well developed, well nourished and + ill appearing Eyes: PERRL, conjunctivae normal, anicteric sclerae ENMT: external ear and nose normal, oropharynx normal Neck: trachea midline, no thyromegaly Respiratory: no respiratory distress Auscultation: lungs clear to auscultation bilaterally Cardiovascular: Rate/Rhythm: regular rate, regular rhythm and + bradycardic Heart Sounds: normal S1 and normal S2; no murmur Extremities: no edema Gastrointestinal (Abdomen): Inspection/Auscultation: normal bowel sounds; abdomen not distended Percussion/Palpation: abdomen soft; abdomen nontender Musculoskeletal: No acute arthritis involving any joint Neurologic: normal touch/pain/proprioception and moves all extremities; no focal motor deficits Psychiatric: A+Ox3, euthymic affect Lymphatic: no cervical or axillary lymphadenopathy Results & Data Results & Data Vital Signs (Past 12 Hours) Vital Signs Temp Pulse Pulse Resp BP Pulse Ox Pulse Ox 05/30/23 15:37 37.0 C 49 L 17 113/71 95 05/30/23 10:51 95 05/30/23 09:05 67 05/30/23 08:26 62 122/69 05/30/23 07:54 37.0 C 55 L 18 124/72 96 05/30/23 04:00 36.8 C 54 L 18 105/71 97 O2 Del Method O2 Flow Rate 05/30/23 15:37 Room Air 05/30/23 10:51 0 05/30/23 09:05 05/30/23 08:26 05/30/23 07:54 Room Air 05/30/23 04:00 Room Air Laboratory Results Short CBC 05/30/23 Range/Units 06:15 WBC 7.46 (4.8-10.8) K/ul Hgb 14.2 (14.0-18.0) g/dl Hct 41.5 L (42.0-52.0) % Plt Count 279 (130-400) K/uL BMP 05/30/23 06:15 Sodium 138 Potassium 4.1 Chloride 103 Carbon Dioxide 30 BUN 17 Creatinine 0.95 Glucose 106 H Calcium 9.1 Urine 05/29/23 Range/Units Unknown Urine Color Yellow Urine Appearance Clear (Clear) Urine pH 5.5 (4.5-7.5) Ur Specific [place] 1.018 (1.000-1.030) Urine Protein Negative (Negative) Urine Glucose (UA) Negative (Negative) Medications Administered Current Inpatient Medications Acetaminophen (Acetaminophen 325 Mg Tab) 650 mg PO Q4H PRN PRN Reason: Moderate Pain (Scale 4, 5, 6) Stop: 06/27/23 14:41 Last Admin: 05/29/23 06:27 Dose: 650 mg Albuterol (Albuterol Hfa 8 Gm Inhaler) 2 puffs INH Q4H PRN PRN Reason: Shortness Of Breath Stop: 06/27/23 14:41 Aspirin (Aspirin 81 Mg Ectab) 81 mg PO QAM [facility] Stop: 06/28/23 08:59 Last Admin: 05/30/23 08:31 Dose: 81 mg Divalproex Sodium (Divalproex Delay Release 250 Mg Tabec) 250 mg PO HS [facility] Stop: 06/27/23 20:59 Last Admin: 05/29/23 20:18 Dose: 250 mg Famotidine (Famotidine 20 Mg Tab) 20 mg PO PM [facility] Stop: 06/27/23 20:59 Last Admin: 05/29/23 20:19 Dose: 20 mg Sodium Chloride (Nss 1000ml) 1,000 mls @ 125 mls/hr IV .Q8H [facility] Stop: 05/31/23 11:29 Last Admin: 05/30/23 11:41 Dose: 125 mls/hr Magnesium Oxide (Magnesium Oxide 400 Mg Tab) [facility]: 06/28/23 08:59 Last Admin: 05/30/23 08:28 Dose: 400 mg Metoprolol Succinate (Metoprolol Succ 25mg Ext Rel Tab) 12.5 mg PO QAM [facility] Stop: 06/29/23 08:59 Last Admin: 05/30/23 08:30 Dose: 12.5 mg Montelukast Sodium (Montelukast Sodium 10 Mg Tablet) 10 mg PO QAM [facility] Stop: 06/28/23 08:59 Last Admin: 05/30/23 08:29 Dose: 10 mg Multivitamins/Minerals (Cerovite Adv Formula Tab) 1 tab PO DAILY [facility] Stop: 06/28/23 08:59 Last Admin: 05/30/23 08:32 Dose: 1 tab Ondansetron HCl (Ondansetron Inj 2 Mg/Ml 2 Ml Vial) 4 mg IV Q4H PRN PRN Reason: Nausea And Vomiting Stop: 06/27/23 14:41 Last Admin: 05/30/23 11:11 Dose: 4 mg Pantoprazole Sodium (Pantoprazole 40 Mg Tab) [facility] Stop: 06/28/23 08:59 Last Admin: 05/30/23 08:29 Dose: 40 mg Potassium Chloride (Potassium Chloride 10 Meq Tabcr) 10 meq PO DAILY [facility] Stop: 06/28/23 08:59 Last Admin: 05/30/23 08:31 Dose: 10 meq Rivaroxaban (Rivaroxaban 20 Mg Tab) [facility] [place] Stop: 06/28/23 08:59 Last Admin: 05/30/23 08:28 Dose: 20 mg Rosuvastatin Calcium (Rosuvastatin Calcium 20 Mg Tab) 20 mg PO HS [facility] Stop: 06/27/23 20:59 Last Admin: 05/29/23 20:18 Dose: 20 mg
[2023-05-30] MEDS: ROSUVASTATIN CALCIUM 20 MG TAB PO SCH (20:12)
[2023-05-30] MEDS: DIVALPROEX DELAY RELEASE 250 MG TABEC PO SCH (20:12)
[2023-05-30] MEDS: FAMOTIDINE 20 MG TAB PO SCH (20:12)
--- NOTE | 2023-05-30 23:05 | Electrocardiogram Report ---
Test Reason : Blood Pressure : / mmHG Vent. Rate : 058 BPM Atrial Rate : 058 BPM P-R Int : 156 ms QRS Dur : 100 ms QT Int : 430 ms P-R-T Axes : 057 -20 -10 degrees QTc Int : 422 ms Sinus bradycardia Low voltage QRS Borderline ECG When compared with ECG of 25-MAY-2023 10:05, Questionable change in QRS axis T wave inversion now evident in Inferior leads Confirmed by Fredy Vergara ([id number]) on 05/30/2023 11:04:54 PM Referred By: REFERRED SELF Confirmed By:Fredy Vergara
[2023-05-31] MEDS: SODIUM CHLORIDE 0.9% 1000ML 1,000 ML IV SCH (03:14)
[2023-05-31 06:48] LABS: Basophils # (auto) 0.06 K/uL (0-0.2); Basophils % (auto) 0.9 %; Eosinophils # (auto) 0.13 K/uL (0-0.50); Eosinophils % (auto) 1.9 %; Hematocrit (blood only) 39.5 % (42.0-52.0); Hemoglobin 13.5 g/dl (14.0-18.0); Immature Granulocytes # (auto) 0.02 K/uL (0.01-0.20); Immature Granulocytes % (auto) 0.3 %; Lymphocytes # (auto) 1.96 K/uL (1.2-3.4); Lymphocytes % (auto) 28.8 %; Mean Corpuscular Hemoglobin 30.5 pg (25.0-34.0); Mean Corpuscular Hgb Conc 34.2 g/dL (32.0-36.0); Mean Corpuscular Volume 89.4 fL (80.0-100.0); Mean Platelet Volume 9.6 fL (9.4-12.4); Monocytes # (auto) 0.57 K/uL (0.11-0.59); Monocytes % (auto) 8.4 %; Neutrophils # (auto) 4.07 K/uL (1.40-6.50); Neutrophils % (auto) 59.7 %; Platelet Count 248 K/uL (130-400); RDW Coefficient of Variation 12.5 % (11.5-14.5); RDW Standard Deviation 40.8 fL (36.4-46.3); Red Blood Count 4.42 M/uL (4.70-6.10); White Blood Count 6.81 K/ul (4.8-10.8)
[2023-05-31 07:09] LABS: BUN Creatinine Ratio 13.3 (10-20); Calcium 8.7 mg/dl (8.6-10.3); Creatinine Clr Calc Pharmacy 103.5 ml/min; Est GFR (African American) 110.1 ml/min; Potassium 4.1 mmol/L (3.5-5.1)
[2023-05-31] MEDS: CEROVITE ADV FORMULA TAB PO SCH (09:00)
[2023-05-31] MEDS: ASPIRIN 81 MG ECTAB PO SCH (09:00)
[2023-05-31] MEDS: RIVAROXABAN 20 MG TAB PO SCH (09:00)
[2023-05-31] MEDS: PANTOprazole 40 MG TAB PO SCH (09:00)
[2023-05-31] MEDS: POTASSIUM CHLORIDE 10 MEQ TABCR PO SCH (09:01)
[2023-05-31] MEDS: MONTELUKAST SODIUM 10 MG TABLET PO SCH (09:01)
[2023-05-31] MEDS: MAGNESIUM OXIDE 400 MG TAB PO SCH (09:01)
[2023-05-31] MEDS: METOPROLOL SUCC 25MG EXT REL TAB PO SCH (09:10)
--- NOTE | 2023-05-31 12:56 | Hospitalist Progress Note ---
Date of Service May 31, 2023 Assessment & Plan (1) Dizziness: Plan 63 year old male with pmhx (per chart) of paroxysmal A-fib on Xarelto, CAD, HLD, HTN, GERD, migraine, and history of neuro cardiogenic syncope. He was recently seen in the ER on 05/25 for a syncopal episode associated with nausea and dizziness however ER work-up was unrevealing. At that time his symptoms had improved and he was sent home with instructions to return to the ER if any return of symptoms. He presents 05/28 with presyncopal episode. Of note the patient mentions prior neurologic symptoms with migraines including focal numbness (perioral, LUE). Other than pre-syncopal episodes on 05/25 and 05/28 he has not had a similar event in a few years. He also has not had a migraine in the past few years since tx with Ajovy and Depakote. This morning he developed sudden onset of blurred vision followed by nausea and weakness while sitting at rest. Symptoms resolved spontaneously, but when he tried to ambulate he could not maintain balance. He is currently asymptomatic at the time of my exam. He denies any recent or associated f/c/v, CP/pressure, sob, cough, congestion, abdominal pain, diarrhea, or constipation. He is being managed for the following: # Presyncope: #. complex migraine vs CVA vs vasovagal vs neurocardiogenic hx of recurrent syncope, migraines, follows with neurology as OP. For presentation symptom see above. Patient did not lose consciousness or fall. Admitting labs fairly WNL, admitting CT head and MRI brain without acute findings. MRI brain with chronic cystic lesion. Echo with EF of 55 to 60%, grade 1 diastolic dysfunction. Concentric LVH x mil d. No wall motion abnormality noted. Troponin negative at presentation. EKG with sinus bradycardia, will reduce his home dose of metoprolol to 12.5 and see in the morning. Continue telemetry monitoring. Might need Zio patch monitoring on discharge. Will hold Zoloft and continue to monitor. PT/OT. Orthostatic vitals. Complains to have nausea and dizziness with ambulation No significant arrhythmia and/or bradycardia noted while in the hospital Will have cautious amount of intravenous fluid to improve blood pressure The beverley has been decreased to control the heart rate Has had PT evaluation, did not have any symptoms of dizziness or palpitation or even shortness of breath and the patient is cleared for home Bradycardia Doubt that dizziness is caused by bradycardia Heart rate remains upper 50s in the hospital and upper 40s during sleep without any symptoms Beta-beverley has been decreased to 12.5 mg/day Further adjustment of beta-bveerley be done by the agriculturist on outpatient #Migraine GRAVES:: continue Depakote and monthly Ajovy when due No acute symptoms # PAfib: rate controlled on metoprolol 25 mg hs at home, reduce to 12.5 Mg in the morning and continue to monitor. Continue Xarelto. Heart rate remains at the lower side at 49 # CAD: continue BB, ASA, statin No complaints at this time Beta-beverley has been decreased to 12.5 mg from 25 mg # GERD: no complaints at this time, continue PPI Will be discharged home this afternoon Admission and Anticipated Discharge Date Admission Date: May 28, 2023 Subjective 05/30/2023 The patient was seen and examined in telemetry unit He has been nauseous and he still feels dizziness with ambulation Heart rate remains lower side at 49 without any symptoms He was advised to continue physical therapy 05/31/2023 The patient was seen and examined in telemetry unit He has been feeling much better and denies any symptoms No evidence of bradycardia arrhythmia Data physical therapy without any symptoms and did very well Will be discharged home this afternoon Review of Systems Review of Systems: All systems reviewed and are unremarkable except as noted below Physical Exam Physical Exam: Lying in bed comfortably Constitutional: well developed, well nourished and + ill appearing Eyes: PERRL, conjunctivae normal, anicteric sclerae ENMT: external ear and nose normal, oropharynx normal Neck: trachea midline, no thyromegaly Respiratory: no respiratory distress Auscultation: lungs clear to auscultation bilaterally Cardiovascular: Rate/Rhythm: regular rate, regular rhythm and + bradycardic Heart Sounds: normal S1 and normal S2; no murmur Extremities: no edema Gastrointestinal (Abdomen): Inspection/Auscultation: normal bowel sounds; abdomen not distended Percussion/Palpation: abdomen soft; abdomen nontender Musculoskeletal: No acute arthritis involving any joint Neurologic: normal touch/pain/proprioception and moves all extremities; no focal motor deficits Psychiatric: A+Ox3, euthymic affect Lymphatic: no cervical or axillary lymphadenopathy Results & Data Results & Data Vital Signs (Past 12 Hours) Vital Signs Temp Pulse Pulse Resp BP Pulse Ox O2 Del Method 05/31/23 12:11 36.5 C 57 L 18 123/70 95 Room Air 05/31/23 09:08 66 19 132/75 96 Room Air 05/31/23 08:14 51 L 05/31/23 07:06 36.6 C 56 L 20 143/82 H 96 Room Air 05/31/23 03:50 36.5 C 47 L 18 118/61 94 Room Air Laboratory Results Short CBC 05/31/23 Range/Units 06:18 WBC 6.81 (4.8-10.8) K/ul Hgb 13.5 L (14.0-18.0) g/dl Hct 39.5 L (42.0-52.0) % Plt Count 248 (130-400) K/uL BMP 05/31/23 06:18 Sodium 139 Potassium 4.1 Chloride 107 Carbon Dioxide 28 BUN 11 Creatinine 0.83 Glucose 135 H Calcium 8.7 Medications Administered Current Inpatient Medications Acetaminophen (Acetaminophen 325 Mg Tab) 650 mg PO Q4H PRN PRN Reason: Moderate Pain (Scale 4, 5, 6) Stop: 06/27/23 14:41 Last Admin: 05/29/23 06:27 Dose: 650 mg Albuterol (Albuterol Hfa 8 Gm Inhaler) 2 puffs INH Q4H PRN PRN Reason: Shortness Of Breath Stop: 06/27/23 14:41 Aspirin (Aspirin 81 Mg Ectab) 81 mg PO QAM [facility] Stop: 06/28/23 08:59 Last Admin: 05/31/23 09:00 Dose: 81 mg Divalproex Sodium (Divalproex Delay Release 250 Mg Tabec) 250 mg PO HS [facility] Stop: 06/27/23 20:59 Last Admin: 05/30/23 20:12 Dose: 250 mg Famotidine (Famotidine 20 Mg Tab) 20 mg PO PM [facility] Stop: 06/27/23 20:59 Last Admin: 05/30/23 20:12 Dose: 20 mg Magnesium Oxide (Magnesium Oxide 400 Mg Tab) 400 mg PO QAM [facility] Stop: 06/28/23 08:59 Last Admin: 05/31/23 09:01 Dose: 400 mg Metoprolol Succinate (Metoprolol Succ 25mg Ext Rel Tab) 12.5 mg PO QAM [facility] Stop: 06/29/23 08:59 Last Admin: 05/31/23 09:10 Dose: 12.5 mg Montelukast Sodium (Montelukast Sodium 10 Mg Tablet) 10 mg PO QAM [facility] Stop: 06/28/23 08:59 Last Admin: 05/31/23 09:01 Dose: 10 mg Multivitamins/Minerals (Cerovite Adv Formula Tab) 1 tab PO DAILY [facility] Stop: 06/28/23 08:59 Last Admin: 05/31/23 09:00 Dose: 1 tab Ondansetron HCl (Ondansetron Inj 2 Mg/Ml 2 Ml Vial) 4 mg IV Q4H PRN PRN Reason: Nausea And Vomiting Stop: 06/27/23 14:41 Last Admin: 05/30/23 11:11 Dose: 4 mg Pantoprazole Sodium (Pantoprazole 40 Mg Tab) [facility] [place] Stop: 06/28/23 08:59 Last Admin: 05/31/23 09:00 Dose: 40 mg Potassium Chloride (Potassium Chloride 10 Meq Tabcr) 10 meq PO DAILY [facility] Stop: 06/28/23 08:59 Last Admin: 05/31/23 09:01 Dose: 10 meq Rivaroxaban (Rivaroxaban 20 Mg Tab) 20 [facility] [place] Stop: 06/28/23 08:59 Last Admin: 05/31/23 09:00 Dose: 20 mg Rosuvastatin Calcium (Rosuvastatin Calcium 20 Mg Tab) 20 mg PO HS [facility] Stop: 06/27/23 20:59 Last Admin: 05/30/23 20:12 Dose: 20 mg
--- NOTE | 2023-05-31 16:57 | Discharge Summary ---
Date of Service May 31, 2023 Admission HPI Per Admitting Provider This is a 63-year-old male with PMHx of paroxysmal A-fib on Xarelto, CAD, HLD, HTN, GERD, migraine and history of neuro cardiogenic syncope who was recently seen in the ER on 05/25 for a syncopal episode associated with nausea and dizziness however ER work-up was unrevealing. At that time his symptoms had improved and he was sent home with instructions to return to the ER if any return of symptoms. He presents today with presyncopal episode and remembers the event in entirety. ~8:45am he states vision became acutely blurry while he was sitting down, and then became nauseated, no vomiting. Pt states that he also had some leg weakness. He waited about 20 minutes and was able to get up and walk, and again felt 'woozy". He was home by himself when the event occured this morning, so called his from work to come bring him to the hospital. and brother are present at bedside. This similar thing happened on Sunday, when he was at a picnic with a group of people as described above with nausea, dizziness, but prior to that episode, the last was over a year ago. He reports his last migraine was about 2 years ago, and since starting ajovy with the Depakote his migraines have been well controlled. He has had minimal headaches since then but not associated with either of these episodes. Zoloft 50 mg daily was started within the past 10days for anxiety and he has been taking it as directed. Concern that this may be an adverse effect of the medication. he has been taking all his other medications as prescribed. Admission Exam Per Admitting Provider Physical Exam: General: awake, alert, no apparent distress Head: Normocephalic, atraumatic ENT: PERRL, EOMI, + R sided strabismus, no pharyngeal exudate, mucous membranes moist Chest: Clear to auscultation, on room air, no adventitious breath sounds Cardiac:irregular rhythm with controlled rate in the 50s, no murmur, no JVD, normal peripheral pulses, good capillary refill Abdominal: NABS x 4 quadrants, soft, nondistended, nontender to palpation, no rebound or guarding Extremities: Normal inspection, no peripheral edema or erythema, calfs nontender to palpation Psych: Normal mood and affect Neuro: AAO x 3, strength intact bilaterally and rated 5/5, no motor deficits, negative finger to nose testing, + Right sided horizontal nystagmus, + left sided facial twitching, speech is clear, no peripheral sensory deficits Principal Diagnosis Dizziness with presyncope, bradycardia, complex migraine, persistent atrial fibrillation Discharge Exam Lying in bed comfortably Constitutional well developed, well nourished and + ill appearing Eyes PERRL, conjunctivae normal, anicteric sclerae ENMT external ear and nose normal, oropharynx normal Neck trachea midline, no thyromegaly Respiratory no respiratory distress Auscultation: lungs clear to auscultation bilaterally Cardiovascular Rate/Rhythm: regular rate, regular rhythm and + bradycardic Heart Sounds: normal S1 and normal S2; no murmur Extremities: no edema Gastrointestinal (Abdomen) Inspection/Auscultation: normal bowel sounds; abdomen not distended Percussion/Palpation: abdomen soft; abdomen nontender Neurologic normal touch/pain/proprioception and moves all extremities; no focal motor deficits Psychiatric A+Ox3, euthymic affect Lymphatic no cervical or axillary lymphadenopathy Discharge Data Allergies Allergy/AdvReac Type Severity Reaction Status Date / Time azithromycin Allergy Anxiety/Bhavik Verified 05/28/23 11:57 h Consultations 05/28/23 12:15 ED Decision to Admit Stat Ordered Studies 05/28/23 10:28 CT head/brain wo con Stat 05/28/23 13:07 MRI Brain [MR brain wo con] Stat Hospital Course (1) Dizziness: Plan 63 year old male with pmhx (per chart) of paroxysmal A-fib on Xarelto, CAD, HLD, HTN, GERD, migraine, and history of neuro cardiogenic syncope. He was recently seen in the ER on 05/25 for a syncopal episode associated with nausea and dizz iness however ER work-up was unrevealing. At that time his symptoms had improved and he was sent home with instructions to return to the ER if any return of symptoms. He presents 05/28 with presyncopal episode. Of note the patient mentions prior neurologic symptoms with migraines including focal numbness (perioral, LUE). Other than pre-syncopal episodes on 05/25 and 05/28 he has not had a similar event in a few years. He also has not had a migraine in the past few years since tx with Ajovy and Depakote. This morning he developed sudden onset of blurred vision followed by nausea and weakness while sitting at rest. Symptoms resolved spontaneously, but when he tried to ambulate he could not maintain balance. He is currently asymptomatic at the time of my exam. He denies any recent or associated f/c/v, CP/pressure, sob, cough, congestion, abdominal pain, diarrhea, or constipation. He is being managed for the following: # Presyncope: #. complex migraine vs CVA vs vasovagal vs neurocardiogenic hx of recurrent syncope, migraines, follows with neurology as OP. For presentation symptom see above. Patient did not lose consciousness or fall. Admitting labs fairly WNL, admitting CT head and MRI brain without acute findings. MRI brain with chronic cystic lesion. Echo with EF of 55 to 60%, grade 1 diastolic dysfunction. Concentric LVH x mild. No wall motion abnormality noted. Troponin negative at presentation. EKG with sinus bradycardia, will reduce his home dose of metoprolol to 12.5 and see in the morning. Continue telemetry monitoring. Might need Zio patch monitoring on discharge. Will hold Zoloft and continue to monitor. PT/OT. Orthostatic vitals. Complains to have nausea and dizziness with ambulation No significant arrhythmia and/or bradycardia noted while in the hospital Will have cautious amount of intravenous fluid to improve blood pressure The beverley has been decreased to control the heart rate Has had PT evaluation, did not have any symptoms of dizziness or palpitation or even shortness of breath and the patient is cleared for home Bradycardia Doubt that dizziness is caused by bradycardia Heart rate remains upper 50s in the hospital and upper 40s during sleep without any symptoms Beta-beverley has been decreased to 12.5 mg/day Further adjustment of beta-beverley be done by the clinching machine operator on outpatient #Migraine GRAVES:: continue Depakote and monthly Ajovy when due No acute symptoms # PAfib: rate controlled on metoprolol 25 mg hs at home, reduce to 12.5 Mg in the morning and continue to monitor. Continue Xarelto. Heart rate remains at the lower side at 49 # CAD: continue BB, ASA, statin No complaints at this time Beta-beverley has been decreased to 12.5 mg from 25 mg # GERD: no complaints at this time, continue PPI Will be discharged home this afternoon Total Time Total Time Spent Total Time Spent (In Minutes): 35 minutes Discharge Plan Discharge Items Patient Disposition: Home - Self-Care Reason For Visit: SYNCOPAL EPISODE Discharge Diagnosis: Dizziness with presyncope, bradycardia, complex migraine, persistent atrial fibrillation Condition on Discharge: Good Activity: Resume your previous activity Non-emergency contact: Primary Care Provider Call non-emergency contact if: you have any medication questions and your symptoms worsen Follow-up/Referrals: Carrington Gonzalez MD [Primary Care Provider] - (Date & Time 06/08/2023 11:00 AM Provider Carrington Gonzalez MD Department [facility] ) Diet: Heart Healthy Addtl Attending Provider Instructions: Please take precautions to avoid falls Your PCPs office will arrange for Zio patch placement Your metoprolol succinate dose has been decreased to 12.5 mg Please try to drink more fluid We will hold your Zoloft for now Please keep appointment with your healthcare providers Pending Studies at Discharge: No Stand-Alone Forms: My [facility] [employer], Smoking Cessation Medications and DC Order Prescriptions: Continued montelukast 10 mg tablet 10 mg PO QAM albuterol sulfate [ProAir HFA] 90 mcg/actuation HFA aerosol inhaler 2 puff Inhalation Q4H PRN (Reason: Shortness Of Breath) Ajovy Syringe 225 mg/1.5 mL syringe 1.5 mg subcut MONTHLY Rx Instructions: TAKES NEAR THE BEGINNING OF THE MONTH riboflavin (vitamin B2) [Vitamin B-2] 100 mg Tablet 100 mg PO QAM divalproex [Depakote] 250 mg tablet,delayed release (DR/EC) 250 mg PO HS aspirin [Francisco Low Dose Aspirin] 81 mg Tablet,Delayed Release (Dr/Ec) 81 mg PO QAM magnesium oxide 400 mg magnesium Tablet 400 mg PO QAM acetaminophen [Tylenol Extra Strength] 500 mg Tablet 1,000 mg PO Q6H PRN (Reason: Pain) famotidine 20 mg tablet 20 mg PO PM [id number] Tablet 1 tab PO DAILY Xarelto 20 mg tablet 20 mg PO QAM potassium chloride 10 mEq capsule, extended release 10 meq PO DAILY Qty: 30 0RF omeprazole 40 mg capsule,delayed release(DR/EC) 40 mg PO QAM rosuvastatin 20 mg tablet 20 mg PO HS Changed metoprolol succinate 25 mg tablet extended release 24 hr 12.5 mg PO QPM Qty: 1 0RF Discontinued sertraline 50 mg tablet 50 mg PO HS Discharge Orders: Discharge Order (Routine); Ordered 05/31/23 Ordered By: Dimitri Rose/Other Patient Handouts: Understanding Deep Vein Thrombosis, Prediabetes, 5 Steps for Eating Healthier, Understanding Bradycardia Admission Data Admit Date/Time: 05/28/23 13:07 Attending Provider: Dimitri Crenshaw Admit Provider: Ariana Kenney Primary Care Provider: Carrington Gonzalez Other Providers: Ariana Kenney ; Raghu Nagy Other Interventions: Discharge Summary Assessment (RN) Last Done: 05/31/23 15:05
--- NOTE | 2023-05-31 22:05 | Electrocardiogram Report ---
Test Reason : Blood Pressure : / mmHG Vent. Rate : 046 BPM Atrial Rate : 046 BPM P-R Int : 156 ms QRS Dur : 102 ms QT Int : 462 ms P-R-T Axes : 065 -19 015 degrees QTc Int : 404 ms Poor data quality, interpretation may be adversely affected Sinus bradycardia Low voltage QRS Borderline ECG When compared with ECG of 28-MAY-2023 10:02, No significant change was found Confirmed by Fredy Vergara ([id number]) on 05/31/2023 10:04:56 PM Referred By: REFERRED SELF Confirmed By:Fredy Vergara
[2023-06-04 01:06] LABS: Ehrlichia chaff DNA Bld Negative (Negative)
[2023-06-06 17:42] LABS: Babesia microti DNA Not Detected (Not Detected); Q Fever IgG, Phase I NEGATIVE; Q Fever Phase I IgM Antibody NEGATIVE; Q Fever Phase II IgG Antibody NEGATIVE; Q Fever Phase II IgM Antibody NEGATIVE; R. typhi IgG Ab NOT DETECTED; R. typhi IgM Ab NOT DETECTED; RMSF IgG Ab NOT DETECTED; RMSF IgM Ab NOT DETECTED
== END 2023-05-31 16:02 | disposition home or self-care (01) | DRG 149 ==
LOC: ED 09:49 → 2E 13:07 → SUATTDRO 13:07 → 2E 14:15